=== PATIENT | male | born 1960 | race American Indian/Alaskan Native ===

== ENCOUNTER 2016-10-26 12:15 | Inpatient (IN) | payer MEDICARE ==
[2016-10-26 14:17] LABS: Basophils % (Auto) 0.9 % (0.0-1.8); Eosinophils % (Auto) 1.9 % (0.0-4.3); Hematocrit 46.4 % (35.5-45.6); Hemoglobin 15.4 gm/dl (11.8-15.2); Mean Corpuscular HGB Conc 33 % (32-34); Mean Corpuscular Hemoglobin 27 pg (28-32); Mean Corpuscular Volume 81 fl (84-94); Platelet Count 262 K/mm3 (140-440); Red Blood Count 5.72 M/mm3 (3.65-5.03); Red Cell Distribution Width 13.8 % (13.2-15.2); White Blood Count 10.9 K/mm3 (4.5-11.0)
[2016-10-26 14:25] LABS: INR 1.01 (0.87-1.13); Partial Thromboplastin Time 24.7 Sec. (24.2-36.6)
[2016-10-26 14:35] LABS: Albumin 3.9 g/dL (3.9-5); Albumin/Globulin Ratio 1.3 %; Bilirubin,Total 0.6 mg/dL (0.1-1.2); Calcium 10.2 mg/dL (8.4-10.2); Chloride 97.5 mmol/L (98-107); Magnesium 2.1 mg/dL (1.7-2.3); Potassium 4.4 mmol/L (3.6-5.0)
--- NOTE | 2016-10-26 14:40 | Emergency Department Report ---
HPI - General Chief Complaint: Altered Mental Status Time Seen by Provider: 10/26/16 13:55 - HPI HPI: Chief complaint: Dehydration HPI: Patient states that he's been home from the hospital since October 10 where he was admitted for a stroke. Patient states he's been unable to eat since then and has a feeding tube in. Patient states that the feeding tube feedings do not agree with him and every time he gets them he vomits. Patient states he' s only been able to keep water down through his PEG tube since he got home. Patient also states that he was put on Coumadin as well as other medications upon discharge but never received any of his medications. Patient states he has not taken any medications since he got home. Patient is here because he was sent by his home health nurse to rule out dehydration. Patient is emotionally labile. Patient denies any new weaknesses. Patient is unable to walk. Mode of arrival: EMS Source: Patient old chart and nursing notes Began: See above Duration: See above Context: See above Quality: Denies pain Severity: 0 out of 10 Improved with: Nothing Worsened with: Feedings Associated signs and symptoms: No cough or cold or fever. No diarrhea ED Past Medical Hx - Past Medical History Hx Hypertension: Yes Hx CVA: Yes Hx Heart Attack/AMI: Yes Hx Congestive Heart Failure: Yes Hx Diabetes: Yes Hx Renal Disease: Yes (CHRONIC KIDNEY DISEASE) Hx Seizures: Yes Hx Asthma: No Hx COPD: No Hx HIV: No Additional medical history: AFIB - Surgical History Hx Coronary Stent: Yes Hx Open Heart Surgery: Yes (double bypass September 2013) Hx Pacemaker: No Hx Internal Defibrillator: Yes - Social History Smoking Status: Never Smoker Substance Use Type: None - Medications Home Medications: Home Medications Medication Instructions Recorded Confirmed Last Taken Type Aspirin [Aspirin BABY CHEW TAB] 81 mg PO QDAY #30 tab.chew 05/25/16 09/03/16 Unknown Rx Carvedilol [Coreg] 25 mg PO BID #60 tablet 05/25/16 09/03/16 Unknown Rx Clopidogrel [Plavix] 75 mg PO QDAY #30 tablet 05/25/16 09/03/16 Unknown Rx Gabapentin [Neurontin] 100 mg PO Q8HR #90 capsule 05/25/16 09/03/16 Unknown Rx Insulin NPH/Regular [NovoLIN 70/30] 22 unit SUB-Q BIDDIAB #1 units 05/25/16 Unknown Rx Simvastatin [Zocor TAB] 40 mg PO QHS #30 tablet 05/25/16 09/03/16 Unknown Rx oxyCODONE /ACETAMINOPHEN [Percocet 1 tab PO Q6HR PRN #20 tablet 09/03/16 Unknown Rx 5/325] ED Review of Systems ROS: Stated complaint: LOC/AMS Other details as noted in HPI ROS Constitutional: No fever ENT: No uri symptoms Cardiovascular: No chest pain Respiratory: No sob or cough GI: Nodiarrhea : No dysuria frequency or urgency, Skin: No rash Neuro: See HPI Psych: No depression Murphy/lymph: No edema Physical Exam - Physical Exam Vital Signs: Vital Signs 10/26/16 13:05 Temperature 97.2 F L Pulse Rate 101 H Respiratory 16 Rate Blood Pressure 122/88 O2 Sat by Pulse 100 Oximetry Physical Exam: GENERAL: The patient is well-developed well-nourished . HEENT: Normocephalic. Atraumatic. Extraocular motions are intact. Patient has moist mucous membranes. NECK: Supple. No meningitic signs are noted. There is no adenopathy noted. CHEST/LUNGS: Clear to auscultation. There is no respiratory distress noted. HEART/CARDIOVASCULAR: Regular. There is no tachycardia. There is no gallop rub or murmur. ABDOMEN: Abdomen is soft, nontender. Patient has normal bowel sounds. There is no abdominal distention. SKIN: There is no rash. There is no edema. There is no diaphoresis. NEURO: The patient is awake, alert, and oriented. The patient is cooperative. The patient dysarthria. Patient's left arm weaker than his right and patient has incoordination of his right side with finger to nose. No drift to his lower extremities. MUSCULOSKELETAL: There is no tenderness or deformity. There is no evidence of acute injury. ED Course Vital Signs 10/26/16 13:05 Temperature 97.2 F L Pulse Rate 101 H Respiratory 16 Rate Blood Pressure 122/88 O2 Sat by Pulse 100 Oximetry ED Medical Decision Making - Lab Data Result diagrams: 10/26/16 13:54 10/26/16 13:54 Laboratory Tests 10/26/16 10/26/16 10/26/16 13:54 13:54 13:54 PT 13.2 INR 1.01 APTT 24.7 Lactic Acid 2.7 H* Magnesium 2.1 Total Bilirubin 0.6 Laboratory Tests 10/26/16 15:17 Ur Specific [place] 1.023 Urine Protein >500 Urine Glucose (UA) >=500 Urine Ketones Tr Urine Urobilinogen < 2.0 Urine WBC (Auto) < 1.0 Urine RBC (Auto) 1.0 U Epithel Cells (Auto) < 1.0 - EKG Data -: EKG Interpreted by Me EKG shows normal: sinus rhythm Rate: normal (100) - EKG Data When compared to previous EKG there are: no significant change Interpretation: LVH (with repolarization abnormality), other (atrial abnormality ) - Radiology Data Radiology results: report reviewed (chest x-ray shows no acute process.) Critical care attestation.: If time is entered above; I have spent that time in minutes in the direct care of this critically ill patient, excluding procedure time. ED Disposition Clinical Impression: Dehydration, Renal insufficiency, Hyperglycemia, Elevated lactic acid level Disposition: OP ADMITTED IP TO THIS HOSP Is pt being admited?: Yes Does the pt Need Aspirin: Yes Condition: Fair Time of Disposition: 15:38 (admit to the hospitalist)
--- NOTE | 2016-10-26 15:23 | XRay Report ---
CHEST ONE VIEW INDICATION: Shortness of breath. COMPARISON: 09/03/2016. FINDINGS: Portable, single, frontal chest radiograph demonstrates stable cardiomediastinal silhouette, post CABG changes and left AICD with single ventricular lead. Slight right mid lung atelectasis; otherwise unremarkable lungs. Stable bones. Extrinsic EKG leads. CONCLUSION: No acute disease in the chest. Thank you for the opportunity to participate in this patient's care.
[2016-10-26 15:52] LABS: Bacteria,Urine 1+ /HPF (Negative); Bilirubin,Urine NEG (Negative); Blood,Urine NEG (Negative); Ketones,Urine TR mg/dL (Negative); Leukocyte Esterase,Urine NEG (Negative); Mucus,Urine FEW /HPF; Nitrite,Urine NEG (Negative); Protein,Urine >500 mg/dL (Negative); Urobilinogen,Urine < 2.0 mg/dL (<2.0); WBC,Urine < 1.0 /HPF (0.0-6.0)
[2016-10-26] MEDS ORDERED: ASPIRIN PO ONE (17:24)
--- NOTE | 2016-10-26 17:53 | Admit Criteria Form ---
Admission Criteria Documentation: RENAL FAILURE, ACUTE Clinical Indications for Admission to Inpatient Care ( Place 'X' for any and all applicable criteria): Admission is indicated for ALL (if I & II) or III of the following [A](2)(3)(4)( 5)(6)(7): [ ]I. Acute renal failure as indicated by ANY ONE of the following: [ ]a) A 3-fold rise in serum creatinine from baseline [ ]b) Serum creatinine greater than 4 mg/dL (354 micromoles/L) with an acute rise greater than 0.5 mg/dL (44.2 micromoles/L) [ ]c) Reduction of more than 75% in estimated glomerular filtration rate from baseline [ ]d) Estimated glomerular filtration rate less than 35 mL/min/1.73m2 (0.59mL/sec/1.73m2)in a child up to 18 years of age [ ]e) Anuria indicated by ALL of the following: [ ]i) Adequate volume status [ ]ii) Cessation of urine output indicated by ANY ONE of the following: [ ]1) Urine output less than 0.3 mL/kg/hr for 24 hours [ ]2) Anuria (urine output less than 0.1 mL/kg/ hr) for 12 hours [X] II. Renal failure cannot be managed in an outpatient setting or observational care setting as indicating by ANY ONE of the following: [ ]a) Altered mental status that is severe or persistent [ ]b) Volume overload or Respiratory distress (eg, clinically significant pulmonary edema) that is severe or persistent [ ]c) Cardiac arrhythmias of immediate concern [ ]d) Hemodynamic instability [ ]e) Clinically significant electrolyte abnormality that requires inpatient care (eg, hyperkalemia with severe ECG findings)[B] [X]f) Clinically significant metabolic abnormality (eg, acidosis) that is severe or persistent [ ]g) Acute treatment of renal failure (eg, renal replacement therapy) not feasible or appropriate in observational care setting [ ]h) Clinical situation too unstable or uncertain (eg, inadequate urine output, ongoing decline in renal function, etiology unclear) [ ]i) Necessary support and caregiver ability to comply with outpatient treatment cannot be arranged in observation care timeframe (eg, within 24 hours) [ ]j) Other significant finding or clinical condition judged not to be within scope of observation care [X]III.General contraindications and/or Inappropriate clinical situations for Observational Care in patients with Acute Renal Failure, when ANY ONE of the following is required: [X]a) Prediction of prolongation of LOS based on ANY ONE of the following may be considered as a contraindication for observational care 2, 3, 4, 5, 6, 7, 8 , 9, 10, 11 [ ]i) Age > 65 yrs. [X]ii) Patient arriving by ambulance [ ]iii) Patient with high acuity [ ]iv) Patient requiring vital sign monitoring [ ]v) Patient on IV medication [ ]b) Systolic blood pressures 180mmHg 3,12 [ ]c) Patient with altered mental status including delirium and other alteration of consciousness, (3) [ ]d) Patient whose discharge disposition will be to a half-way home or rehabilitation home should not be managed in Emergency Department Observation Unit. CMS rule requires 3 days hospital stay before such placement.3,13 [ ]e) Patient with failure to thrive due to broad array of etiologies 3, 16,17 [ ]f) Inability to ambulate 3,14 Extended stay beyond goal length of stay may be needed for(13) [ ]a) Continuing uremic complications [ ]b) Care for comorbidities [ ]c) acute renal failure [ ]d) Need for dialysis The original [employer] content created by [employer] has been revised. The portions of the content which have been revised are identified through the use of italic text or in bold, and [facility] has neither reviewed nor approved the modified material. All other unmodified content is copyright [facility]. Please see references footnoted in the original [facility] edition 2016 Admission Criteria Met: Yes
--- NOTE | 2016-10-26 18:04 | History and Physical Report ---
History of Present Illness Date of examination: 10/26/16 Date of admission: 10/26/16 15:55 Chief complaint: weakness and dehydration for few days History of present illness: Mr. Schmitz is a 55 yo AAM who presented to the ER after being sent in by his home health nurse for dehydration; he was diagnosed with a CVA on October 08 and subsequently ended with a PEG with LT sided weakness; he reported that since he has been home he continues to vomit the tube feeding whenever he takes it and so he has stopped the feeds; he reported that he can now swallow liquids ; no fever; no pain; stoke affected his LT eye; he also reported that he has not taken his medications since discharge including blood thinner as there was a problem with the RX as per his pharmacy and they were going to contact the doctor Past History Past Medical History: atrial fib, diabetes, hypertension, other (cva) Past Surgical History: Other (PEG; defibrillator) Social history: full code. denies: smoking, alcohol abuse, prescription drug abuse, IV drug use Family history: hypertension Medications and Allergies Allergies Allergy/AdvReac Type Severity Reaction Status Date / Time Penicillins Allergy confusion Verified 05/25/16 21:10 Home Medications Medication Instructions Recorded Confirmed Last Taken Type Aspirin [Aspirin BABY CHEW TAB] 81 mg PO QDAY #30 tab.chew 05/25/16 10/26/16 Unknown Rx Carvedilol [Coreg] 25 mg PO BID #60 tablet 05/25/16 10/26/16 Unknown Rx Clopidogrel [Plavix] 75 mg PO QDAY #30 tablet 05/25/16 10/26/16 Unknown Rx Gabapentin [Neurontin] 100 mg PO Q8HR #90 capsule 05/25/16 10/26/16 Unknown Rx Insulin NPH/Regular [NovoLIN 70/30] 22 unit SUB-Q BIDDIAB #1 units 05/25/16 Unknown Rx Simvastatin [Zocor TAB] 40 mg PO QHS #30 tablet 05/25/16 10/26/16 Unknown Rx oxyCODONE /ACETAMINOPHEN [Percocet 1 tab PO Q6HR PRN #20 tablet 09/03/16 Unknown Rx 5/325] Review of Systems Constitutional: weakness, malaise, lethargy, poor appetite, no weight loss, no weight gain, no fever, no chills, no anorexia, no fatigue Ears, nose, mouth and throat: no ear pain, no ear discharge, no tinnitis, no decreased hearing Cardiovascular: no chest pain, no orthopnea, no palpitations, no rapid/ irregular heart beat Respiratory: no cough, no cough with sputum, no excessive sputum, no hemoptysis , no shortness of breath Gastrointestinal: vomiting, no abdominal pain, no nausea, no diarrhea, no constipation, no change in bowel habits Genitourinary Male: no urinary frequency, no urinary hesitancy, no nocturia Rectal: no pain, no incontinence, no bleeding Musculoskeletal: no neck stiffness, no neck pain, no shooting arm pain, no arm numbness/tingling Integumentary: no rash, no pruritis, no redness, no sores Neurological: no head injury, no transient paralysis, no paralysis, no weakness Psychiatric: no anxiety, no memory loss, no change in sleep habits Endocrine: no cold intolerance, no heat intolerance, no polyphagia, no excessive thirst Hematologic/Lymphatic: no easy bruising, no easy bleeding Allergic/Immunologic: no urticaria Exam - Constitutional Vitals: Temp Pulse Resp BP Pulse Ox 97.2 F L 103 H 16 143/103 95 10/26/16 13:05 10/26/16 17:00 10/26/16 17:00 10/26/16 17:00 10/26/16 17:00 General appearance: Present: no acute distress, well-nourished - EENT Eyes: Present: PERRL. Absent: scleral icterus, conjunctival injection ENT: hearing intact, clear oral mucosa (dry; foul smell), poor dentition - Neck Neck: Present: supple, normal ROM. Absent: enlarged thyroid, masses or JVD - Respiratory Respiratory effort: normal Respiratory: negative: diminished, rales, rhonchi, wheezing - Cardiovascular Rhythm: regular Heart Sounds: Present: S1 & S2. Absent: gallop - Extremities Extremities: no ischemia, pulses intact, pulses symmetrical, No edema Peripheral Pulses: within normal limits - Abdominal General gastrointestinal: Present: soft, non-tender, non-distended, normal bowel sounds, other (PEG) Male genitourinary: Present: deferred - Rectal Rectal Exam: deferred - Integumentary Integumentary: Present: clear - Musculoskeletal Musculoskeletal: generalized weakness - Psychiatric Psychiatric: appropriate mood/affect, intact judgment & insight, cooperative - Neurologic Neurologic: CNII-XII intact, focal deficits (power 4 in LT UE / LE; power 3 in RT LE / 4 in RT UE) Results - Labs CBC & Chem 7: 10/26/16 13:54 10/26/16 13:54 - Imaging and Cardiology Chest x-ray: report reviewed (no acute abn ) Assessment and Plan 1. Acute renal failure due to vasomotor nephropathy from dehydration- will admit as an inpatient as more than 2 MN are required for treatment; IVF; monitor renal function; renal US; avoid nephrotoxins 2. DM 2- restart PEG feeds and consult dietitian; accucheck and insulin sliding scale 3. Benign HTN- restart home meds 4. OLD CVA with dyphagia adn debility - swallow eval; restart home meds; PT 5. Atrial fib- ASA; will try to get old records to determine if he should be on anticoagualation/ CI to it 6. DVT prophylaxis-lovenox
[2016-10-26] MEDS ORDERED: TYLENOL PO PRN (19:32)
[2016-10-26] MEDS ORDERED: ZOFRAN IV PRN (19:32)
[2016-10-26] MEDS ORDERED: REGLAN IV PRN (19:32)
[2016-10-26] MEDS ORDERED: PANCREAZE DR 10,500 UNIT FEEDTUBE PRN ×2 (19:32)
[2016-10-26] MEDS ORDERED: SODIUM BICARBONATE FEEDTUBE PRN ×2 (19:32)
[2016-10-26] MEDS ORDERED: SIMPLE SYRUP FEEDTUBE PRN ×3 (19:32)
[2016-10-26] MEDS: NACL 0.45% 1000 ML 1,000 ML IV SCH (21:27)
[2016-10-26] MEDS: NEURONTIN PO SCH (21:38)
[2016-10-26] MEDS: COREG PO SCH (21:38)
[2016-10-26] MEDS: ZOCOR PO SCH (21:38)
[2016-10-26] MEDS: NOVOLOG SUB-Q SCH (22:35)
[2016-10-27] MEDS: NOVOLOG SUB-Q SCH ×4 (02:07→17:52)
[2016-10-27] MEDS: NEURONTIN PO SCH ×3 (06:30→22:16)
[2016-10-27 07:54] LABS: BUN/Creatinine Ratio 10.43; Calcium 9.8 mg/dL (8.4-10.2); Chloride 99.6 mmol/L (98-107)
[2016-10-27] MEDS: COREG PO SCH ×2 (09:45→22:14)
[2016-10-27] MEDS: BABY ASPIRIN PO SCH (09:46)
[2016-10-27] MEDS: PLAVIX PO SCH (09:47)
[2016-10-27] MEDS ORDERED: LOVENOX SUB-Q SCH (10:00)
--- NOTE | 2016-10-27 10:36 | Ultrasound Report ---
Renal sonogram: History: Acute renal failure. Findings: Right kidney measures 12.8 x 6.3 x 4.3 cm. Cortical thickness is 1.4 cm. Cyst in the right kidney measures 4 x 3.7 x 3.7 cm. Left kidney measures 10.1 x 4.1 x 4 cm. Cortical thickness is 1 cm. Impression: Single right renal cyst. No hydronephrosis.
[2016-10-27] MEDS ORDERED: SODIUM BICARBONATE FEEDTUBE PRN (11:12)
[2016-10-27] MEDS ORDERED: PANCREAZE DR 10,500 UNIT FEEDTUBE PRN (11:12)
[2016-10-27] MEDS ORDERED: SIMPLE SYRUP FEEDTUBE PRN ×2 (11:12)
--- NOTE | 2016-10-27 12:50 | Progress Note ---
Assessment and Plan Assessment and plan: 55-year-old male presents with acute renal failure after old CVA. Total Time Spent with Patient (Minutes): 20 - Patient Problems (1) Dehydration Current Visit: Yes Status: Acute Plan to address problem: Dehydration at this point was secondary to lack of to feeds. It is being corrected. Once patient did get the to the could not tolerate it. We'll obtain dietitian consult at this particular time give patient is to be started. Treat malnutrition. Will also need placement. (2) Elevated lactic acid level Current Visit: Yes Status: Acute Plan to address problem: Resolved lactic acid has decreased. (3) Abnormality of gait following cerebrovascular accident (CVA) Current Visit: No Status: Chronic (4) Hyperglycemia due to type 1 diabetes mellitus Current Visit: No Status: Acute Plan to address problem: Patient has much better control. Patient not getting any long-acting insulin until PEG tube feedings can be arranged. And has a more stable means of by mouth nutrition. Now sliding-scale has been effective. (5) CAD (coronary artery disease) of bypass graft Current Visit: No Status: Chronic Qualifiers: [place] vs. transplanted heart: [place] heart Associated angina: without angina Qualified Code(s): I25.810 - Atherosclerosis of coronary artery bypass graft(s) without angina pectoris Plan to address problem: Present patient remains chest pain free no shortness of breath no different exertion. (6) CKD (chronic kidney disease) stage 3, GFR 30-59 ml/min Current Visit: No Status: Chronic Plan to address problem: She has acute on chronic UTI. At present a lot of this appears to be chronic kidney disease. Simple hydration. (7) Vasomotor nephropathy Current Visit: Yes Status: Acute Plan to address problem: We'll correct with aggressive IV fluids seems to be resolving. Would knee placement for debility. (8) Debility Current Visit: Yes Status: Acute Plan to address problem: Debility happen after hemiparesis following CVA. The main thing was patient was not up to get adequate by mouth intake effectively. Therefore had a setback. Will benefit from half-way facility. penit[facility]iary options. Also all family options have been addressed and unable to adequately take care of patient. History Interval history: Patient crying very emotional states that in this condition his cannot take care of him at home. Patient states he never got the tube feeding material out and became dehydrated. Admission appears to be dehydration at this particular time. Want to know after fluids they did not have a significant decrease in BUN/creatinine ratio. Will speak with case management about placement issues. Patient states that his just had surgery herself and cannot take care of him at this time. And also cannot can no longer walk and have problems with debility since this hospital stay since becoming dehydrated. This would've been a great case for chronic care management. Hospitalist Physical - Constitutional Vitals: Temp Pulse Resp BP Pulse Ox 98.2 F 76 18 122/84 98 10/27/16 08:00 10/27/16 08:00 10/27/16 08:00 10/27/16 08:00 10/27/16 08:00 General appearance: Present: no acute distress, well-nourished - EENT Eyes: Present: PERRL, EOM intact ENT: hearing intact, clear oral mucosa, dentition normal, poor dentition - Neck Neck: Present: supple, normal ROM - Respiratory Respiratory: bilateral: CTA - Cardiovascular Rhythm: regular Heart Sounds: Present: S1 & S2 - Extremities Extremities: no ischemia, pulses intact Extremity abnormal: other (dense hemiparesis) Peripheral Pulses: within normal limits - Abdominal General gastrointestinal: soft, non-tender, other (review his peg placement) - Integumentary Integumentary: Present: clear - Psychiatric Psychiatric: depressed - Neurologic Neurologic: focal deficits - Allied Health Allied health notes reviewed: PT, case management Results - Labs CBC & Chem 7: 10/26/16 13:54 10/27/16 06:58 Labs: Laboratory Last Values WBC 10.9 K/mm3 (4.5-11.0) 10/26/16 13:54 RBC 5.72 M/mm3 (3.65-5.03) H 10/26/16 13:54 Hgb 15.4 gm/dl (11.8-15.2) H 10/26/16 13:54 Hct 46.4 % (35.5-45.6) H 10/26/16 13:54 MCV 81 fl (84-94) L 10/26/16 13:54 MCH 27 pg (28-32) L 10/26/16 13:54 MCHC 33 % (32-34) 10/26/16 13:54 RDW 13.8 % (13.2-15.2) 10/26/16 13:54 Plt Count 262 K/mm3 (140-440) 10/26/16 13:54 Lymph % (Auto) 19.8 % (13.4-35.0) 10/26/16 13:54 [place] % (Auto) 8.1 % (0.0-7.3) H 10/26/16 13:54 Eos % (Auto) 1.9 % (0.0-4.3) 10/26/16 13:54 Baso % (Auto) 0.9 % (0.0-1.8) 10/26/16 13:54 Lymph # 2.2 K/mm3 (1.2-5.4) 10/26/16 13:54 [place] # 0.9 K/mm3 (0.0-0.8) H 10/26/16 13:54 Eos # 0.2 K/mm3 (0.0-0.4) 10/26/16 13:54 Baso # 0.1 K/mm3 (0.0-0.1) 10/26/16 13:54 Seg Neutrophils % 69.3 % (40.0-70.0) 10/26/16 13:54 Seg Neutrophils # 7.6 K/mm3 (1.8-7.7) 10/26/16 13:54 PT 13.2 Sec. (12.2-14.9) 10/26/16 13:54 INR 1.01 (0.87-1.13) 10/26/16 13:54 APTT 24.7 Sec. (24.2-36.6) 10/26/16 13:54 Sodium 141 mmol/L (137-145) 10/27/16 06:58 Potassium 4.0 mmol/L (3.6-5.0) 10/27/16 06:58 Chloride 99.6 mmol/L (98-107) 10/27/16 06:58 Carbon Dioxide 27 mmol/L (22-30) 10/27/16 06:58 Anion Gap 18 mmol/L 10/27/16 06:58 BUN 24 mg/dL (9-20) H 10/27/16 06:58 Creatinine 2.3 mg/dL (0.8-1.5) H 10/27/16 06:58 Estimated GFR 36 ml/min 10/27/16 06:58 BUN/Creatinine Ratio 10.43 % 10/27/16 06:58 Glucose 122 mg/dL (75-100) H 10/27/16 06:58 POC Glucose 169 (70-105) H 10/27/16 12:02 Lactic Acid 2.1 mmol/L (0.7-2.0) H* 10/26/16 15:37 Calcium 9.8 mg/dL (8.4-10.2) 10/27/16 06:58 Magnesium 2.1 mg/dL (1.7-2.3) 10/26/16 13:54 Total Bilirubin 0.6 mg/dL (0.1-1.2) 10/26/16 13:54 AST 9 units/L (5-40) 10/26/16 13:54 ALT 12 units/L (7-56) 10/26/16 13:54 Alkaline Phosphatase 88 units/L (35-129) 10/26/16 13:54 Total Protein 7.0 g/dL (6.3-8.2) 10/26/16 13:54 Albumin 3.9 g/dL (3.9-5) 10/26/16 13:54 Albumin/Globulin Ratio 1.3 % 10/26/16 13:54 TSH 1.570 mlU/mL (0.270-4.200) 10/26/16 13:54 Urine Color Yellow (Yellow) 10/26/16 15:17 Urine Turbidity Clear (Clear) 10/26/16 15:17 Urine pH 6.0 (5.0-7.0) 10/26/16 15:17 Ur Specific [place] 1.023 (1.003-1.030) 10/26/16 15:17 Urine Protein >500 mg/dL (Negative) 10/26/16 15:17 Urine Glucose (UA) >=500 mg/dL (Negative) 10/26/16 15:17 Urine Ketones Tr mg/dL (Negative) 10/26/16 15:17 Urine Blood Neg (Negative) 10/26/16 15:17 Urine Nitrite Neg (Negative) 10/26/16 15:17 Urine Bilirubin Neg (Negative) 10/26/16 15:17 Urine Urobilinogen < 2.0 mg/dL (<2.0) 10/26/16 15:17 Ur Leukocyte Esterase Neg (Negative) 10/26/16 15:17 Urine WBC (Auto) < 1.0 /HPF (0.0-6.0) 10/26/16 15:17 Urine RBC (Auto) 1.0 /HPF (0.0-6.0) 10/26/16 15:17 U Epithel Cells (Auto) < 1.0 /HPF (0-13.0) 10/26/16 15:17 Urine Bacteria (Auto) 1+ /HPF (Negative) 10/26/16 15:17 Urine Mucus Few /HPF 10/26/16 15:17
--- NOTE | 2016-10-27 13:25 | Fluoroscopy Report ---
Modified barium swallow: History: Evaluate swallowing. Findings: There is no anatomic obstruction to the flow of liquid thin barium and semisolid food through the cervical esophagus. Suspicion of penetration was noted with liquids. Additional information will be provided by speech therapist. Impression: Findings as described.
[2016-10-27] MEDS: ZOCOR PO SCH (22:16)
[2016-10-28] MEDS: NOVOLOG SUB-Q SCH ×4 (01:00→18:13)
[2016-10-28] MEDS: NACL 0.45% 1000 ML 1,000 ML IV SCH (04:07)
[2016-10-28] MEDS: NEURONTIN PO SCH ×3 (06:36→21:00)
[2016-10-28 09:10] LABS: BUN/Creatinine Ratio 10.9; Calcium 9.5 mg/dL (8.4-10.2); Chloride 97.6 mmol/L (98-107)
[2016-10-28] MEDS ORDERED: LOVENOX SUB-Q SCH (10:00)
[2016-10-28] MEDS: BABY ASPIRIN PO SCH (10:39)
[2016-10-28] MEDS: PLAVIX PO SCH (10:39)
[2016-10-28] MEDS: COREG PO SCH ×2 (10:39→21:04)
[2016-10-28] MEDS: PERCOCET 5/325 PO PRN ×2 (10:40→21:00)
--- NOTE | 2016-10-28 12:21 | Progress Note ---
Assessment and Plan Assessment and plan: Patient is a 55-year-old man with a history of insulin-dependent diabetes mellitus, atrial fibrillation, hypertension, CVA and left-sided hemiparesis and PEG tube but still eats by mouth who was sent here from home due to anorexia with dehydration and weakness. 1. Acute renal failure, vasomotor nephropathy present on admission due to dehydration: Continue IV hydration, continue to monitor 2. Dysphagia: Speech evaluation 3. 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 Atrial fibrillation on aspirin only 5. Type 2 diabetes mellitus on insulin, chronic worsening: Adjust insulin Patient states he was recently discharged after PEG tube placement and was not sent home on any diet; therefore, he was restricted to just water Pending physical therapy evaluation for placement History Interval history: Patient seen and examined. Follow up on weakness and dehydration which is improved but he still has dysphagia. Overnight uneventful. No cp, sob, n/v or severe headaches. Imaging, old records, testing, labs, nursing notes reviewed. Hospitalist Physical - Physical exam Narrative exam: GEN: WDWN, NAD, AWAKE, ALERT, ORIENTATED 3 CVS: Irregular regular, NORMAL S1S2 LUNGS/CHEST: CTA B, NORMAL CHEST EXPANSION B, GOOD AIR ENTRY B ABD: SOFT NTND, PEG tube in place, the bumper tenderness GBS, NO REBOUND OR GUARDING EXT/SKIN: NO SIGNIFICANT EDEMA OR RASH NEURO: CN 2-12 GROSSLY INTACT, NO NEW FOCAL DEFICITS, old left hemiparesis, dysarthria and visual loss PSY: CALM - Constitutional Vitals: Temp Pulse Resp BP Pulse Ox 98.1 F 80 18 118/84 98 10/28/16 07:59 10/28/16 07:59 10/28/16 07:59 10/28/16 07:59 10/28/16 07:59 General appearance: Present: no acute distress, well-nourished Results - Labs CBC & Chem 7: 10/26/16 13:54 10/28/16 07:55 Labs: Laboratory Last Values WBC 10.9 K/mm3 (4.5-11.0) 10/26/16 13:54 RBC 5.72 M/mm3 (3.65-5.03) H 10/26/16 13:54 Hgb 15.4 gm/dl (11.8-15.2) H 10/26/16 13:54 Hct 46.4 % (35.5-45.6) H 10/26/16 13:54 MCV 81 fl (84-94) L 10/26/16 13:54 MCH 27 pg (28-32) L 10/26/16 13:54 MCHC 33 % (32-34) 10/26/16 13:54 RDW 13.8 % (13.2-15.2) 10/26/16 13:54 Plt Count 262 K/mm3 (140-440) 10/26/16 13:54 Lymph % (Auto) 19.8 % (13.4-35.0) 10/26/16 13:54 Lamb % (Auto) 8.1 % (0.0-7.3) H 10/26/16 13:54 Eos % (Auto) 1.9 % (0.0-4.3) 10/26/16 13:54 Baso % (Auto) 0.9 % (0.0-1.8) 10/26/16 13:54 Lymph # 2.2 K/mm3 (1.2-5.4) 10/26/16 13:54 Lamb # 0.9 K/mm3 (0.0-0.8) H 10/26/16 13:54 Eos # 0.2 K/mm3 (0.0-0.4) 10/26/16 13:54 Baso # 0.1 K/mm3 (0.0-0.1) 10/26/16 13:54 Seg Neutrophils % 69.3 % (40.0-70.0) 10/26/16 13:54 Seg Neutrophils # 7.6 K/mm3 (1.8-7.7) 10/26/16 13:54 PT 13.2 Sec. (12.2-14.9) 10/26/16 13:54 INR 1.01 (0.87-1.13) 10/26/16 13:54 APTT 24.7 Sec. (24.2-36.6) 10/26/16 13:54 Sodium 135 mmol/L (137-145) L 10/28/16 07:55 Potassium 4.0 mmol/L (3.6-5.0) 10/28/16 07:55 Chloride 97.6 mmol/L (98-107) L 10/28/16 07:55 Carbon Dioxide 26 mmol/L (22-30) 10/28/16 07:55 Anion Gap 15 mmol/L 10/28/16 07:55 BUN 24 mg/dL (9-20) H 10/28/16 07:55 Creatinine 2.2 mg/dL (0.8-1.5) H 10/28/16 07:55 Estimated GFR 38 ml/min 10/28/16 07:55 BUN/Creatinine Ratio 10.90 % 10/28/16 07:55 Glucose 124 mg/dL (75-100) H 10/28/16 07:55 POC Glucose 126 (70-105) H 10/28/16 06:37 Lactic Acid 2.1 mmol/L (0.7-2.0) H* 10/26/16 15:37 Calcium 9.5 mg/dL (8.4-10.2) 10/28/16 07:55 Magnesium 2.1 mg/dL (1.7-2.3) 10/26/16 13:54 Total Bilirubin 0.6 mg/dL (0.1-1.2) 10/26/16 13:54 AST 9 units/L (5-40) 10/26/16 13:54 ALT 12 units/L (7-56) 10/26/16 13:54 Alkaline Phosphatase 88 units/L (35-129) 10/26/16 13:54 Total Protein 7.0 g/dL (6.3-8.2) 10/26/16 13:54 Albumin 3.9 g/dL (3.9-5) 10/26/16 13:54 Albumin/Globulin Ratio 1.3 % 10/26/16 13:54 TSH 1.570 mlU/mL (0.270-4.200) 10/26/16 13:54 Urine Color Yellow (Yellow) 10/26/16 15:17 Urine Turbidity Clear (Clear) 10/26/16 15:17 Urine pH 6.0 (5.0-7.0) 10/26/16 15:17 Ur Specific [place] 1.023 (1.003-1.030) 10/26/16 15:17 Urine Protein >500 mg/dL (Negative) 10/26/16 15:17 Urine Glucose (UA) >=500 mg/dL (Negative) 10/26/16 15:17 Urine Ketones Tr mg/dL (Negative) 10/26/16 15:17 Urine Blood Neg (Negative) 10/26/16 15:17 Urine Nitrite Neg (Negative) 10/26/16 15: Urine Bilirubin Neg (Negative) 10/26/16 15:17 Urine Urobilinogen < 2.0 mg/dL (<2.0) 10/26/16 15:17 Ur Leukocyte Esterase Neg (Negative) 10/26/16 15:17 Urine WBC (Auto) < 1.0 /HPF (0.0-6.0) 10/26/16 15:17 Urine RBC (Auto) 1.0 /HPF (0.0-6.0) 10/26/16 15:17 U Epithel Cells (Auto) < 1.0 /HPF (0-13.0) 10/26/16 15:17 Urine Bacteria (Auto) 1+ /HPF (Negative) 10/26/16 15: Urine Mucus Few /HPF 10/26/16 15:17
[2016-10-28] MEDS: NACL 0.9% 1000 ML 1,000 ML IV SCH (14:17)
[2016-10-28] MEDS ORDERED: ALUM-MAG HYDROX-SIMETH 200-200-20MG/5ML PO PRN (20:00)
[2016-10-28] MEDS: ZOCOR PO SCH (20:59)
[2016-10-29] MEDS: NOVOLOG SUB-Q SCH ×4 (00:11→17:29)
[2016-10-29] MEDS: NEURONTIN PO SCH ×3 (06:31→22:33)
[2016-10-29 07:39] LABS: Hematocrit 38.2 % (35.5-45.6); Hemoglobin 12.7 gm/dl (11.8-15.2); Mean Corpuscular HGB Conc 33 % (32-34); Mean Corpuscular Hemoglobin 27 pg (28-32); Mean Corpuscular Volume 81 fl (84-94); Platelet Count 210 K/mm3 (140-440); Red Blood Count 4.72 M/mm3 (3.65-5.03); Red Cell Distribution Width 14.2 % (13.2-15.2); White Blood Count 7.6 K/mm3 (4.5-11.0)
[2016-10-29 07:52] LABS: Calcium 9.2 mg/dL (8.4-10.2); Chloride 100.8 mmol/L (98-107); Potassium 4.3 mmol/L (3.6-5.0)
[2016-10-29] MEDS: BABY ASPIRIN PO SCH (10:11)
[2016-10-29] MEDS: PLAVIX PO SCH (10:12)
[2016-10-29] MEDS: COREG PO SCH ×2 (10:12→22:33)
[2016-10-29] MEDS: PEPCID PO SCH ×2 (11:35→22:33)
--- NOTE | 2016-10-29 12:43 | Progress Note ---
Assessment and Plan Assessment and plan: Patient is a 55-year-old man with a history of insulin-dependent diabetes mellitus, atrial fibrillation, hypertension, CVA and left-sided hemiparesis and PEG tube but still eats by mouth who was sent here from home due to anorexia with dehydration and weakness. 1. Acute renal failure, vasomotor nephropathy present on admission due to dehydration: Continue IV hydration, continue to monitor 2. Dysphagia: Speech evaluation 3. 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 Atrial fibrillation on aspirin only, reason unclear no A/c 5. Type 2 diabetes mellitus on insulin, chronic worsening: Adjust insulin Patient states he was recently discharged after PEG tube placement and was not sent home on any diet; therefore, he only had water placement pending, had hernia surgery, so no caregiver at home. New issues: Pain around the PEG tube site-Consulted GI to adjust peg tube Productive cough, repeat chest x-ray and empirically treated with IV antibiotics (renal dose levaquin, allergic to pcn) while undergoing swallowing evaluation. History Interval history: Patient seen and examined. Follow up on weakness and dehydration which is improved but he still has dysphagia. Overnight uneventful. No cp, sob, n/v or severe headaches. Imaging, old records, testing, labs, nursing notes reviewed. His main issue is PEG site pains. He has sutures that are tight and uncomfortable. He also has a productive yellow brownish phlegm poa. Hospitalist Physical - Physical exam Narrative exam: GEN: WDWN, NAD, AWAKE, ALERT, ORIENTATED 3 CVS: Irregular regular, NORMAL S1S2 LUNGS/CHEST: CTA B, NORMAL CHEST EXPANSION B, GOOD AIR ENTRY B ABD: SOFT NTND, PEG tube in place, the bumper tenderness GBS, NO REBOUND OR GUARDING EXT/SKIN: NO SIGNIFICANT EDEMA OR RASH NEURO: CN 2-12 GROSSLY INTACT, NO NEW FOCAL DEFICITS, old left hemiparesis, dysarthria and visual loss PSY: CALM - Constitutional Vitals: Temp Pulse Resp BP Pulse Ox 98.1 F 80 18 104/71 97 10/29/16 08:00 10/29/16 08:00 10/29/16 08:00 10/29/16 08:00 10/29/16 08:00 General appearance: Present: no acute distress, well-nourished Results - Labs CBC & Chem 7: 10/29/16 06:54 10/29/16 06:54 Labs: Laboratory Last Values WBC 7.6 K/mm3 (4.5-11.0) 10/29/16 06:54 RBC 4.72 M/mm3 (3.65-5.03) 10/29/16 06:54 Hgb 12.7 gm/dl (11.8-15.2) 10/29/16 06:54 Hct 38.2 % (35.5-45.6) D 10/29/16 06:54 MCV 81 fl (84-94) L 10/29/16 06:54 MCH 27 pg (28-32) L 10/29/16 06:54 MCHC 33 % (32-34) 10/29/16 06:54 RDW 14.2 % (13.2-15.2) 10/29/16 06:54 Plt Count 210 K/mm3 (140-440) 10/29/16 06:54 Lymph % (Auto) 19.8 % (13.4-35.0) 10/26/16 13:54 Ellis % (Auto) 8.1 % (0.0-7.3) H 10/26/16 13:54 Eos % (Auto) 1.9 % (0.0-4.3) 10/26/16 13:54 Baso % (Auto) 0.9 % (0.0-1.8) 10/26/16 13:54 Lymph # 2.2 K/mm3 (1.2-5.4) 10/26/16 13:54 Ellis # 0.9 K/mm3 (0.0-0.8) H 10/26/16 13:54 Eos # 0.2 K/mm3 (0.0-0.4) 10/26/16 13:54 Baso # 0.1 K/mm3 (0.0-0.1) 10/26/16 13:54 Seg Neutrophils % 69.3 % (40.0-70.0) 10/26/16 13:54 Seg Neutrophils # 7.6 K/mm3 (1.8-7.7) 10/26/16 13:54 PT 13.2 Sec. (12.2-14.9) 10/26/16 13:54 INR 1.01 (0.87-1.13) 10/26/16 13:54 APTT 24.7 Sec. (24.2-36.6) 10/26/16 13:54 Sodium 135 mmol/L (137-145) L 10/28/16 07:55 Potassium 4.0 mmol/L (3.6-5.0) 10/28/16 07:55 Chloride 97.6 mmol/L (98-107) L 10/28/16 07:55 Carbon Dioxide 25 mmol/L (22-30) 10/29/16 06:54 Anion Gap 15 mmol/L 10/28/16 07:55 BUN 24 mg/dL (9-20) H 10/29/16 06:54 Creatinine 2.0 mg/dL (0.8-1.5) H 10/29/16 06:54 Estimated GFR 42 ml/min 10/29/16 06:54 BUN/Creatinine Ratio 12.00 % 10/29/16 06:54 Glucose 176 mg/dL (75-100) H 10/29/16 06:54 POC Glucose 194 (70-105) H 10/29/16 05:59 Lactic Acid 2.1 mmol/L (0.7-2.0) H* 10/26/16 15:37 Calcium 9.2 mg/dL (8.4-10.2) 10/29/16 06:54 Magnesium 2.1 mg/dL (1.7-2.3) 10/26/16 13:54 Total Bilirubin 0.6 mg/dL (0.1-1.2) 10/26/16 13:54 AST 9 units/L (5-40) 10/26/16 13:54 ALT 12 units/L (7-56) 10/26/16 13:54 Alkaline Phosphatase 88 units/L (35-129) 10/26/16 13:54 Total Protein 7.0 g/dL (6.3-8.2) 10/26/16 13:54 Albumin 3.9 g/dL (3.9-5) 10/26/16 13:54 Albumin/Globulin Ratio 1.3 % 10/26/16 13:54 TSH 1.570 mlU/mL (0.270-4.200) 10/26/16 13:54 Urine Color Yellow (Yellow) 10/26/16 15:17 Urine Turbidity Clear (Clear) 10/26/16 15: Urine pH 6.0 (5.0-7.0) 10/26/16 15: Ur Specific [place] 1.023 (1.003-1.030) 10/26/16 15: Urine Protein >500 mg/dL (Negative) 10/26/16 15:17 Urine Glucose (UA) >=500 mg/dL (Negative) 10/26/16 15: Urine Ketones Tr mg/dL (Negative) 10/26/16 15: Urine Blood Neg (Negative) 10/26/16 15: Urine Nitrite Neg (Negative) 10/26/16 15:17 Urine Bilirubin Neg (Negative) 10/26/16 15: Urine Urobilinogen < 2.0 mg/dL (<2.0) 10/26/16 15:17 Ur Leukocyte Esterase Neg (Negative) 10/26/16 15:17 Urine WBC (Auto) < 1.0 /HPF (0.0-6.0) 10/26/16 15: Urine RBC (Auto) 1.0 /HPF (0.0-6.0) 10/26/16 15: U Epithel Cells (Auto) < 1.0 /HPF (0-13.0) 10/26/16 15: Urine Bacteria (Auto) 1+ /HPF (Negative) 10/26/16 15: Urine Mucus Few /HPF 10/26/16 15:17
[2016-10-29] MEDS ORDERED: LEVAQUIN 750MG/150ML 150 ML IV SCH (13:00)
--- NOTE | 2016-10-29 14:01 | XRay Report ---
ROUTINE CHEST, TWO VIEWS: HISTORY: Cough. The trachea, heart, mediastinal contour, lung meza and bony thorax are unremarkable. IMPRESSION: No acute cardiopulmonary process. No significant change since the exam 3 days ago.
--- NOTE | 2016-10-29 14:55 | Consultation ---
History of Present Illness Consult date: 10/29/16 Requesting physician: HALIMA LAST Consult reason: known to you History of present illness: The patient is a 55 year old male with a history of CAD s/p CABG, ischemic cardiomyopathy s/p ICD, chronic systolic heart failure, CVA who was sent to the ER by his home health nurse for dehydration. He apparently suffered a stroke ( with residual left sided weakness) earlier this month and was discharged home with a PEG tube. He states that he we would vomit with his tube feeds and therefore discontinued them. He also reported that he was not taking any of his medications from his discharge from the hospital on October 10. Past History Past Medical History: CAD, hypertension, hyperlipidemia, other (cva) Past Surgical History: CABG, Other (PEG; defibrillator) Social history: full code. denies: smoking, alcohol abuse, prescription drug abuse, IV drug use Family history: hypertension Medications and Allergies Allergies Allergy/AdvReac Type Severity Reaction Status Date / Time Penicillins Allergy confusion Verified 05/25/16 21:10 Home Medications Medication Instructions Recorded Confirmed Last Taken Type Aspirin [Aspirin BABY CHEW TAB] 81 mg PO QDAY #30 tab.chew 05/25/16 10/26/16 Unknown Rx Carvedilol [Coreg] 25 mg PO BID #60 tablet 05/25/16 10/26/16 Unknown Rx Clopidogrel [Plavix] 75 mg PO QDAY #30 tablet 05/25/16 10/26/16 Unknown Rx Gabapentin [Neurontin] 100 mg PO Q8HR #90 capsule 05/25/16 10/26/16 Unknown Rx Insulin NPH/Regular [NovoLIN 70/30] 22 unit SUB-Q BIDDIAB #1 units 05/25/16 Unknown Rx Simvastatin [Zocor TAB] 40 mg PO QHS #30 tablet 05/25/16 10/26/16 Unknown Rx oxyCODONE /ACETAMINOPHEN [Percocet 1 tab PO Q6HR PRN #20 tablet 09/03/16 Unknown Rx 5/325] Active Meds: Active Medications Acetaminophen (Tylenol) 650 mg PO Q4H PRN PRN Reason: Pain MILD(1-3)/Fever >100.5/DAVIS Lipase/Protease/Amylase (Kami Juarez 10,500 Unit) 1 each FEEDTUBE PRN PRN PRN Reason: For Clogged Feeding Tube Aspirin (Baby Aspirin) 81 mg PO QDAY [facility] Last Admin: 10/29/16 10:11 Dose: 81 mg Carvedilol (Coreg) 25 mg PO BID [facility] Last Admin: 10/29/16 10:12 Dose: 25 mg Clopidogrel Bisulfate (Plavix) 75 mg PO QDAY [facility] Last Admin: 10/29/16 10:12 Dose: 75 mg Famotidine (Pepcid) 20 mg PO BID [facility] Last Admin: 10/29/16 11:35 Dose: 20 mg Gabapentin (Neurontin) 100 mg PO Q8HR [facility] Last Admin: 10/29/16 06:31 Dose: 100 mg Sodium Chloride (Nacl 0.9% 1000 Ml) 1,000 mls @ 100 mls/hr IV DIRECT [facility] Last Admin: 10/28/16 14:17 Dose: 100 mls/hr Levofloxacin/Dextrose (Levaquin 750mg/150ml) 150 mls @ 100 mls/hr IV Q48H [facility] PRN Reason: Protocol Insulin Aspart (Novolog) 0 units SUB-Q Q6HR [facility] PRN Reason: Protocol Last Admin: 10/29/16 11:35 Dose: Not Given Insulin Human Isoph/Insulin Regular (Novolin 70/30) 22 unit SUB-Q BIDDIAB [facility] Last Admin: 10/29/16 08:27 Dose: 22 unit Metoclopramide HCl (Reglan) 10 mg IV Q6H PRN PRN Reason: Nausea And Vomiting Oxycodone/Acetaminophen (Percocet 5/325) 1 tab PO Q6HR PRN PRN Reason: Pain Last Admin: 10/28/16 21:00 Dose: 1 tab Simple Syrup (Simple Syrup) 15 ml FEEDTUBE PRN PRN PRN Reason: Hypoglycemia Simple Syrup (Simple Syrup) 30 ml FEEDTUBE PRN PRN PRN Reason: Hypoglycemia Simvastatin (Zocor) 40 mg PO QHS [facility] Last Admin: 10/28/16 20:59 Dose: 40 mg Sodium Bicarbonate (Sodium Bicarbonate) 325 mg FEEDTUBE PRN PRN PRN Reason: For Clogged Feeding Tube Review of Systems Constitutional: fatigue, weakness, no fever, no chills Ears, nose, mouth and throat: no nasal congestion, no nasal discharge, no sinus pressure Cardiovascular: shortness of breath, dyspnea on exertion, no chest pain, no palpitations Respiratory: shortness of breath, dyspnea on exertion, no congestion, no wheezing Gastrointestinal: no abdominal pain, no nausea, no vomiting, no diarrhea Genitourinary Male: no dysuria, no hematuria Musculoskeletal: no neck stiffness, no neck pain, no myalgias Integumentary: no rash, no pruritis Neurological: no parathesias, no numbness, no tingling, no headaches Endocrine: no cold intolerance, no heat intolerance Hematologic/Lymphatic: no easy bruising, no easy bleeding Allergic/Immunologic: no urticaria, no wheezing Physical Examination Vital Signs Temp Pulse Resp BP Pulse Ox 97.2 F L 101 H 16 122/88 100 10/26/16 13:05 10/26/16 13:05 10/26/16 13:05 10/26/16 13:05 10/26/16 13:05 General appearance: no acute distress HEENT: Positive: Normocephaly, Mucus Membranes Moist Neck: Positive: neck supple, trachea midline Cardiac: Positive: Reg Rate and Rhythm, S1/S2 Lungs: Positive: clear to auscultation Neuro: Positive: Other (left hemiparesis) Abdomen: Positive: Soft, Active Bowel Sounds. Negative: Tender Skin: Positive: Clear, Rash Extremities: Present: normal. Absent: edema Results 10/29/16 06:54 10/29/16 06:54 CBC 10/29/16 Range/Units 06:54 WBC 7.6 (4.5-11.0) K/mm3 RBC 4.72 (3.65-5.03) M/mm3 Hgb 12.7 (11.8-15.2) gm/dl Hct 38.2 D (35.5-45.6) % Plt Count 210 (140-440) K/mm3 Comprehensive Metabolic Panel 10/29/16 Range/Units 06:54 Carbon Dioxide 25 (22-30) mmol/L BUN 24 H (9-20) mg/dL Creatinine 2.0 H (0.8-1.5) mg/dL Glucose 176 H (75-100) mg/dL Calcium 9.2 (8.4-10.2) mg/dL - Imaging and Cardiology EKG: image reviewed EKG interpretations - EKG Sinus rhythms and dysrhythmias: sinus rhythm Chamber hypertrophy or enlargement: left atrial enlargement, left ventricular hypertro Myocardial infarction: inferior GA (old age inde Assessment and Plan Dehydration/weakness clinically improving Chronic systolic heart failure-->currently euvolemic Echo 02/2016: EF 20-25% continue coreg Ischemic cardiomyopathy s/p AICD CAD s/p CABG continue ASA, statin, coreg Hypertension Diabetes Chronic kidney disease Hx. of CVA (10/2016) with residual left sided weakness continue ASA, Plavix, statin No evidence of atrial fibrillation noted. Agree with current regimen. Will follow. The patient has been seen in conjunction with Dr. Shultz who agrees with the assessment and plan of care. Thank you Dr. Last for allowing us to participate in the care of this patient.
--- NOTE | 2016-10-29 16:43 | Event Note ---
Date: 10/29/16 consult received, pt off the floor at the time of visit. Noted plans for possible rehab transfer. Will f/u at later time/AM.
[2016-10-29] MEDS: ZOCOR PO SCH (22:33)
[2016-10-30] MEDS: NOVOLOG SUB-Q SCH ×4 (00:20→17:14)
[2016-10-30] MEDS: NACL 0.9% 1000 ML 1,000 ML IV SCH (04:15)
[2016-10-30] MEDS: NEURONTIN PO SCH ×4 (06:52→23:11)
--- NOTE | 2016-10-30 09:56 | Discharge Summary ---
Providers - Providers Date of Admission: 10/26/16 15:55 Date of discharge: 10/30/16 Attending physician: MAURY NIELSON MD 10/26/16 19:32 Consult to Dietitian/Nutrition [CONS] Routine Physician Instructions: Reason For Exam: Reason for Consult: Write/Manage Tube Feeding Speech Therapy Evaluation and Treat [CONS] Routine Reason For Exam: swallow eval; recent CVA 10/27/16 10:55 Consult to Dietitian/Nutrition [CONS] Routine Physician Instructions: Reason For Exam: Reason for Consult: tube feed 10/27/16 12:54 Consult to Case Management [CONS] Routine Services Needed at Discharge: Home Health Services Notified:: COPY GIVEN TO CM 10/27/16 18:40 Physical Therapy Evaluation and Treat [CONS] Routine Comment: Reason For Exam: weakness 10/29/16 12:27 Consult to Physician [CONS] Routine Consulting Provider: DEBBIE ALLAN Reason For Exam: Adjust PEG tube Place consult to:: Leander Allan MD/ aydin Notified:: office Phone number called:: Was contact made?: Yes If yes, spoke with:: avel Evans called:: 12:44 10/29/16 12:52 Consult to Physician [CONS] Routine Consulting Provider: TRENT MENJIVAR Reason For Exam: ?afib, pt known to Dr. Tiara Montano consult to:: Dr. Menjivar/ roderick Notified:: over head paged Phone number called:: Was contact made?: No If yes, spoke with:: omar Evans called:: 13:28 Comment:: over head paged Primary care physician: TRANSITIONS MANAGER Hospitalization Reason for admission: dehydration Condition: Stable Hospital course: Patient is a 55-year-old man with a history of insulin-dependent diabetes mellitus, atrial fibrillation, hypertension, CVA and left-sided hemiparesis and PEG tube but still eats by mouth who was sent here from home due to anorexia with dehydration and weakness. On admission GI saw the patient for adjustment of a PEG tube and was noted to be in place with no bloating no residual. Patient doing well at this point and currently awaiting placement. She was seen by cardiology with recommendation of continued conservative management. Initial discharge to home was held due to no good support representative at home as patient's spouse was also admitted in the hospital. Unfortunately today the [facility] denied the request for rehabilitation musculoskeletal medicine facility admission. Patient understands this and is able to be gotten home with home health Discharge Diagnosis 1. Acute kidney injury on chronic kidney disease, 2. Dysphagia 3. 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 Atrial fibrillation on aspirin 5. Type 2 diabetes mellitus 6. Chronic systolic heart failure 7. Ischemic cardiomyopathy s/p AICD 8. CAD s/p CABG 9. Productive cough Disposition: DC/TX SNF [facility] CERT Time spent for discharge: 35 mins Core Measure Documentation - Palliative Care Palliative Care/ Comfort Measures: Not Applicable - Core Measures Any of the following diagnoses?: none - VTE Discharge Requirements Deep Vein Thrombosis/Pulmonary Embolism Present on Admission: No Exam - Physical Exam Narrative exam: VITAL SIGNS: Reviewed. GENERAL: The patient appeared well nourished and normally developed. Vital signs as documented. HEAD: No signs of head trauma. EYES: Pupils are equal. Extraocular motions intact. EARS: Hearing grossly intact. MOUTH: Oropharynx is normal. NECK: No adenopathy, no JVD. CHEST: Chest with clear breath sounds bilaterally. No wheezes, rales, or rhonchi. CARDIAC: Regular rate and rhythm. S1 and S2, without murmurs, gallops, or rubs. VASCULAR: No Edema. Peripheral pulses normal and equal in all extremities. ABDOMEN: Soft, PEG tube in place without detectable tenderness. No sign of distention. No rebound or guarding, and no masses palpated. Bowel Sounds normal. MUSCULOSKELETAL: Good range of motion of all major joints. Extremities without clubbing, cyanosis or edema. NEUROLOGIC EXAM: Alert and oriented x 3. No focal sensory or strength deficits. Speech normal. Follows commands. PSYCHIATRIC: Mood normal. SKIN: Age-appropriate wrinkle some blemishes PEG site is clean and dry. - Constitutional Vitals: Temp Pulse Resp BP Pulse Ox 97.8 F 75 18 130/92 100 10/30/16 08:00 10/30/16 08:00 10/30/16 08:00 10/30/16 08:00 10/30/16 08:00 Plan Activity: advance as tolerated, fall precautions Diet: low salt, per dietitian instruction, other Special Instructions: record daily BP diary, record blood sugar diary Follow up with: PRIMARY MD NOÉ [Primary Care Provider] - 3-5 Days Prescriptions: Levofloxacin [Levaquin] 750 mg PO QDAY #7 tablet Famotidine [Pepcid] 20 mg PO BID #60 tablet oxyCODONE /ACETAMINOPHEN [Percocet 5/325 mg] 1 tab PO Q6HR PRN #20 tablet PRN Reason: Pain
[2016-10-30] MEDS: LEVAQUIN 750MG/150ML 150 ML IV SCH (10:19)
[2016-10-30] MEDS: COREG PO SCH ×2 (10:19→23:09)
[2016-10-30] MEDS: BABY ASPIRIN PO SCH (10:19)
[2016-10-30] MEDS: PEPCID PO SCH ×2 (10:19→23:09)
[2016-10-30] MEDS: PLAVIX PO SCH (10:20)
[2016-10-30] MEDS: PERCOCET 5/325 PO PRN (10:20)
--- NOTE | 2016-10-30 12:02 | Progress Note ---
Assessment and Plan Dehydration/weakness clinically improving Chronic systolic heart failure-->currently euvolemic Echo 02/2016: EF 20-25% continue coreg Ischemic cardiomyopathy s/p AICD CAD s/p CABG continue ASA, statin, coreg Hypertension Diabetes Chronic kidney disease Hx. of CVA (10/2016) with residual left sided weakness continue ASA, Plavix, statin Stable cardiac status. Continue current management. The patient has been seen in conjunction with Dr. Shultz who agrees with the assessment and plan of care. Subjective Date of service: 10/30/16 Principal diagnosis: dehydration Interval history: The patient is resting comfortably in bed. No new complaints. Objective Last Vital Signs Temp 97.8 F 10/30/16 08:00 Pulse 75 10/30/16 08:00 Resp 18 10/30/16 08:00 BP 130/92 10/30/16 08:00 Pulse Ox 100 10/30/16 08:00 - Physical Examination General: No Apparent Distress HEENT: Positive: Normocephaly, Mucus Membranes Moist Neck: Positive: neck supple, trachea midline Cardiac: Positive: Reg Rate and Rhythm, S1/S2 Lungs: Positive: clear to auscultation Neuro: Positive: Other (left hemiparesis) Abdomen: Positive: Soft, Active Bowel Sounds. Negative: Tender Skin: Positive: Clear. Negative: Rash Extremities: Present: normal. Absent: edema - Imaging and Cardiology EKG: image reviewed Echo: report reviewed - EKG Sinus rhythms and dysrhythmias: sinus rhythm Chamber hypertrophy or enlargement: left atrial enlargement, left ventricular hypertro Myocardial infarction: inferior [place] (old age inde
--- NOTE | 2016-10-30 16:21 | Gastroenterology Consultation ---
History of Present Illness - Reason for Consult Consult date: 10/30/16 PEG tube evaluation Requesting physician: HALIMA LAST - History of Present Illness Mr riley is a 55 yo male with h/o CVA with PEG tube placement by outside physician (in [place] per pt on October 09) presents with dehydration and GONZALEZ. Pt reports pain at PEG tube site. Tolerating tube feeds without n/v or change in bowel habits. PEG tube appears to be placed via push PEG technique given appearance of external bumper and pins adjacent to skin. Denies draining from peg tube site, erythema, or abd distention. Past History Past Medical History: CAD, hypertension, hyperlipidemia, other (cva) Past Surgical History: CABG, Other (PEG; defibrillator) Social history: full code. denies: smoking, alcohol abuse, prescription drug abuse, IV drug use Family history: hypertension Medications and Allergies Allergies Allergy/AdvReac Type Severity Reaction Status Date / Time Penicillins Allergy confusion Verified 05/25/16 21:10 Home Medications Medication Instructions Recorded Confirmed Last Taken Type Aspirin [Aspirin BABY CHEW TAB] 81 mg PO QDAY #30 tab.chew 05/25/16 10/26/16 Unknown Rx Carvedilol [Coreg] 25 mg PO BID #60 tablet 05/25/16 10/26/16 Unknown Rx Clopidogrel [Plavix] 75 mg PO QDAY #30 tablet 05/25/16 10/26/16 Unknown Rx Gabapentin [Neurontin] 100 mg PO Q8HR #90 capsule 05/25/16 10/26/16 Unknown Rx Insulin NPH/Regular [NovoLIN 70/30] 22 unit SUB-Q BIDDIAB #1 units 05/25/16 Unknown Rx Simvastatin [Zocor TAB] 40 mg PO QHS #30 tablet 05/25/16 10/26/16 Unknown Rx Famotidine [Pepcid] 20 mg PO BID #60 tablet 10/30/16 Unknown Rx Levofloxacin [Levaquin] 750 mg PO QDAY #7 tablet 10/30/16 Unknown Rx Lipase/Protease/Amylase [Pancreaze 1 each FEEDTUBE PRN PRN #1 capsule 10/30/[address] 10,500 Unit] Simple Syrup 15 ml FEEDTUBE PRN PRN #1 oral.liqd 10/30/16 Unknown Rx Simple Syrup 30 ml FEEDTUBE PRN PRN #1 oral.liqd 10/30/16 Unknown Rx oxyCODONE /ACETAMINOPHEN [Percocet 1 tab PO Q6HR PRN #20 tablet 10/30/16 Unknown Rx 5/325 mg] Active Meds: Active Medications Acetaminophen (Tylenol) 650 mg PO Q4H PRN PRN Reason: Pain MILD(1-3)/Fever >100.5/DAVIS Lipase/Protease/Amylase ([address] Dr 10,500 Unit) 1 each FEEDTUBE PRN PRN PRN Reason: For Clogged Feeding Tube Aspirin (Baby Aspirin) 81 mg PO QDAY PENDING SALE TO [facility] Last Admin: 10/30/16 10:19 Dose: 81 mg Carvedilol (Coreg) 25 mg PO BID PENDING SALE TO [facility] Last Admin: 10/30/16 10:19 Dose: 25 mg Clopidogrel Bisulfate (Plavix) 75 mg PO QDAY PENDING SALE TO [facility] Last Admin: 10/30/16 10:20 Dose: 75 mg Famotidine (Pepcid) 20 mg PO BID PENDING SALE TO [facility] Last Admin: 10/30/16 10:19 Dose: 20 mg Gabapentin (Neurontin) 100 mg PO Q8HR PENDING SALE TO [facility] Last Admin: 10/30/16 15:02 Dose: 100 mg Sodium Chloride (Nacl 0.9% 1000 Ml) 1,000 mls @ 100 mls/hr IV DIRECT PENDING SALE TO [facility] Last Admin: 10/30/16 04:15 Dose: 100 mls/hr Levofloxacin/Dextrose (Levaquin 750mg/150ml) 150 mls @ 100 mls/hr IV Q24HR NASH PRN Reason: Protocol Last Admin: 10/30/16 10:19 Dose: 100 mls/hr Insulin Aspart (Novolog) 0 units SUB-Q Q6HR NASH PRN Reason: Protocol Last Admin: 10/30/16 13:49 Dose: Not Given Insulin Human Isoph/Insulin Regular (Novolin 70/30) 22 unit SUB-Q BIDDIAB PENDING SALE TO [facility] Last Admin: 10/30/16 08:25 Dose: 22 unit Metoclopramide HCl (Reglan) 10 mg IV Q6H PRN PRN Reason: Nausea And Vomiting Oxycodone/Acetaminophen (Percocet 5/325) 1 tab PO Q6HR PRN PRN Reason: Pain Last Admin: 10/30/16 10:20 Dose: 1 tab Simple Syrup (Simple Syrup) 15 ml FEEDTUBE PRN PRN PRN Reason: Hypoglycemia Simple Syrup (Simple Syrup) 30 ml FEEDTUBE PRN PRN PRN Reason: Hypoglycemia Simvastatin (Zocor) 40 mg PO QHS NASH Last Admin: 10/29/16 22:33 Dose: 40 mg Sodium Bicarbonate (Sodium Bicarbonate) 325 mg FEEDTUBE PRN PRN PRN Reason: For Clogged Feeding Tube Review of Systems - Review of Systems All systems: negative Constitutional: weakness Gastrointestinal: abdominal pain Neurological: weakness, motor disturbance Exam - Constitutional Vital Signs: Temp Pulse Resp BP Pulse Ox 98.4 F 75 18 123/81 100 10/30/16 12:00 10/30/16 12:00 10/30/16 12:00 10/30/16 12:00 10/30/16 12:00 General appearance: no acute distress - EENT Eyes: PERRL, EOM intact ENT: hearing intact - Neck Neck: supple - Respiratory Respiratory effort: normal Respiratory: bilateral: CTA - Cardiovascular Rhythm: regular Heart Sounds: Present: S1 & S2 Extremities: No edema - Gastrointestinal General gastrointestinal: Present: soft, non-distended, normal bowel sounds, other (PEG tube site c/d/i, no erythema or drainage, mild tenderness to palpation) - Integumentary Integumentary: Present: clear, dry - Neurologic Neurological: alert and oriented x3 - Psychiatric Psychiatric: appropriate mood/affect - Labs CBC & Chem 7: 10/29/16 06:54 10/29/16 06:54 Lab Results: Laboratory Results - last 24 hr 10/29/16 10/29/16 10/29/16 11:33 17:18 17:54 POC Glucose 111 H 53 L 71 10/30/16 10/30/16 10/30/16 00:11 06:53 11:54 POC Glucose 116 H 173 H 174 H Assessment and Plan 55 yo male with h/o CVA and PEG tube presents with GONZALEZ/dehydration and complaints around peg tube site. PEG tube placed by outside physician. Appears to have been done by push peg technique given external appearance. Tolerating tube feeds, and peg tube site appears c/d/i. non distended abdomen with bs. Pt should f/u with physician who placed PEG tube if pain does not improve or other concerning signs. No further recommendations at this time, please call with questions.
--- NOTE | 2016-10-30 22:13 | Progress Note ---
Assessment and Plan Assessment and plan: Patient is a 55-year-old man with a history of insulin-dependent diabetes mellitus, atrial fibrillation, hypertension, CVA and left-sided hemiparesis and PEG tube but still eats by mouth who was sent here from home due to anorexia with dehydration and weakness. On admission GI saw the patient for adjustment of a PEG tube and was noted to be in place with no bloating no residual. Patient doing well at this point and currently awaiting placement. Charles by cardiology with recommendation of continued conservative management. 1. Acute knee injury on chronic kidney disease, resolving. likely vasomotor nephropathy present on admission due to dehydration: Continue IV hydration, continue to monitor 2. Dysphagia: Speech evaluation. noted 3. 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 Atrial fibrillation on aspirin only, coreg, statin, plavix. unsure as to why apteint is not on anticoagulation. Cardiology input noted. 5. Type 2 diabetes mellitus on insulin, chronic worsening: Adjust insulin 6. Chronic systolic heart failure: Stable, Echo 02/2016: EF 20-25%,continue coreg 7. Ischemic cardiomyopathy s/p AICD 8. CAD s/p CABG continue ASA, statin, coreg 9. Productive cough-B chest x-ray unremarkable discontinue antibiotics at this point History Interval history: Patient seen and examined this morning in no acute distress, PEG tube is in place Denies any chest pain, nausea, vomiting, diarrhea. Reports continued regurgitation of mucus substance which is chronic No fever noted blood pressure controlled No adverse events reported to me by nursing staff Hospitalist Physical - Physical exam Narrative exam: VITAL SIGNS: Reviewed. GENERAL: The patient appeared well nourished and normally developed. Vital signs as documented. HEAD: No signs of head trauma. EYES: Pupils are equal. Extraocular motions intact. EARS: Hearing grossly intact. MOUTH: Oropharynx is normal. NECK: No adenopathy, no JVD. CHEST: Chest with clear breath sounds bilaterally. No wheezes, rales, or rhonchi. CARDIAC: Regular rate and rhythm. S1 and S2, without murmurs, gallops, or rubs. VASCULAR: No Edema. Peripheral pulses normal and equal in all extremities. ABDOMEN: Soft, PEG tube in place without detectable tenderness. No sign of distention. No rebound or guarding, and no masses palpated. Bowel Sounds normal. MUSCULOSKELETAL: Good range of motion of all major joints. Extremities without clubbing, cyanosis or edema. NEUROLOGIC EXAM: Alert and oriented x 3. No focal sensory or strength deficits. Speech normal. Follows commands. PSYCHIATRIC: Mood normal. SKIN: Age-appropriate wrinkle some blemishes PEG site is clean and dry. - Constitutional Vitals: Temp Pulse Resp BP Pulse Ox 98.3 F 69 18 113/80 98 10/30/16 17:50 10/30/16 17:50 10/30/16 20:33 10/30/16 17:50 10/30/16 17:50 General appearance: Present: no acute distress Results - Labs CBC & Chem 7: 10/29/16 06:54 10/29/16 06:54 Labs: Laboratory Last Values WBC 7.6 K/mm3 (4.5-11.0) 10/29/16 06:54 RBC 4.72 M/mm3 (3.65-5.03) 10/29/16 06:54 Hgb 12.7 gm/dl (11.8-15.2) 10/29/16 06:54 Hct 38.2 % (35.5-45.6) D 10/29/16 06:54 MCV 81 fl (84-94) L 10/29/16 06:54 MCH 27 pg (28-32) L 10/29/16 06:54 MCHC 33 % (32-34) 10/29/16 06:54 RDW 14.2 % (13.2-15.2) 10/29/16 06:54 Plt Count 210 K/mm3 (140-440) 10/29/16 06:54 Lymph % (Auto) 19.8 % (13.4-35.0) 10/26/16 13:54 [place] % (Auto) 8.1 % (0.0-7.3) H 10/26/16 13:54 Eos % (Auto) 1.9 % (0.0-4.3) 10/26/16 13:54 Baso % (Auto) 0.9 % (0.0-1.8) 10/26/16 13:54 Lymph # 2.2 K/mm3 (1.2-5.4) 10/26/16 13:54 [place] # 0.9 K/mm3 (0.0-0.8) H 10/26/16 13:54 Eos # 0.2 K/mm3 (0.0-0.4) 10/26/16 13:54 Baso # 0.1 K/mm3 (0.0-0.1) 10/26/16 13:54 Seg Neutrophils % 69.3 % (40.0-70.0) 10/26/16 13:54 Seg Neutrophils # 7.6 K/mm3 (1.8-7.7) 10/26/16 13:54 PT 13.2 Sec. (12.2-14.9) 10/26/16 13:54 INR 1.01 (0.87-1.13) 10/26/16 13:54 APTT 24.7 Sec. (24.2-36.6) 10/26/16 13:54 Sodium 135 mmol/L (137-145) L 10/28/16 07:55 Potassium 4.0 mmol/L (3.6-5.0) 10/28/16 07:55 Chloride 97.6 mmol/L (98-107) L 10/28/16 07:55 Carbon Dioxide 25 mmol/L (22-30) 10/29/16 06:54 Anion Gap 15 mmol/L 10/28/16 07:55 BUN 24 mg/dL (9-20) H 10/29/16 06:54 Creatinine 2.0 mg/dL (0.8-1.5) H 10/29/16 06:54 Estimated GFR 42 ml/min 10/29/16 06:54 BUN/Creatinine Ratio 12.00 % 10/29/16 06:54 Glucose 176 mg/dL (75-100) H 10/29/16 06:54 POC Glucose 101 (70-105) 10/30/16 17:01 Lactic Acid 2.1 mmol/L (0.7-2.0) H* 10/26/16 15:37 Calcium 9.2 mg/dL (8.4-10.2) 10/29/16 06:54 Magnesium 2.1 mg/dL (1.7-2.3) 10/26/16 13:54 Total Bilirubin 0.6 mg/dL (0.1-1.2) 10/26/16 13:54 AST 9 units/L (5-40) 10/26/16 13:54 ALT 12 units/L (7-56) 10/26/16 13:54 Alkaline Phosphatase 88 units/L (35-129) 10/26/16 13:54 Total Protein 7.0 g/dL (6.3-8.2) 10/26/16 13:54 Albumin 3.9 g/dL (3.9-5) 10/26/16 13:54 Albumin/Globulin Ratio 1.3 % 10/26/16 13:54 TSH 1.570 mlU/mL (0.270-4.200) 10/26/16 13:54 Urine Color Yellow (Yellow) 10/26/16 15:17 Urine Turbidity Clear (Clear) 10/26/16 15: Urine pH 6.0 (5.0-7.0) 10/26/16 15:17 Ur Specific [place] 1.023 (1.003-1.030) 10/26/16 15:17 Urine Protein >500 mg/dL (Negative) 10/26/16 15:17 Urine Glucose (UA) >=500 mg/dL (Negative) 10/26/16 15:17 Urine Ketones Tr mg/dL (Negative) 10/26/16 15:17 Urine Blood Neg (Negative) 10/26/16 15:17 Urine Nitrite Neg (Negative) 10/26/16 15:17 Urine Bilirubin Neg (Negative) 10/26/16 15:17 Urine Urobilinogen < 2.0 mg/dL (<2.0) 10/26/16 15:17 Ur Leukocyte Esterase Neg (Negative) 10/26/16 15:17 Urine WBC (Auto) < 1.0 /HPF (0.0-6.0) 10/26/16 15:17 Urine RBC (Auto) 1.0 /HPF (0.0-6.0) 10/26/16 15:17 U Epithel Cells (Auto) < 1.0 /HPF (0-13.0) 10/26/16 15:17 Urine Bacteria (Auto) 1+ /HPF (Negative) 10/26/16 15:17 Urine Mucus Few /HPF 10/26/16 15:17 - Imaging and Cardiology Chest x-ray: image reviewed (no acute pathology on my personal review)
[2016-10-30] MEDS: ZOCOR PO SCH (23:09)
[2016-10-31] MEDS: NOVOLOG SUB-Q SCH ×4 (00:21→17:24)
[2016-10-31] MEDS: NEURONTIN PO SCH ×3 (06:19→21:52)
[2016-10-31] MEDS: BABY ASPIRIN PO SCH (10:06)
[2016-10-31] MEDS: COREG PO SCH ×2 (10:06→21:53)
[2016-10-31] MEDS: PEPCID PO SCH ×2 (10:06→21:53)
[2016-10-31] MEDS: LEVAQUIN 750MG/150ML 150 ML IV SCH (10:06)
[2016-10-31] MEDS: PLAVIX PO SCH (10:06)
--- NOTE | 2016-10-31 12:51 | Progress Note ---
Assessment and Plan Assessment and plan: Patient is a 55-year-old man with a history of insulin-dependent diabetes mellitus, atrial fibrillation, hypertension, CVA and left-sided hemiparesis and PEG tube but still eats by mouth who was sent here from home due to anorexia with dehydration and weakness. On admission GI saw the patient for adjustment of a PEG tube and was noted to be in place with no bloating no residual. Patient doing well at this point and currently awaiting placement. Charles by cardiology with recommendation of continued conservative management. 1. Acute knee injury on chronic kidney disease, at baseline 2.0 likely vasomotor nephropathy present on admission due to dehydration: discontinue IVf since patient is tolerating tube feeds 2. Dysphagia: Speech evaluation. noted 3. 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 Atrial fibrillation on aspirin only, coreg, statin, plavix. unsure as to why apteint is not on anticoagulation. Cardiology input noted. 5. Type 2 diabetes mellitus on insulin, chronic worsening: Adjust insulin 6. Chronic systolic heart failure: Stable, Echo 02/2016: EF 20-25%,continue coreg 7. Ischemic cardiomyopathy s/p AICD 8. CAD s/p CABG continue ASA, statin, coreg 9. Productive cough-B chest x-ray unremarkable discontinue antibiotics at this point 10. Awaiting placement. History Interval history: Patient seen and examined this morning in no acute distress, PEG tube is in place Denies any chest pain, nausea, vomiting, diarrhea. Reports continued regurgitation of mucus substance much less today which is chronic No fever noted blood pressure controlled No adverse events reported to me by nursing staff Hospitalist Physical - Physical exam Narrative exam: VITAL SIGNS: Reviewed. GENERAL: The patient appeared well nourished and normally developed. Vital signs as documented. HEAD: No signs of head trauma. EYES: Pupils are equal. Extraocular motions intact. EARS: Hearing grossly intact. MOUTH: Oropharynx is normal. NECK: No adenopathy, no JVD. CHEST: Chest with clear breath sounds bilaterally. No wheezes, rales, or rhonchi. CARDIAC: Regular rate and rhythm. S1 and S2, without murmurs, gallops, or rubs. VASCULAR: No Edema. Peripheral pulses normal and equal in all extremities. ABDOMEN: Soft, PEG tube in place without detectable tenderness. No sign of distention. No rebound or guarding, and no masses palpated. Bowel Sounds normal. MUSCULOSKELETAL: Good range of motion of all major joints. Extremities without clubbing, cyanosis or edema. NEUROLOGIC EXAM: Alert and oriented x 3. No focal sensory or strength deficits. Speech normal. Follows commands. PSYCHIATRIC: Mood normal. SKIN: Age-appropriate wrinkle some blemishes PEG site is clean and dry. - Constitutional Vitals: Temp Pulse Resp BP Pulse Ox 98.4 F 68 18 128/93 98 10/31/16 08:00 10/31/16 08:00 10/31/16 08:00 10/31/16 08:00 10/31/16 08:00 General appearance: Present: no acute distress Results - Labs CBC & Chem 7: 10/29/16 06:54 10/29/16 06:54 Labs: Laboratory Last Values WBC 7.6 K/mm3 (4.5-11.0) 10/29/16 06:54 RBC 4.72 M/mm3 (3.65-5.03) 10/29/16 06:54 Hgb 12.7 gm/dl (11.8-15.2) 10/29/16 06:54 Hct 38.2 % (35.5-45.6) D 10/29/16 06:54 MCV 81 fl (84-94) L 10/29/16 06:54 MCH 27 pg (28-32) L 10/29/16 06:54 MCHC 33 % (32-34) 10/29/16 06:54 RDW 14.2 % (13.2-15.2) 10/29/16 06:54 Plt Count 210 K/mm3 (140-440) 10/29/16 06:54 Lymph % (Auto) 19.8 % (13.4-35.0) 10/26/16 13:54 [place] % (Auto) 8.1 % (0.0-7.3) H 10/26/16 13:54 Eos % (Auto) 1.9 % (0.0-4.3) 10/26/16 13:54 Baso % (Auto) 0.9 % (0.0-1.8) 10/26/16 13:54 Lymph # 2.2 K/mm3 (1.2-5.4) 10/26/16 13:54 [place] # 0.9 K/mm3 (0.0-0.8) H 10/26/16 13:54 Eos # 0.2 K/mm3 (0.0-0.4) 10/26/16 13:54 Baso # 0.1 K/mm3 (0.0-0.1) 10/26/16 13:54 Seg Neutrophils % 69.3 % (40.0-70.0) 10/26/16 13:54 Seg Neutrophils # 7.6 K/mm3 (1.8-7.7) 10/26/16 13:54 PT 13.2 Sec. (12.2-14.9) 10/26/16 13:54 INR 1.01 (0.87-1.13) 10/26/16 13:54 APTT 24.7 Sec. (24.2-36.6) 10/26/16 13:54 Sodium 135 mmol/L (137-145) L 10/28/16 07:55 Potassium 4.0 mmol/L (3.6-5.0) 10/28/16 07:55 Chloride 97.6 mmol/L (98-107) L 10/28/16 07:55 Carbon Dioxide 25 mmol/L (22-30) 10/29/16 06:54 Anion Gap 15 mmol/L 10/28/16 07:55 BUN 24 mg/dL (9-20) H 10/29/16 06:54 Creatinine 2.0 mg/dL (0.8-1.5) H 10/29/16 06:54 Estimated GFR 42 ml/min 10/29/16 06:54 BUN/Creatinine Ratio 12.00 % 10/29/16 06:54 Glucose 176 mg/dL (75-100) H 10/29/16 06:54 POC Glucose 192 (70-105) H 10/31/16 06:14 Lactic Acid 2.1 mmol/L (0.7-2.0) H* 10/26/16 15:37 Calcium 9.2 mg/dL (8.4-10.2) 10/29/16 06:54 Magnesium 2.1 mg/dL (1.7-2.3) 10/26/16 13:54 Total Bilirubin 0.6 mg/dL (0.1-1.2) 10/26/16 13:54 AST 9 units/L (5-40) 10/26/16 13:54 ALT 12 units/L (7-56) 10/26/16 13:54 Alkaline Phosphatase 88 units/L (35-129) 10/26/16 13:54 Total Protein 7.0 g/dL (6.3-8.2) 10/26/16 13:54 Albumin 3.9 g/dL (3.9-5) 10/26/16 13:54 Albumin/Globulin Ratio 1.3 % 10/26/16 13:54 TSH 1.570 mlU/mL (0.270-4.200) 10/26/16 13:54 Urine Color Yellow (Yellow) 10/26/16 15:17 Urine Turbidity Clear (Clear) 10/26/16 15: Urine pH 6.0 (5.0-7.0) 10/26/16 15:17 Ur Specific [place] 1.023 (1.003-1.030) 10/26/16 15:17 Urine Protein >500 mg/dL (Negative) 10/26/16 15:17 Urine Glucose (UA) >=500 mg/dL (Negative) 10/26/16 15:17 Urine Ketones Tr mg/dL (Negative) 10/26/16 15:17 Urine Blood Neg (Negative) 10/26/16 15:17 Urine Nitrite Neg (Negative) 10/26/16 15:17 Urine Bilirubin Neg (Negative) 10/26/16 15:17 Urine Urobilinogen < 2.0 mg/dL (<2.0) 10/26/16 15:17 Ur Leukocyte Esterase Neg (Negative) 10/26/16 15:17 Urine WBC (Auto) < 1.0 /HPF (0.0-6.0) 10/26/16 15:17 Urine RBC (Auto) 1.0 /HPF (0.0-6.0) 10/26/16 15:17 U Epithel Cells (Auto) < 1.0 /HPF (0-13.0) 10/26/16 15:17 Urine Bacteria (Auto) 1+ /HPF (Negative) 10/26/16 15:17 Urine Mucus Few /HPF 10/26/16 15:17
[2016-10-31] MEDS: ZOCOR PO SCH (21:53)
[2016-11-01] MEDS: NOVOLOG SUB-Q SCH ×4 (00:30→17:16)
[2016-11-01] MEDS: NEURONTIN PO SCH ×3 (05:30→21:32)
[2016-11-01] MEDS: COREG PO SCH ×2 (10:10→21:32)
[2016-11-01] MEDS: PEPCID PO SCH ×2 (10:11→21:33)
[2016-11-01] MEDS: PLAVIX PO SCH (10:11)
[2016-11-01] MEDS: BABY ASPIRIN PO SCH (10:11)
[2016-11-01] MEDS: NACL 0.9% 1000 ML 1,000 ML IV SCH (12:20)
--- NOTE | 2016-11-01 16:56 | Progress Note ---
Assessment and Plan Assessment and plan: Patient is a 55-year-old man with a history of insulin-dependent diabetes mellitus, atrial fibrillation, hypertension, CVA and left-sided hemiparesis and PEG tube but still eats by mouth who was sent here from home due to anorexia with dehydration and weakness. On admission GI saw the patient for adjustment of a PEG tube and was noted to be in place with no bloating no residual. Patient doing well at this point and currently awaiting placement. Charles by cardiology with recommendation of continued conservative management. Planned for discharge today but Home tube feeding was not arranged. Patient will be discharged in am. 1. Acute knee injury on chronic kidney disease, at baseline 2.0 likely vasomotor nephropathy present on admission due to dehydration: discontinue IVf since patient is tolerating tube feeds 2. Dysphagia: Speech evaluation. noted 3. 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 Atrial fibrillation on aspirin only, coreg, statin, plavix. unsure as to why apteint is not on anticoagulation. Cardiology input noted. 5. Type 2 diabetes mellitus on insulin, chronic worsening: Adjust insulin 6. Chronic systolic heart failure: Stable, Echo 02/2016: EF 20-25%,continue coreg 7. Ischemic cardiomyopathy s/p AICD 8. CAD s/p CABG continue ASA, statin, coreg 9. Productive cough-B chest x-ray unremarkable discontinue antibiotics at this point 10. Awaiting placement. History Interval history: Patient seen and examined this morning in no acute distress, PEG tube is in place Denies any chest pain, nausea, vomiting, diarrhea. Reports continued regurgitation of mucus substance much less today which is chronic No fever noted blood pressure controlled No adverse events reported to me by nursing staff Hospitalist Physical - Physical exam Narrative exam: VITAL SIGNS: Reviewed. GENERAL: The patient appeared well nourished and normally developed. Vital signs as documented. HEAD: No signs of head trauma. EYES: Pupils are equal. Extraocular motions intact. EARS: Hearing grossly intact. MOUTH: Oropharynx is normal. NECK: No adenopathy, no JVD. CHEST: Chest with clear breath sounds bilaterally. No wheezes, rales, or rhonchi. CARDIAC: Regular rate and rhythm. S1 and S2, without murmurs, gallops, or rubs. VASCULAR: No Edema. Peripheral pulses normal and equal in all extremities. ABDOMEN: Soft, PEG tube in place without detectable tenderness. No sign of distention. No rebound or guarding, and no masses palpated. Bowel Sounds normal. MUSCULOSKELETAL: Good range of motion of all major joints. Extremities without clubbing, cyanosis or edema. NEUROLOGIC EXAM: Alert and oriented x 3. No focal sensory or strength deficits. Speech normal. Follows commands. PSYCHIATRIC: Mood normal. SKIN: Age-appropriate wrinkle some blemishes PEG site is clean and dry. - Constitutional Vitals: Temp Pulse Resp BP Pulse Ox 97.6 F 72 20 122/84 100 11/01/16 08:00 11/01/16 16:00 11/01/16 16:00 11/01/16 16:00 11/01/16 16:00 General appearance: Present: no acute distress Results - Labs CBC & Chem 7: 10/29/16 06:54 10/29/16 06:54 Labs: Laboratory Last Values WBC 7.6 K/mm3 (4.5-11.0) 10/29/16 06:54 RBC 4.72 M/mm3 (3.65-5.03) 10/29/16 06:54 Hgb 12.7 gm/dl (11.8-15.2) 10/29/16 06:54 Hct 38.2 % (35.5-45.6) D 10/29/16 06:54 MCV 81 fl (84-94) L 10/29/16 06:54 MCH 27 pg (28-32) L 10/29/16 06:54 MCHC 33 % (32-34) 10/29/16 06:54 RDW 14.2 % (13.2-15.2) 10/29/16 06:54 Plt Count 210 K/mm3 (140-440) 10/29/16 06:54 Lymph % (Auto) 19.8 % (13.4-35.0) 10/26/16 13:54 [place] % (Auto) 8.1 % (0.0-7.3) H 10/26/16 13:54 Eos % (Auto) 1.9 % (0.0-4.3) 10/26/16 13:54 Baso % (Auto) 0.9 % (0.0-1.8) 10/26/16 13:54 Lymph # 2.2 K/mm3 (1.2-5.4) 10/26/16 13:54 [place] # 0.9 K/mm3 (0.0-0.8) H 10/26/16 13:54 Eos # 0.2 K/mm3 (0.0-0.4) 10/26/16 13:54 Baso # 0.1 K/mm3 (0.0-0.1) 10/26/16 13:54 Seg Neutrophils % 69.3 % (40.0-70.0) 10/26/16 13:54 Seg Neutrophils # 7.6 K/mm3 (1.8-7.7) 10/26/16 13:54 PT 13.2 Sec. (12.2-14.9) 10/26/16 13:54 INR 1.01 (0.87-1.13) 10/26/16 13:54 APTT 24.7 Sec. (24.2-36.6) 10/26/16 13:54 Sodium 135 mmol/L (137-145) L 10/28/16 07:55 Potassium 4.0 mmol/L (3.6-5.0) 10/28/16 07:55 Chloride 97.6 mmol/L (98-107) L 10/28/16 07:55 Carbon Dioxide 25 mmol/L (22-30) 10/29/16 06:54 Anion Gap 15 mmol/L 10/28/16 07:55 BUN 24 mg/dL (9-20) H 10/29/16 06:54 Creatinine 2.0 mg/dL (0.8-1.5) H 10/29/16 06:54 Estimated GFR 42 ml/min 10/29/16 06:54 BUN/Creatinine Ratio 12.00 % 10/29/16 06:54 Glucose 176 mg/dL (75-100) H 10/29/16 06:54 POC Glucose 147 (70-105) H 11/01/16 12:37 Lactic Acid 2.1 mmol/L (0.7-2.0) H* 10/26/16 15:37 Calcium 9.2 mg/dL (8.4-10.2) 10/29/16 06:54 Magnesium 2.1 mg/dL (1.7-2.3) 10/26/16 13:54 Total Bilirubin 0.6 mg/dL (0.1-1.2) 10/26/16 13:54 AST 9 units/L (5-40) 10/26/16 13:54 ALT 12 units/L (7-56) 10/26/16 13:54 Alkaline Phosphatase 88 units/L (35-129) 10/26/16 13:54 Total Protein 7.0 g/dL (6.3-8.2) 10/26/16 13:54 Albumin 3.9 g/dL (3.9-5) 10/26/16 13:54 Albumin/Globulin Ratio 1.3 % 10/26/16 13:54 TSH 1.570 mlU/mL (0.270-4.200) 10/26/16 13:54 Urine Color Yellow (Yellow) 10/26/16 15:17 Urine Turbidity Clear (Clear) 10/26/16 15:17 Urine pH 6.0 (5.0-7.0) 10/26/16 15:17 Ur Specific [place] 1.023 (1.003-1.030) 10/26/16 15:17 Urine Protein >500 mg/dL (Negative) 10/26/16 15:17 Urine Glucose (UA) >=500 mg/dL (Negative) 10/26/16 15:17 Urine Ketones Tr mg/dL (Negative) 10/26/16 15:17 Urine Blood Neg (Negative) 10/26/16 15:17 Urine Nitrite Neg (Negative) 10/26/16 15:17 Urine Bilirubin Neg (Negative) 10/26/16 15:17 Urine Urobilinogen < 2.0 mg/dL (<2.0) 10/26/16 15:17 Ur Leukocyte Esterase Neg (Negative) 10/26/16 15:17 Urine WBC (Auto) < 1.0 /HPF (0.0-6.0) 10/26/16 15:17 Urine RBC (Auto) 1.0 /HPF (0.0-6.0) 10/26/16 15:17 U Epithel Cells (Auto) < 1.0 /HPF (0-13.0) 10/26/16 15:17 Urine Bacteria (Auto) 1+ /HPF (Negative) 10/26/16 15:17 Urine Mucus Few /HPF 10/26/16 15:17
[2016-11-01] MEDS: ZOCOR PO SCH (21:33)
[2016-11-02] MEDS: NOVOLOG SUB-Q SCH ×3 (00:30→12:17)
[2016-11-02] MEDS: NEURONTIN PO SCH (06:52)
[2016-11-02] MEDS: PEPCID PO SCH (09:18)
[2016-11-02] MEDS: PLAVIX PO SCH (09:18)
[2016-11-02] MEDS: BABY ASPIRIN PO SCH (09:18)
[2016-11-02] MEDS: COREG PO SCH (09:18)
--- NOTE | 2016-11-02 12:50 | Discharge Summary ---
Providers - Providers Date of Admission: 10/26/16 15:55 Date of discharge: 11/02/16 Attending physician: MAURY NIELSON MD 10/26/16 19:32 Consult to Dietitian/Nutrition [CONS] Routine Physician Instructions: Reason For Exam: Reason for Consult: Write/Manage Tube Feeding Speech Therapy Evaluation and Treat [CONS] Routine Reason For Exam: swallow eval; recent CVA 10/27/16 10:55 Consult to Dietitian/Nutrition [CONS] Routine Physician Instructions: Reason For Exam: Reason for Consult: tube feed 10/27/16 12:54 Consult to Case Management [CONS] Routine Services Needed at Discharge: Home Health Services Notified:: COPY GIVEN TO CM 10/27/16 18:40 Physical Therapy Evaluation and Treat [CONS] Routine Comment: Reason For Exam: weakness 10/29/16 12:27 Consult to Physician [CONS] Routine Consulting Provider: DEBBIE ALLAN Reason For Exam: Adjust PEG tube Place consult to:: Leander Allan MD/ aydin Notified:: office Phone number called:: Was contact made?: Yes If yes, spoke with:: avel Time called:: 12:44 Primary care physician: [employer] Hospitalization Reason for admission: dehydration Condition: Stable Hospital course: Patient is a 55-year-old man with a history of insulin-dependent diabetes mellitus, atrial fibrillation, hypertension, CVA and left-sided hemiparesis and PEG tube but still eats by mouth who was sent here from home due to anorexia with dehydration and weakness. On admission GI saw the patient for adjustment of a PEG tube and was noted to be in place with no bloating no residual. Patient doing well at this point and currently awaiting placement. She was seen by cardiology with recommendation of continued conservative management. Initial discharge to home was held due to no good child support specialist at home as patient's spouse was also admitted in the hospital. Unfortunately today the insurance company denied the request for rehabilitation [facility]. Patient's available discharged home with home health patient understands this and wishes to be discharged home. New diet is being arranged for the patient. Discharge Diagnosis 1. Acute kidney injury on chronic kidney disease secondary to dehydration, 2. Dysphagia 3. 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 Atrial fibrillation on aspirin 5. Type 2 diabetes mellitus 6. Chronic systolic heart failure 7. Ischemic cardiomyopathy s/p AICD 8. CAD s/p CABG 9. Productive cough Disposition: DISCHARGED TO HOME OR SELFCARE Time spent for discharge: 35 mins Core Measure Documentation - Palliative Care Palliative Care/ Comfort Measures: Not Applicable - Core Measures Any of the following diagnoses?: none - VTE Discharge Requirements Deep Vein Thrombosis/Pulmonary Embolism Present on Admission: No Exam - Physical Exam Narrative exam: VITAL SIGNS: Reviewed. GENERAL: The patient appeared well nourished and normally developed. Vital signs as documented. HEAD: No signs of head trauma. EYES: Pupils are equal. Extraocular motions intact. EARS: Hearing grossly intact. MOUTH: Oropharynx is normal. NECK: No adenopathy, no JVD. CHEST: Chest with clear breath sounds bilaterally. No wheezes, rales, or rhonchi. CARDIAC: Regular rate and rhythm. S1 and S2, without murmurs, gallops, or rubs. VASCULAR: No Edema. Peripheral pulses normal and equal in all extremities. ABDOMEN: Soft, PEG tube in place without detectable tenderness. No sign of distention. No rebound or guarding, and no masses palpated. Bowel Sounds normal. MUSCULOSKELETAL: Good range of motion of all major joints. Extremities without clubbing, cyanosis or edema. NEUROLOGIC EXAM: Alert and oriented x 3. No focal sensory or strength deficits. Speech normal. Follows commands. PSYCHIATRIC: Mood normal. SKIN: Age-appropriate wrinkle some blemishes PEG site is clean and dry. - Constitutional Vitals: Temp Pulse Resp BP Pulse Ox 98.4 F 76 16 137/73 99 11/02/16 08:10 11/02/16 08:10 11/02/16 08:10 11/02/16 09:18 11/02/16 08:10 Plan Activity: advance as tolerated, fall precautions Diet: per dietitian instruction Follow up with: PRIMARY CARE, [Primary Care Provider] - 3-5 Days Prescriptions: Levofloxacin [Levaquin] 750 mg PO QDAY #7 tablet Famotidine [Pepcid] 20 mg PO BID #60 tablet oxyCODONE /ACETAMINOPHEN [Percocet 5/325 mg] 1 tab PO Q6HR PRN #20 tablet PRN Reason: Pain
[2016-11-02 14:09] VITALS: BP 106/66
== END 2016-11-02 15:19 | disposition home health service (06) | DRG 683 ==
LOC: ED 12:15 → 3A 15:55
PROVIDERS: ADMIT Hospitalist; ATTEND Internal Medicine
DX: N17.0 Acute kidney failure with tubular necrosis (principal); I50.22 Chronic systolic (congestive) heart failure; I13.0 Hypertensive heart and chronic kidney disease with heart failure and stage 1 through stage 4 chronic kidney disease, or unspecified chronic kidney disease; I69.954 Hemiplegia and hemiparesis following unspecified cerebrovascular disease affecting left non-dominant side; E86.0 Dehydration; R13.10 Dysphagia, unspecified; I48.2 Chronic atrial fibrillation; R26.9 Unspecified abnormalities of gait and mobility; E10.65 Type 1 diabetes mellitus with hyperglycemia; I25.10 Atherosclerotic heart disease of native coronary artery without angina pectoris; N18.3 Chronic kidney disease, stage 3 (moderate); I25.5 Ischemic cardiomyopathy; Z95.1 Presence of aortocoronary bypass graft; Z95.5 Presence of coronary angioplasty implant and graft; Z79.82 Long term (current) use of aspirin; Z79.899 Other long term (current) drug therapy; Z79.4 Long term (current) use of insulin; Z93.1 Gastrostomy status; Z82.49 Family history of ischemic heart disease and other diseases of the circulatory system; Z88.0 Allergy status to penicillin; I69.991 Dysphagia following unspecified cerebrovascular disease; Z95.810 Presence of automatic (implantable) cardiac defibrillator
CPT/HCPCS: 36415; 71010; 71020; 74230; 76770; 80048; 80053; 81001; 82140; 82962; 83735; 84443; 85025; 85027; 85610; 85730; 93005; 93010; G8978-GP; G8979-GP; J1650; J1815; J1956; J7030

== ENCOUNTER 2016-11-17 22:37 | Emergency (ER) | payer MEDICARE ==
[2016-11-17 22:51] VITALS: BP 127/94
[2016-11-17 23:13] LABS: Basophils % (Auto) 0.7 % (0.0-1.8); Eosinophils % (Auto) 4.8 % (0.0-4.3); Hematocrit 40.7 % (35.5-45.6); Hemoglobin 13.1 gm/dl (11.8-15.2); Mean Corpuscular HGB Conc 32 % (32-34); Mean Corpuscular Hemoglobin 27 pg (28-32); Mean Corpuscular Volume 83 fl (84-94); Platelet Count 294 K/mm3 (140-440); Red Blood Count 4.93 M/mm3 (3.65-5.03); Red Cell Distribution Width 14.4 % (13.2-15.2)
[2016-11-17 23:35] LABS: Albumin 4.2 g/dL (3.9-5); Albumin/Globulin Ratio 1.4 %; BUN/Creatinine Ratio 10.38; Bilirubin,Total 0.4 mg/dL (0.1-1.2); Calcium 10.1 mg/dL (8.4-10.2); Chloride 96.9 mmol/L (98-107); Potassium 4.8 mmol/L (3.6-5.0); Total Protein 7.2 g/dL (6.3-8.2)
== END 2016-11-18 03:40 | disposition left against medical advice (07) ==
LOC: ED 22:37
DX: K94.29 Other complications of gastrostomy (principal); Z53.21 Procedure and treatment not carried out due to patient leaving prior to being seen by health care provider
CPT/HCPCS: 36415; 80053; 83690; 85025

== ENCOUNTER 2016-11-18 10:19 | Inpatient (IN) | payer MEDICARE ==
--- NOTE | 2016-11-18 10:36 | Emergency Department Report ---
ED Neuro Deficit HPI - General Stated Complaint: POSS STROKE Time Seen by Provider: 11/18/16 10:27 Source: patient, EMS, old records reviewed Mode of arrival: Stretcher Limitations: No Limitations - History of Present Illness Initial Comments: 56-year-old male with a past medical history of CABG x 2, afib, DM, pacemaker, multiple strokes in the past presents to the hospital, complaints of new neurologic deficit in leaking from PEG tube. Patient states that he has had 4 previous strokes with residual deficits that includes chronic dysphagia requiring PEG tube and right-sided weakness requiring use of a cane with ambulation. Patient woke up about 9:15a because his PEG tube was leaking all over his feet. He states he notices left side with tingling and he could not ambulate and had to crawl around his home. Patient also has a new speech deficit and has difficulty communicating with mildly slurred speech, new left- sided facial droop, and new left-sided arm and leg weakness. Pt complains of pain around PEG site. Patient reports that he has a low cardiac ejection fraction which results in embolic strokes but denies anticoagulation use. Patient takes aspirin 325 mg daily but has been out for the last 3 days. Patient states he presented here 2 days ago to be evaluated for abdominal pain but left prior to being evaluated by M.D. due to prolonged wait times. Patient continues to have abdominal pain denies nausea vomiting. Patient has chronic diarrhea since starting PEG feedings after his last stroke in October reports last bowel movement 4 days ago. His previous medical record reviewed. Patient had a stroke in early October and was treated at another hospital in [place]. He presented here in the October with dehydration secondary to dysphagia and had a PEG tube placed at that time. Per medical record patient had left sided weakness since the stroke in October which contradicts patient's story today. It does appear that this left sided weakness might have worsened per patient's account. LAst mri on record in 2010 - Related Data Home Medications: Previous Rx's Medication Instructions Recorded Last Taken Type Aspirin [Aspirin BABY CHEW TAB] 81 mg PO QDAY #30 tab.chew 05/25/16 Unknown Rx Carvedilol [Coreg] 25 mg PO BID #60 tablet 05/25/16 Unknown Rx Clopidogrel [Plavix] 75 mg PO QDAY #30 tablet 05/25/16 Unknown Rx Gabapentin [Neurontin] 100 mg PO Q8HR #90 capsule 05/25/16 Unknown Rx Insulin NPH/Regular [NovoLIN 70/30] 22 unit SUB-Q BIDDIAB #1 units 05/25/16 Unknown Rx Simvastatin [Zocor TAB] 40 mg PO QHS #30 tablet 05/25/16 Unknown Rx Famotidine [Pepcid] 20 mg PO BID #60 tablet 10/30/16 Unknown Rx Levofloxacin [Levaquin] 750 mg PO QDAY #7 tablet 10/30/16 Unknown Rx Lipase/Protease/Amylase [Pancreaze 1 each FEEDTUBE PRN PRN #1 capsule 10/30/[address] 10,500 Unit] Simple Syrup 15 ml FEEDTUBE PRN PRN #1 oral.liqd 10/30/16 Unknown Rx Simple Syrup 30 ml FEEDTUBE PRN PRN #1 oral.liqd 10/30/16 Unknown Rx oxyCODONE /ACETAMINOPHEN [Percocet 1 tab PO Q6HR PRN #20 tablet 10/30/16 Unknown Rx 5/325 mg] Allergies/Adverse Reactions: Allergies Allergy/AdvReac Type Severity Reaction Status Date / Time Penicillins Allergy confusion Verified 05/25/16 21:10 ED Review of Systems ROS: Stated complaint: POSS STROKE Other details as noted in HPI Comment: All other systems reviewed and negative Other: Constitutional: No fevers chills Eyes: No eye pain visual changes ENT: No ear pain or throat pain Neck: Denies pain Respiratory: Denies cough wheezing shortness of breath Cardiovascular: Denies chest pain, palpitations, syncope GI: Denies nausea, vomiting, diarrhea : Denies dysuria Musculoskeletal: Denies back pain, joint swelling Skin: Denies rash, lesions, erythema Neurologic: Denies headache Psychiatric: Denies suicidal ideation, hallucinations ED Past Medical Hx - Past Medical History Hx Hypertension: Yes Hx CVA: Yes Hx Heart Attack/AMI: Yes Hx Congestive Heart Failure: Yes Hx Diabetes: Yes Hx Renal Disease: Yes (CHRONIC KIDNEY DISEASE) Hx Seizures: Yes Hx Asthma: Yes Hx COPD: Yes Hx HIV: No Additional medical history: AFIB - Surgical History Hx Coronary Stent: Yes Hx Open Heart Surgery: Yes (Double bypass) Hx Pacemaker: No Hx Internal Defibrillator: Yes Additional Surgical History: PEG tube placement - Social History Smoking Status: Never Smoker Substance Use Type: None - Medications Home Medications: Home Medications Medication Instructions Recorded Confirmed Last Taken Type Aspirin [Aspirin BABY CHEW TAB] 81 mg PO QDAY #30 tab.chew 05/25/16 11/18/16 Unknown Rx Carvedilol [Coreg] 25 mg PO BID #60 tablet 05/25/16 11/18/16 Unknown Rx Clopidogrel [Plavix] 75 mg PO QDAY #30 tablet 05/25/16 11/18/16 Unknown Rx Gabapentin [Neurontin] 100 mg PO Q8HR #90 capsule 05/25/16 11/18/16 Unknown Rx Insulin NPH/Regular [NovoLIN 70/30] 22 unit SUB-Q BIDDIAB #1 units 05/25/1609/22 Unknown Rx Simvastatin [Zocor TAB] 40 mg PO QHS #30 tablet 05/25/16 11/18/16 Unknown Rx Famotidine [Pepcid] 20 mg PO BID #60 tablet 10/30/16 11/18/16 Unknown Rx Levofloxacin [Levaquin] 750 mg PO QDAY #7 tablet 10/30/16 11/18/16 Unknown Rx Lipase/Protease/Amylase [Pancreaze 1 each FEEDTUBE PRN PRN #1 capsule 10/30/16 11/18/[address] 10,500 Unit] Simple Syrup 15 ml FEEDTUBE PRN PRN #1 oral.liqd 10/30/16 11/18/16 Unknown Rx Simple Syrup 30 ml FEEDTUBE PRN PRN #1 oral.liqd 10/30/16 11/18/16 Unknown Rx oxyCODONE /ACETAMINOPHEN [Percocet 1 tab PO Q6HR PRN #20 tablet 10/30/16 Unknown Rx 5/325 mg] ED Neuro Physical Exam - General Suspected Stroke: Yes - NIHSS Assessment Interval: Baseline 1a. Level of Consciousness: alert 1b. LOC Questions: answers correctly 1c. LOC Commands: performs tasks correctly 2. Best Gaze: normal 3. Visual: no visual loss 4. Facial Palsy: complete paralysis 5b. Motor Arm Right: no drift 5a. Motor Arm Left: drift 6a. Motor Leg Left: some gravity effort 6b. Motor Leg Right: no drift 7. Limb Ataxia: absent 8. Sensory: mild/moderate sensory loss 9. Best Language: no aphasia 10. Dysarthria: mild/moderate dysarthria 11. Extinction/Inattention: no abnormality Total Score: 8 Stroke Severity: Moderate Stroke - Other Other exam information: General: No limitations, patient is alert in no acute distress Head exam: Atraumatic, normocephalic Eyes exam: Normal appearance, pupils equal reactive to light, extraocular movements intact ENT: Moist mucous membrane, normal oropharynx Neck exam: Normal inspection, full range of motion, no meningismus nontender Respiratory exam: Clear to auscultation bilateral, no wheezes, rales, crackles, sternotomy scar Cardiovascular: Normal rate and rhythm, normal heart sounds Abdomen: Soft, PEG tube noted. Generalized abdominal tenderness Extremity: Full range of motion normal inspection no deformity Back: Normal Inspection, full range of motion, no tenderness Neurologic: Alert, oriented x3, cranial nerves intact, no motor or sensory deficit Psychiatric: normal affect, normal mood Skin: Warm, dry, intact ED Course Vital Signs 11/18/16 11/18/16 11/18/16 10:52 11:14 14:44 Temperature 98.3 F Pulse Rate 82 89 Respiratory 18 18 18 Rate Blood Pressure 113/79 Blood Pressure 107/69 [Left] O2 Sat by Pulse 98 98 99 Oximetry - Reevaluation(s) Reevaluation #1: 11/18/16 12:01 pt stable unchanged exam - Consultations Consultation #1: 11/18/16 10:30 case d/w Dr Alvarez, rec ct angio since pt is out of TPA window since onset unknown due to wake up stroke. 11/18/16 11:04 Dr Alvarez informed pt has had a kidney disease in low unlikely a candidate for CT angiogram. She recommends MRI and MRA. We'll contact Glenn to see if any additional intervention can be offered at this time. If contraindication MRI recommended repeat CT head 11/18/16 11:20 - Lab Data Result diagrams: 11/18/16 10:42 11/18/16 10:42 Lab Results 11/18/16 11/18/16 11/18/16 Range/Units 10:42 10:42 10:42 WBC 6.6 (4.5-11.0) K/mm3 RBC 4.94 (3.65-5.03) M/mm3 Hgb 13.1 (11.8-15.2) gm/dl Hct 40.3 (35.5-45.6) % MCV 82 L (84-94) fl MCH 27 L (28-32) pg MCHC 33 (32-34) % RDW 14.5 (13.2-15.2) % Plt Count 275 (140-440) K/mm3 Lymph % (Auto) 25.3 (13.4-35.0) % Whiteside % (Auto) 8.1 H (0.0-7.3) % Eos % (Auto) 6.2 H (0.0-4.3) % Baso % (Auto) 1.0 (0.0-1.8) % Lymph # 1.7 (1.2-5.4) K/mm3 Whiteside # 0.5 (0.0-0.8) K/mm3 Eos # 0.4 (0.0-0.4) K/mm3 Baso # 0.1 (0.0-0.1) K/mm3 Seg Neutrophils % 59.4 (40.0-70.0) % Seg Neutrophils # 3.9 (1.8-7.7) K/mm3 PT 12.8 (12.2-14.9) Sec. INR 0.97 (0.87-1.13) APTT 25.3 (24.2-36.6) Sec. Thrombin Time 16.9 (15.1-19.6) Sec. Sodium 142 D (137-145) mmol/L Potassium 4.8 (3.6-5.0) mmol/L Chloride 101.4 (98-107) mmol/L Carbon Dioxide 28 (22-30) mmol/L Anion Gap 17 mmol/L BUN 25 H (9-20) mg/dL Creatinine 2.5 H (0.8-1.5) mg/dL Estimated GFR 32 ml/min BUN/Creatinine Ratio 10.00 % Glucose 166 H (75-100) mg/dL Calcium 10.2 (8.4-10.2) mg/dL Total Bilirubin (0.1-1.2) mg/dL Direct Bilirubin (0-0.2) mg/dL AST (5-40) units/L ALT (7-56) units/L Alkaline Phosphatase (35-129) units/L Total Protein (6.3-8.2) g/dL Albumin (3.9-5) g/dL Albumin/Globulin Ratio % Lipase (13-60) units/L 11/18/16 Range/Units 10:42 WBC (4.5-11.0) K/mm3 RBC (3.65-5.03) M/mm3 Hgb (11.8-15.2) gm/dl Hct (35.5-45.6) % MCV (84-94) fl MCH (28-32) pg MCHC (32-34) % RDW (13.2-15.2) % Plt Count (140-440) K/mm3 Lymph % (Auto) (13.4-35.0) % Whiteside % (Auto) (0.0-7.3) % Eos % (Auto) (0.0-4.3) % Baso % (Auto) (0.0-1.8) % Lymph # (1.2-5.4) K/mm3 Whiteside # (0.0-0.8) K/mm3 Eos # (0.0-0.4) K/mm3 Baso # (0.0-0.1) K/mm3 Seg Neutrophils % (40.0-70.0) % Seg Neutrophils # (1.8-7.7) K/mm3 PT (12.2-14.9) Sec. INR (0.87-1.13) APTT (24.2-36.6) Sec. Thrombin Time (15.1-19.6) Sec. Sodium (137-145) mmol/L Potassium (3.6-5.0) mmol/L Chloride (98-107) mmol/L Carbon Dioxide (22-30) mmol/L Anion Gap mmol/L BUN (9-20) mg/dL Creatinine (0.8-1.5) mg/dL Estimated GFR ml/min BUN/Creatinine Ratio % Glucose (75-100) mg/dL Calcium (8.4-10.2) mg/dL Total Bilirubin 0.4 (0.1-1.2) mg/dL Direct Bilirubin < 0.2 (0-0.2) mg/dL AST 8 (5-40) units/L ALT 8 (7-56) units/L Alkaline Phosphatase 69 (35-129) units/L Total Protein 7.1 (6.3-8.2) g/dL Albumin 4.0 (3.9-5) g/dL Albumin/Globulin Ratio 1.3 % Lipase 29 (13-60) units/L - EKG Data -: EKG Interpreted by Me (sinus 89 anterolateral T-wave inversion) When compared to previous EKG there are: no significant change (compared to ) - Radiology Data Radiology results: report reviewed CT head noncontrast: Global cortical atrophy. Chronic bilateral frontal lobe and right pontine infarcts. No acute findings. CT abdomen and pelvis without contrast: No acute findings. Benign forcibly to right lower pole renal cyst. Small left kidney. - Medical Decision Making Patient has a history of stroke with left-sided weakness and has been noncompliant with anticoagulated status and other medication prescribed upon recent discharge which likely resulted in exacerbation of his pre-existing stroke symptoms - Differential Diagnosis TIA, CVA, hemorrhage, obstruction, appendicitis, abdominal pain nos - Thrombolytic Inclusion/Exclusion Thrombolytic Exclusion Criteria: Symptom Onset > 3 Hours Thrombolytic Contraindications: Stroke in Past 3 Months Critical Care Time: No Critical care attestation.: If time is entered above; I have spent that time in minutes in the direct care of this critically ill patient, excluding procedure time. ED Disposition Clinical Impression: CKD (chronic kidney disease) stage 3, GFR 30-59 ml/min, Left-sided weakness, Dysarthria, Type II diabetes mellitus, Noncompliance with medication regimen, Diabetes, Abdominal pain, Pain around PEG tube site CVA (cerebral vascular accident) Qualifiers: CVA mechanism: unspecified Qualified Code(s): I63.9 - Cerebral infarction, unspecified Disposition: OP ADMITTED IP TO THIS HOSP Is pt being admited?: Yes Does the pt Need Aspirin: Yes Condition: Stable Time of Disposition: 12:03 (Dr Sanches/hosp)
--- NOTE | 2016-11-18 10:46 | Cat Scan Report ---
CT HEAD WITHOUT CONTRAST: 11/18/16 10:34 CLINICAL: 98N-STROKE ALERT. TECHNIQUE: 5-mm and 2.5-mm noncontrast scans. COMPARISON:05/24/16 FINDINGS: The ventricles and sulci are large for age but unchanged compared to the prior exam.Bilateral frontal lobe encephalomalacia unchanged compared to the prior exam. A chronic right pontine lacunar infarct is more prominent than on the prior exam. No suspicious hypodensity. No mass or mass effect. No hemorrhage, edema or extra-axial collection. The sinuses are clear. Normal orbits and soft tissues. The calvarium and skull base are intact. IMPRESSION: Global cortical atrophy and chronic bilateral frontal lobe and right pontine infarcts. No evidence of acute infarct or hemorrhage. Verbal report was given to Dr. Horn in the emergency department on 11/18/16 at 10:40.. 98N-STROKE ALERT
[2016-11-18 10:54] LABS: Eosinophils % (Auto) 6.2 % (0.0-4.3); Hematocrit 40.3 % (35.5-45.6); Hemoglobin 13.1 gm/dl (11.8-15.2); Mean Corpuscular HGB Conc 33 % (32-34); Mean Corpuscular Hemoglobin 27 pg (28-32); Mean Corpuscular Volume 82 fl (84-94); Platelet Count 275 K/mm3 (140-440); Red Blood Count 4.94 M/mm3 (3.65-5.03); Red Cell Distribution Width 14.5 % (13.2-15.2); White Blood Count 6.6 K/mm3 (4.5-11.0)
[2016-11-18] MEDS ORDERED: ASPIRIN FEEDTUBE ONE (10:59)
[2016-11-18 11:01] LABS: Calcium 10.2 mg/dL (8.4-10.2); Chloride 101.4 mmol/L (98-107); Potassium 4.8 mmol/L (3.6-5.0)
[2016-11-18 11:03] LABS: INR 0.97 (0.87-1.13)
[2016-11-18 11:04] LABS: Partial Thromboplastin Time 25.3 Sec. (24.2-36.6)
[2016-11-18 11:26] LABS: Alanine Aminotransferase 8 units/L (7-56); Albumin/Globulin Ratio 1.3 %; Alkaline Phosphatase 69 units/L (35-129); Bilirubin,Total 0.4 mg/dL (0.1-1.2); Lipase 29 units/L (13-60); Total Protein 7.1 g/dL (6.3-8.2)
[2016-11-18 11:30] LABS: Bilirubin,Direct < 0.2 mg/dL (0-0.2)
--- NOTE | 2016-11-18 11:39 | Cat Scan Report ---
CT ABDOMEN AND PELVIS WITHOUT CONTRAST: 11/18/16 10:19:00 CLINICAL:Abdominal pain. TECHNIQUE: Volumetric acquisition and 1.25 millimeter scan reconstructions from the lung bases through the iliac crest. The study was performed without oral contrast. FINDINGS: Abdomen:Clear lung bases. Normal liver, bile ducts and gallbladder. Normal stomach with a PEG tube in normal position. Normal duodenum, pancreas and spleen. Normal adrenal glands. The renal collecting systems and ureters are nondilated. The right kidney measures 11.5 cm in length and the left kidney measures 8.2 cm in length. A 4 cm benign cyst of the lower pole of the right kidney. No renal mass or calculus. Normal aorta and inferior vena cava. Ectasia of the iliac arteries. No ascites and no pneumoperitoneum. The small bowel and colon are normal. The appendix is well imaged and normal. No mass or lymphadenopathy. Pelvis: Normal urinary bladder and rectum.Normal prostate and seminal vesicles. Normal sigmoid colon. No pelvic mass, lymphadenopathy or fluid. Bone windows demonstrate no bone lesions. Bilateral hip arthritis. IMPRESSION: 1. A benign 4 cm right lower pole renal cyst. 2. Small left kidney. 3. No explanation for abdominal pain.
--- NOTE | 2016-11-18 17:28 | History and Physical Report ---
History of Present Illness Date of examination: 11/18/16 Date of admission: 11/18/16 12:07 Chief complaint: L side weakness since AM History of present illness: 56-year-old male with a past medical history of CABG x 2, afib, DM, pacemaker, multiple strokes in the past presents to the hospital, complaints of new neurologic deficit and leaking from PEG tube. Patient states that he has had 4 previous strokes with residual deficits that includes chronic dysphagia requiring PEG tube and right-sided weakness requiring use of a cane with ambulation. Patient woke up about 9:15a because his PEG tube was leaking all over his feet. He states he notices left side with tingling and he could not ambulate and had to crawl around his home. Patient also has a new speech deficit and has difficulty communicating with mildly slurred speech, new left- sided facial droop, and new left-sided arm and leg weakness. Pt complains of pain around PEG site. Patient reports that he has a low cardiac ejection fraction which results in embolic strokes but denies anticoagulation use. Patient takes aspirin 325 mg daily and plavix 75 mg po qd but has been out for the last 3 days. Patient states he presented here 2 days ago to be evaluated for abdominal pain but left prior to being evaluated by M.D. due to prolonged wait times. Patient continues to have abdominal pain denies nausea vomiting. Patient has chronic diarrhea since starting PEG feedings after his last stroke in October reports last bowel movement 4 days ago. His previous medical record reviewed. Patient had a stroke in early October and was treated at another hospital in [place]. He presented here in the October with dehydration secondary to dysphagia and had a PEG tube placed at that time. Per medical record patient had left sided weakness since the stroke in October which contradicts patient's story today. It does appear that this left sided weakness might have worsened per patient's account. LAst mri on record in 2010 Past History Past Medical History: CAD, diabetes, GERD, heart failure, hypertension, hyperlipidemia, renal failure, stroke Past Surgical History: CABG (x2), Other (Defibrillator Peg tube placement pacemaker) Medications and Allergies Allergies Allergy/AdvReac Type Severity Reaction Status Date / Time Penicillins Allergy confusion Verified 05/25/16 21:10 Home Medications Medication Instructions Recorded Confirmed Last Taken Type Aspirin [Aspirin BABY CHEW TAB] 81 mg PO QDAY #30 tab.chew 05/25/16 11/18/16 Unknown Rx Carvedilol [Coreg] 25 mg PO BID #60 tablet 05/25/16 11/18/16 Unknown Rx Clopidogrel [Plavix] 75 mg PO QDAY #30 tablet 05/25/16 11/18/16 Unknown Rx Gabapentin [Neurontin] 100 mg PO Q8HR #90 capsule 05/25/16 11/18/16 Unknown Rx Insulin NPH/Regular [NovoLIN 70/30] 22 unit SUB-Q BIDDIAB #1 units 05/25/1609/22 Unknown Rx Simvastatin [Zocor TAB] 40 mg PO QHS #30 tablet 05/25/16 11/18/16 Unknown Rx Famotidine [Pepcid] 20 mg PO BID #60 tablet 10/30/16 11/18/16 Unknown Rx Levofloxacin [Levaquin] 750 mg PO QDAY #7 tablet 10/30/16 11/18/16 Unknown Rx Lipase/Protease/Amylase [Pancreaze 1 each FEEDTUBE PRN PRN #1 capsule 10/30/16 11/18/[address] 10,500 Unit] Simple Syrup 15 ml FEEDTUBE PRN PRN #1 oral.liqd 10/30/16 11/18/16 Unknown Rx Simple Syrup 30 ml FEEDTUBE PRN PRN #1 oral.liqd 10/30/16 11/18/16 Unknown Rx oxyCODONE /ACETAMINOPHEN [Percocet 1 tab PO Q6HR PRN #20 tablet 10/30/16 Unknown Rx 5/325 mg] Review of Systems All systems: negative Neurological: paralysis (L side weakness 3/5), tingling Exam - Constitutional Vitals: Temp Pulse Resp BP Pulse Ox 98.3 F 84 18 107/69 99 11/18/16 10:52 11/18/16 16:49 11/18/16 14:44 11/18/16 14:44 11/18/16 14:44 General appearance: Present: no acute distress, well-nourished - EENT Eyes: Present: PERRL ENT: hearing intact, clear oral mucosa, other (L facial palsy) - Neck Neck: Present: supple, normal ROM - Respiratory Respiratory effort: normal Respiratory: bilateral: CTA - Cardiovascular Heart Sounds: Present: S1 & S2. Absent: rub, click - Extremities Extremities: pulses symmetrical, No edema Peripheral Pulses: within normal limits - Abdominal General gastrointestinal: Present: soft, non-tender, non-distended, normal bowel sounds, other (Peg in place) Male genitourinary: Present: normal - Integumentary Integumentary: Present: clear, warm, dry - Musculoskeletal Musculoskeletal: strength equal bilaterally, left sided weakness - Psychiatric Psychiatric: appropriate mood/affect, intact judgment & insight - Neurologic Neurologic: CNII-XII intact, focal deficits (L side 3/5 weakness ), other ( Unable to walk) Results - Labs CBC & Chem 7: 11/18/16 10:42 11/18/16 10:42 Labs: Short CBC 11/18/16 Range/Units 10:42 WBC 6.6 (4.5-11.0) K/mm3 Hgb 13.1 (11.8-15.2) gm/dl Hct 40.3 (35.5-45.6) % Plt Count 275 (140-440) K/mm3 BMP 11/18/16 10:42 Sodium 142 D Potassium 4.8 Chloride 101.4 Carbon Dioxide 28 BUN 25 H Creatinine 2.5 H Glucose 166 H Calcium 10.2 Liver Function 11/18/16 Range/Units 10:42 Total Bilirubin 0.4 (0.1-1.2) mg/dL Direct Bilirubin < 0.2 (0-0.2) mg/dL AST 8 (5-40) units/L ALT 8 (7-56) units/L Alkaline Phosphatase 69 (35-129) units/L Albumin 4.0 (3.9-5) g/dL - Imaging and Cardiology EKG: report reviewed CT Scan - head: report reviewed (Bilateral frontal infarcts and Rt Pontine infarcts) Assessment and Plan - Patient Problems (1) CVA (cerebral vascular accident) Current Visit: Yes Status: Acute Qualifiers: CVA mechanism: occlusion Precerebral and cerebral artery: middle cerebral artery Laterality of affected vessel: L Qualified Code(s): I63.9 - Cerebral infarction, unspecified Plan to address problem: MRI MRA Carotid duplex scan and ECHO pending Rehab and neuro consult ordered (2) Left-sided weakness Current Visit: Yes Status: Acute Plan to address problem: PT for now and cont Plavix (3) CKD (chronic kidney disease) stage 3, GFR 30-59 ml/min Current Visit: Yes Status: Chronic Plan to address problem: Renal consult Dr Nichols (4) Pain around PEG tube site Current Visit: Yes Status: Acute Qualifiers: Encounter type: initial encounter Qualified Code(s): T85.848A - Pain due to other internal prosthetic devices, implants and grafts, initial encounter Plan to address problem: GI consulted (5) IDDM (insulin dependent diabetes mellitus) Current Visit: Yes Status: Chronic Plan to address problem: Cont insulin 70/30 bid and coverage (6) Hypertension Current Visit: No Status: Chronic Qualifiers: Hypertension type: essential hypertension Qualified Code(s): I10 - Essential (primary) hypertension Plan to address problem: Cont Coreg (7) Hyperlipidemia Current Visit: No Status: Chronic Qualifiers: Hyperlipidemia type: mixed hyperlipidemia Qualified Code(s): E78.2 - Mixed hyperlipidemia Plan to address problem: cont statins (8) DVT prophylaxis Current Visit: Yes Status: Acute Plan to address problem: On Lovenox
--- NOTE | 2016-11-18 23:12 | Admit Criteria Form ---
Admission Criteria Documentation: NEUROLOGY GRG Clinical Indications for Admission to Inpatient Care (Place ' X' for any and all applicable criteria): Hospital admission is needed for appropriate care of the patient because of ANY ONE of the following: [ ]I. New-onset or worsening altered mental status remaining after emergency or observation level care (as appropriate) (9)(10)(11) [ ]II. Severe EYEGLASS LENS GRINDER infections or inflammatory conditions, including ANY ONE of the following(1)(2)(3): [ ]a) Intracranial abscess [ ]b) Spinal abscess or myelitis [ ]c) Tuberculous or other nonbacterial, nonviral EYEGLASS LENS GRINDER infection(8) [ ]III. Encephalitis(1)(2)(3) [ ]IV. Status epilepticus or repetitive seizures not controlled with emergent treatment [A] (7)(8) [ ]V. Transient alteration in consciousness with high-risk etiology; examples include (12)(13): [ ]a) Cardiovascular source [ ]b) Cataplexy [ ]. Cerebral aneurysm requiring ANY ONE of the following(14): [ ]a) IV antihypertensives or vasoactive agents [ ]b) Sedation and analgesia for suspected leak [ ]c) Need for external ventricular drainage and cerebral perfusion pressure monitoring [ ]d) Emergent evaluation to determine need for surgical clipping or endovascular coiling by interventional radiology. If surgery is required ( Also use Craniotomy, Supratentorial, for Surgery of Bleeding Intracranial Aneurysm (for bleeding aneurysm) or Craniotomy, Supratentorial (for nonbleeding aneurysm) as appropriate. [ ]VII. Altered mental status that is severe or persistent(16) [ ]VIII New-onset severe neurologic findings requiring inpatient care; examples include: [ ]a) Papilledema [ ]b) Cerebral edema [ ]c) Mass effect on imaging [ X]IX. New-onset severe neurologic symptom requiring inpatient care indicated by ANY ONE of the following: [ ]a) Aphasia(15) [ ]b) Weakness (grade 3 or less) [ ]c) Paralysis (eg, hemiplegia) [ ]d) Spasticity(16) [ ]e) Ataxia(17) [ ]f) Amnesia(18) [ ]g) Involuntary movements(19) [ ]h) Vertigo [ X]i) Other severe neurologic symptom not treatable at alternative level of care (eg, observation care) [ ]X. Guillain-Haskins syndrome(20) [ ]XI. Myasthenia gravis crisis or inpatient monitoring need as indicated by ANY ONE of the following(21): [ ]a) Inadequate airway protection [ ]b) Respiratory insufficiency requiring intubation or inpatient. monitoring [ ]c) Progressive dysphagia with failure to thrive [ ]d) Intensive treatment (eg, course of plasmapheresis) with inadequate outpatient situation to monitor patients status [ ]XII. Multiple sclerosis or other acute demyelinating disease requiring inpatient care as indicated by ANY ONE of the following (22)(23): [ ]a) Acute severe deterioration requiring inpatient treatment (eg, IV steroids, plasmapheresis, close observation) [ ]b) Acute complication requiring inpatient care (eg, sepsis, severe decubitus, aspiration) [ ]XIII. Intracranial hypertension (eg, pseudotumor cerebri) requiring inpatient care (eg, acute visual loss, inadequate oral intake) (24) [ ]XIV.Parkinson disease requiring inpatient care (Also use Optimal Recovery Care Criteria or General Recovery Criteria as appropriate) indicated by ANY ONE of the following(25): [ ]a) Infection (eg, aspiration pneumonia) not treatable at alternative level of care [ ]b) Volume depletion not responsive to emergency and observation care treatment (as appropriate) [ ]c) Life-threatening agitation or psychotic behavior not treatable on emergency, observation care, or alternative level (eg, residential) basis [ ]d) Severe medication withdrawal effects (eg, freezing, neuroleptic malignant syndrome) not responsive to emergency and observation care treatment (as appropriate) [ ]e) Other severe manifestation not treatable at alternative level of care [ ]XV.Amyotrophic lateral sclerosis with inpatient care needs as indicated by ANY ONE of the following(26): [ ]a) Acute complications requiring inpatient care (Use Optimal Recovery Care Criteria or General Recovery Criteria as appropriate); examples include: [ ]i) Aspiration pneumonia [ ]ii) Sepsis [ ]b) Dehydration or hypovolemia (not responsive to emergency and observation care treatment as appropriate) AND artificial support desired [ ]c) Inadequate airway protection AND artificial support desired [ ]d) Severe ventilatory insufficiency AND artificial support desired [ ]XVI.Severe myopathy, neuropathy, or other neuromuscular disease as indicated by ANY ONE of the following: [ ]a) New-onset severe diffuse weakness (eg, strength 3/5 or less) [ ]b) Severe dysphagia [ ]c) Dyspnea at rest or with minimal exertion (new) [ ]d) Inadequate airway protection [ ]e) Inadequate ventilation as indicated by ANY ONE of the following : [ ]i) Partial pressure of carbon dioxide greater than 44 mm Hg (5.9 kPa) (new) [ ]ii) Reduced peak expiratory flow rate (new) [ ]iii) Vital capacity less than 50% of predicted ( less than 15 mL/kg) [ ]iv) Peak inspiratory force less negative than -30 cm H20 (-2942 Pa) [ ]XVII.Complications of congenital or degenerative disease (eg, infection, seizures, dehydration, injury) not responsive to emergency and observation care treatment (as appropriate ) [C](16)(29)(30) [ ]XVIII.Suspected or confirmed nerve or muscle toxic injury, including ANY ONE of the following: [ ]a) Rhabdomyolysis(31) [ ]b) Botulism(32) [ ]c) Other severe toxin-induced sign or symptom [ ]XIX. Neurologic trauma requiring inpatient treatment (medical) indicated by ANY ONE of the following(33)(34): [ ]a) Vital signs or neurologic signs more frequently than every 4 hours [ ]b) Hyperosmolar therapy [ ]c) Respiratory monitoring [ ]d) Intracranial pressure monitoring and treatment [ ]e) Stabilization and immobilization device placement (eg, braces, body jacket) [ ]f) Intubation & mechanical ventilation for airway protection or therapeutic hyperventilation [ ]g) Other treatment or monitoring needed that requires inpatient level of care [ ]XX.Complications of neurologic devices (eg, ventricular shunt, neurostimulator) requiring ANY ONE of the following(35)(36): [ ]a) IV antibiotics with monitoring while awaiting culture results [ ]b) Monitoring for hydrocephalus [ ]XXI Vasculitis with ANY ONE of the following(4)(5): [ ]a) Altered mental status [ ]b) Psychosis [ ]c) Seizures [ ]XXII. Neurology condition and ALL of the following: [ ]a) Symptom or finding for which emergency and observation care have failed or are not considered appropriate (Use General Criteria: Observation Care as appropriate) [ ]b) Presence of ANY ONE of the following: [ ]i) A General Admission Criteria [ ]ii A Pediatric General Admission Criteria The original [facility] content created by [facility] has been revised. The portions of the content which have been revised are identified through the use of italic text or in bold, and [facility] has neither reviewed nor approved the modified material. All other unmodified content is copyright [facility] Please see references footnoted in the original [facility] edition 2016 Admission Criteria Met: Yes
[2016-11-19] MEDS ORDERED: MORPHINE IV PRN (00:47)
[2016-11-19] MEDS ORDERED: PERCOCET 5/325 PO PRN (08:01)
[2016-11-19] MEDS ORDERED: PANCREAZE DR 10,500 UNIT FEEDTUBE PRN ×3 (08:01→11:25)
[2016-11-19] MEDS ORDERED: SIMPLE SYRUP FEEDTUBE PRN ×6 (08:01→11:25)
[2016-11-19] MEDS ORDERED: SODIUM CHLORIDE FLUSH SYRINGE 10 ML IV PRN (08:02)
[2016-11-19] MEDS ORDERED: SODIUM BICARBONATE FEEDTUBE PRN ×2 (08:33→11:25)
[2016-11-19] MEDS ORDERED: NEURONTIN PO SCH ×2 (09:00→16:30)
[2016-11-19] MEDS ORDERED: NACL 0.9% 1000 ML 1,000 ML IV SCH (09:00)
[2016-11-19] MEDS ORDERED: BABY ASPIRIN PO SCH (10:00)
[2016-11-19] MEDS ORDERED: PEPCID PO SCH (10:00)
[2016-11-19] MEDS ORDERED: PLAVIX PO SCH (10:00)
[2016-11-19] MEDS ORDERED: D50W (25GM) IV PRN (10:05)
--- NOTE | 2016-11-19 10:15 | Progress Note ---
Assessment and Plan 1. Acute on Chronic Systolic heart failure: Continue with diuretic, beta- arabella and TATI-I. 2. Diabetes Mellitus with hyperglycemia: High dose SSI, Accuchek qac/hs. 3. CVA with left hemiparesis: Continue with Plavix and statin. 4. DVT prophylaxis: SCD 5. GI Prophylaxis: Continue with Famotidine 20 mg qd. 6. GONZALEZ: IV fluids. Disposition: Discuss with social service worker about placement as patient has nowhere to go. Subjective Date of service: 11/19/16 Principal diagnosis: left sided weakness Interval history: un[place] blood sugar level b/c he has been out of his insulin for the pas 3 days. Worsening weakness on the left side Objective - Constitutional Vitals: Vital Signs - 12hr 11/19/16 11/19/16 11/19/16 00:57 01:15 01:45 Temperature 98.1 F Pulse Rate [ 89 Right] Respiratory 20 18 18 Rate Blood Pressure 135/95 [Right Arm] O2 Sat by Pulse 99 Oximetry 11/19/16 11/19/16 05:18 07:51 Temperature 98.1 F 98.3 F Pulse Rate [ 86 84 Right] Respiratory 20 20 Rate Blood Pressure 122/79 140/90 [Right Arm] O2 Sat by Pulse 99 99 Oximetry General appearance: Present: no acute distress, well-nourished - EENT Eyes: PERRL, EOM intact ENT: hearing intact, clear oral mucosa Ears: bilateral: normal - Neck Neck: supple, normal ROM - Respiratory Respiratory effort: normal Respiratory: bilateral: CTA - Cardiovascular Rhythm: regular Heart Sounds: Present: S1 & S2. Absent: gallop, rub Extremities: pulses intact, No edema, normal color, Full ROM - Gastrointestinal General gastrointestinal: Present: soft, non-tender, non-distended, normal bowel sounds, other (PEG tube in place) - Integumentary Integumentary: clear, warm, dry - Musculoskeletal Musculoskeletal: 1, strength equal bilaterally - Neurologic Neurologic: moves all extremities - Psychiatric Psychiatric: memory intact, appropriate mood/affect, intact judgment & insight - Labs CBC & Chem 7: 11/18/16 10:42 11/18/16 10:42 Labs: Abnormal lab results 11/18/16 11/19/16 Range/Units 22:06 07:42 POC Glucose 117 H 122 H (70-105)
[2016-11-19] MEDS: COREG PO SCH ×2 (10:27→21:37)
[2016-11-19] MEDS ORDERED: FLUARIX QUAD 2016-2017(36 MOS+) IM ONE (12:00)
[2016-11-19] MEDS: NOVOLOG SUB-Q SCH ×2 (12:49→17:56)
--- NOTE | 2016-11-19 14:21 | Consultation ---
History of Present Illness - Reason for Consult Consult date: 11/19/16 Evaluate for Acute IRU - History of Present Illness 56 y.o. male admitted with complaints of PEG tube dysfunction and abdominal pain ; also with ?new left sided weakness, dysarthria, difficulty ambulating. CT Brain negative for new CVA. CT abdomen/pelvis also negative. On today, pt reports that since his last discharge in October, he has been unable to care for himself and has become debilitated. Consult requested for post-acute placement recommendations. Past History Past Medical History: CAD, diabetes, GERD, heart failure, hypertension, hyperlipidemia, renal failure, stroke Past Surgical History: CABG (x2), Other (Defibrillator Peg tube placement pacemaker) Social history: (reports not living at home since last discharge). denies: smoking, alcohol abuse Family history: CAD Medications and Allergies Allergies Allergy/AdvReac Type Severity Reaction Status Date / Time Penicillins Allergy confusion Verified 05/25/16 21:10 Home Medications Medication Instructions Recorded Confirmed Last Taken Type Aspirin [Aspirin BABY CHEW TAB] 81 mg PO QDAY #30 tab.chew 05/25/16 11/18/16 Unknown Rx Carvedilol [Coreg] 25 mg PO BID #60 tablet 05/25/16 11/18/16 Unknown Rx Clopidogrel [Plavix] 75 mg PO QDAY #30 tablet 05/25/16 11/18/16 Unknown Rx Gabapentin [Neurontin] 100 mg PO Q8HR #90 capsule 05/25/16 11/18/16 Unknown Rx Insulin NPH/Regular [NovoLIN 70/30] 22 unit SUB-Q BIDDIAB #1 units 05/25/1609/22 Unknown Rx Simvastatin [Zocor TAB] 40 mg PO QHS #30 tablet 05/25/16 11/18/16 Unknown Rx Famotidine [Pepcid] 20 mg PO BID #60 tablet 10/30/16 11/18/16 Unknown Rx Levofloxacin [Levaquin] 750 mg PO QDAY #7 tablet 10/30/16 11/18/16 Unknown Rx Lipase/Protease/Amylase [Pancreaze 1 each FEEDTUBE PRN PRN #1 capsule 10/30/16 11/18/[address] 10,500 Unit] Simple Syrup 15 ml FEEDTUBE PRN PRN #1 oral.liqd 10/30/16 11/18/16 Unknown Rx Simple Syrup 30 ml FEEDTUBE PRN PRN #1 oral.liqd 10/30/16 11/18/16 Unknown Rx oxyCODONE /ACETAMINOPHEN [Percocet 1 tab PO Q6HR PRN #20 tablet 10/30/16 Unknown Rx 5/325 mg] Active Meds: Active Medications Lipase/Protease/Amylase ([place] Dr 10,500 Unit) 1 each FEEDTUBE PRN PRN PRN Reason: For Clogged Feeding Tube Aspirin (Baby Aspirin) 81 mg PO QDAY [facility] Last Admin: 11/19/16 10:27 Dose: 81 mg Carvedilol (Coreg) 25 mg PO BID [facility] Last Admin: 11/19/16 10:27 Dose: 25 mg Clopidogrel Bisulfate (Plavix) 75 mg PO QDAY [facility] Last Admin: 11/19/16 10:27 Dose: 75 mg Dextrose (D50w (25gm)) 50 ml IV PRN PRN PRN Reason: Hypoglycemia Famotidine (Pepcid) 20 mg PO DAILY [facility] Gabapentin (Neurontin) 100 mg PO Q8H [facility] Sodium Chloride (Nacl 0.9% 1000 Ml) 1,000 mls @ 75 mls/hr IV DIRECT [facility] Insulin Aspart (Novolog) 0 units SUB-Q Q6HR NASH PRN Reason: Protocol Last Admin: 11/19/16 12:49 Dose: Not Given Insulin Human Isoph/Insulin Regular (Novolin 70/30) 22 unit SUB-Q BIDDIAB [facility] Lisinopril (Zestril) 10 mg PO QDAY [facility] Morphine Sulfate (Morphine) 2 mg IV Q4H PRN PRN Reason: Pain, Moderate (4-6) Last Admin: 11/19/16 01:15 Dose: 2 mg Oxycodone/Acetaminophen (Percocet 5/325) 1 tab PO Q6HR PRN PRN Reason: Pain Simple Syrup (Simple Syrup) 15 ml FEEDTUBE PRN PRN PRN Reason: Hypoglycemia Simple Syrup (Simple Syrup) 30 ml FEEDTUBE PRN PRN PRN Reason: Hypoglycemia Simvastatin (Zocor) 40 mg PO QHS [facility] Sodium Bicarbonate (Sodium Bicarbonate) 325 mg FEEDTUBE PRN PRN PRN Reason: For Clogged Feeding Tube Sodium Chloride (Sodium Chloride Flush Syringe 10 Ml) 10 ml IV PRN PRN PRN Reason: LINE FLUSH Review of Systems All systems: negative Ears, nose, mouth and throat: no headache Cardiovascular: no chest pain Respiratory: no cough, no shortness of breath Gastrointestinal: abdominal pain Neurological: balance difficulties, gait dysfunction Exam - Constitutional Vitals: Vital Signs - 12hr 11/19/16 11/19/16 11/19/16 05:18 07:51 10:27 Temperature 98.1 F 98.3 F Pulse Rate 90 Pulse Rate [ 86 84 Right] Respiratory 20 20 Rate Blood Pressure 122/79 140/90 [Right Arm] O2 Sat by Pulse 99 99 Oximetry 11/19/16 11/19/16 11:00 11:27 Temperature 98.1 F Pulse Rate 96 H Pulse Rate [ 88 Right] Respiratory 20 Rate Blood Pressure 139/90 [Right Arm] O2 Sat by Pulse 99 Oximetry General appearance: no acute distress, other (sitting up in bed) - EENT Eyes: EOM intact ENT: hearing intact - Neck Neck: supple - Respiratory Respiratory effort: normal - Gastrointestinal General gastrointestinal: Present: other (+PEG) - Musculoskeletal Musculoskeletal: generalized weakness - Neurologic Neurologic: CNII-XII intact - Psychiatric Psychiatric: cooperative, depressed - Labs CBC & Chem 7: 11/18/16 10:42 11/18/16 10:42 Labs: Laboratory Results - last 72 hr 11/18/16 11/19/16 11/19/16 22:06 07:42 12:11 POC Glucose 117 H 122 H 134 H Assessment and Plan Patient was assessed and evaluated for Acute Inpatient Rehab Unit. 56 y.o. male with history of multiple prior CVAs; no acute CVA this visit. Pt with worsening debility since last admission in October. Case discussed with SW ; pt needs NH placement as he cannot care for himself and reports that he cannot return to his home. Please call for any questions. Thank you for consultation. - Patient Problems (1) History of CVA with residual deficit Current Visit: Yes Status: Chronic (2) Debility Current Visit: Yes Status: Acute (3) Hypertension Current Visit: Yes Status: Chronic Qualifiers: Hypertension type: essential hypertension Qualified Code(s): I10 - Essential (primary) hypertension (4) Type II diabetes mellitus Current Visit: Yes Status: Chronic Qualifiers: Diabetes mellitus complication status: with hyperglycemia Diabetic retinopathy severity: D Proliferative retinopathy type: P Diabetes mellitus macular edema: D Diabetes mellitus half-way insulin use: with half-way use Laterality: L Chronic kidney disease stage: C Qualified Code(s): E11.65 - Type 2 diabetes mellitus with hyperglycemia; Z79.4 - FDC (current) use of insulin
--- NOTE | 2016-11-19 16:30 | Consultation ---
History of Present Illness - History of Present Illness Thank you for the consultation patient was evaluated today Assessment and plan Chronic kidney disease patient's creatinine appears to be stable patient's baseline creatinine has been 2.5 range Acute on chronic systolic heart failure No evidence to suggest anemia at this time Pressure appears to be clinically stable at this time Proteinuria appears to be high-grade will do protein creatinine ratio to assess the degree and severity Multiple other medical problems including coronary artery disease coronary artery bypass graft atrial fibrillation diabetes pacemaker placement multiple strokes Overall prognosis guarded long-term renal prognosis appears to be guarded at this time Upon discharge will need to make an appointment for follow-up in the office Continue to follow and make recommendation from renal standpoint Past History Past Medical History: CAD, diabetes, GERD, heart failure, hypertension, hyperlipidemia, renal failure, stroke Past Surgical History: CABG (x2), Other (Defibrillator Peg tube placement pacemaker) Social history: (reports not living at home since last discharge). denies: smoking, alcohol abuse Family history: CAD Medications and Allergies Allergies Allergy/AdvReac Type Severity Reaction Status Date / Time Penicillins Allergy confusion Verified 05/25/16 21:10 Home Medications Medication Instructions Recorded Confirmed Last Taken Type Aspirin [Aspirin BABY CHEW TAB] 81 mg PO QDAY #30 tab.chew 05/25/16 11/18/16 Unknown Rx Carvedilol [Coreg] 25 mg PO BID #60 tablet 05/25/16 11/18/16 Unknown Rx Clopidogrel [Plavix] 75 mg PO QDAY #30 tablet 05/25/16 11/18/16 Unknown Rx Gabapentin [Neurontin] 100 mg PO Q8HR #90 capsule 05/25/16 11/18/16 Unknown Rx Insulin NPH/Regular [NovoLIN 70/30] 22 unit SUB-Q BIDDIAB #1 units 05/25/1609/22 Unknown Rx Simvastatin [Zocor TAB] 40 mg PO QHS #30 tablet 05/25/16 11/18/16 Unknown Rx Famotidine [Pepcid] 20 mg PO BID #60 tablet 10/30/16 11/18/16 Unknown Rx Levofloxacin [Levaquin] 750 mg PO QDAY #7 tablet 10/30/16 11/18/16 Unknown Rx Lipase/Protease/Amylase [Pancreaze 1 each FEEDTUBE PRN PRN #1 capsule 10/30/16 11/18/[address] 10,500 Unit] Simple Syrup 15 ml FEEDTUBE PRN PRN #1 oral.liqd 10/30/16 11/18/16 Unknown Rx Simple Syrup 30 ml FEEDTUBE PRN PRN #1 oral.liqd 10/30/16 11/18/16 Unknown Rx oxyCODONE /ACETAMINOPHEN [Percocet 1 tab PO Q6HR PRN #20 tablet 10/30/16 Unknown Rx 5/325 mg] Active Meds: Active Medications Lipase/Protease/Amylase (Pancreaze 10,500 Unit) 1 each FEEDTUBE PRN PRN PRN Reason: For Clogged Feeding Tube Aspirin (Baby Aspirin) 81 mg PO QDAY [facility] Last Admin: 11/19/16 10:27 Dose: 81 mg Carvedilol (Coreg) 25 mg PO BID [facility] Last Admin: 11/19/16 10:27 Dose: 25 mg Clopidogrel Bisulfate (Plavix) 75 mg PO QDAY [facility] Last Admin: 11/19/16 10:27 Dose: 75 mg Dextrose (D50w (25gm)) 50 ml IV PRN PRN PRN Reason: Hypoglycemia Famotidine (Pepcid) 20 mg PO DAILY [facility] Gabapentin (Neurontin) 100 mg PO Q8H [facility] Last Admin: 11/19/16 15:57 Dose: 100 mg Sodium Chloride (Nacl 0.9% 1000 Ml) 1,000 mls @ 75 mls/hr IV DIRECT [facility] Insulin Aspart (Novolog) 0 units SUB-Q Q6HR [facility] PRN Reason: Protocol Last Admin: 11/19/16 12:49 Dose: Not Given Insulin Human Isoph/Insulin Regular (Novolin 70/30) 22 unit SUB-Q BIDDIAB [facility] Last Admin: 11/19/16 15:59 Dose: Not Given Lisinopril (Zestril) 10 mg PO QDAY [facility] Morphine Sulfate (Morphine) 2 mg IV Q4H PRN PRN Reason: Pain, Moderate (4-6) Last Admin: 11/19/16 01:15 Dose: 2 mg Oxycodone/Acetaminophen (Percocet 5/325) 1 tab PO Q6HR PRN PRN Reason: Pain Simple Syrup (Simple Syrup) 15 ml FEEDTUBE PRN PRN PRN Reason: Hypoglycemia Simple Syrup (Simple Syrup) 30 ml FEEDTUBE PRN PRN PRN Reason: Hypoglycemia Simvastatin (Zocor) 40 mg PO QHS [facility] Sodium Bicarbonate (Sodium Bicarbonate) 325 mg FEEDTUBE PRN PRN PRN Reason: For Clogged Feeding Tube Sodium Chloride (Sodium Chloride Flush Syringe 10 Ml) 10 ml IV PRN PRN PRN Reason: LINE FLUSH Exam - Vital Signs Vital signs: Vital Signs Temp Pulse Resp BP Pulse Ox 98.3 F 82 18 113/79 98 11/18/16 10:52 11/18/16 10:52 11/18/16 10:52 11/18/16 10:52 11/18/16 10:52 Results - Lab Results 11/18/16 10:42 11/18/16 10:42 Most recent lab results Calcium 10.2 mg/dL (8.4-10.2) 11/18/16 10:42
[2016-11-19] MEDS: ZOCOR PO SCH (21:37)
[2016-11-19] MEDS ORDERED: ZOCOR PO SCH ×2 (22:00)
[2016-11-20 00:49] LABS: Hematocrit 37.6 % (35.5-45.6); Mean Corpuscular HGB Conc 32 % (32-34); Mean Corpuscular Hemoglobin 26 pg (28-32); Mean Corpuscular Volume 83 fl (84-94); Platelet Count 272 K/mm3 (140-440); Red Blood Count 4.56 M/mm3 (3.65-5.03); Red Cell Distribution Width 14.3 % (13.2-15.2); White Blood Count 6.4 K/mm3 (4.5-11.0)
[2016-11-20 01:13] LABS: Albumin 3.4 g/dL (3.9-5); Albumin/Globulin Ratio 1.4 %; Bilirubin,Total 0.5 mg/dL (0.1-1.2); Calcium 9.2 mg/dL (8.4-10.2); Chloride 97.5 mmol/L (98-107); Potassium 3.9 mmol/L (3.6-5.0); Total Protein 5.8 g/dL (6.3-8.2)
--- NOTE | 2016-11-20 08:49 | Progress Note ---
Assessment and Plan chronic kidney disease creatinine is 2.0 patient has multiple risk factor for progression of renal failure over timeHas multiple strokes possibly may have renovascular disease current electrolytes appear to be stable,other than mild hyponatremia to be monitored We'll continue to monitor renal function as well as blood pressure Follow-up as needed basis Subjective Principal diagnosis: left sided weakness Interval history: Patient was seen today for follow-up on multiple renal related issues Events of 24 hours vitals labs intake output medications were reviewed Interdisciplinary Notes were also reviewed Creatinine is currently stable around 2 Patient denies any complaints of chest pain pressure or shortness of breath Objective - Vital Signs Vital signs: Vital Signs - 12hr 11/19/16 11/20/16 11/20/16 22:41 01:08 05:34 Temperature 97.6 F 98.2 F Pulse Rate 80 Pulse Rate [ 78 84 Right] Respiratory 20 18 Rate Blood Pressure 110/64 121/68 [Right Arm] O2 Sat by Pulse 98 96 Oximetry - General Appearance General appearance: appears stated age EENT: mucous membranes moist Neck: no JVD Respiratory: Present: Clear to Ascultation Cardiology: regular (S1-S2 normal) Gastrointestinal: normal (no renal bruit) Integumentary: no rash (dry skin) - Lab 11/20/16 00:37 11/20/16 00:37 Most recent lab results Calcium 9.2 mg/dL (8.4-10.2) 11/20/16 00:37
[2016-11-20] MEDS: ZESTRIL PO SCH (10:30)
[2016-11-20] MEDS: PEPCID PO SCH (10:30)
[2016-11-20] MEDS ORDERED: SODIUM BICARBONATE FEEDTUBE PRN ×2 (11:30→14:44)
[2016-11-20] MEDS ORDERED: SIMPLE SYRUP FEEDTUBE PRN ×4 (11:30→14:44)
[2016-11-20] MEDS ORDERED: PANCREAZE DR 10,500 UNIT FEEDTUBE PRN ×2 (11:30→14:44)
--- NOTE | 2016-11-20 11:32 | Progress Note ---
Assessment and Plan Assessment and plan: Left sided weakness, weaker than baseline. CT head unremarkable. To r/o acute stroke. He has had multiple strokes before. Leaking around PEG. GI consulted Diabetes Mellitus with hyperglycemia: High dose SSI, Accuchek qac/hs. History of multiple strokes, CVA with left hemiparesis: Continue with Aspirin, Plavix and statin. DVT prophylaxis: SCD Chronic kidney disease. Nephrology following History Interval history: Left sided weakness, leaking around PEG tube Hospitalist Physical - Physical exam Narrative exam: Gen. appearance: not in acute distress HEENT: Normocephalic atraumatic Neck: supple, no JVD Lungs: Clear to auscultation bilaterally, no crackles or wheezes Heart: S1-S2 regular, no murmurs, rubs or gallop Abdomen:soft, non-tender, PEG.non-distended, normal bowel sounds Extremity: no edema Neuro : Awake,alert,oriented,left hemiparesis Skin: no rashes - Constitutional Vitals: Temp Pulse Resp BP Pulse Ox 98.1 F 67 16 133/90 99 11/20/16 09:55 11/20/16 09:55 11/20/16 09:55 11/20/16 09:55 11/20/16 09:55 General appearance: Present: no acute distress, well-nourished Results - Labs CBC & Chem 7: 11/20/16 00:37 11/21/16 05:18 Labs: Laboratory Last Values WBC 6.4 K/mm3 (4.5-11.0) 11/20/16 00:37 RBC 4.56 M/mm3 (3.65-5.03) 11/20/16 00:37 Hgb 12.0 gm/dl (11.8-15.2) 11/20/16 00:37 Hct 37.6 % (35.5-45.6) 11/20/16 00:37 MCV 83 fl (84-94) L 11/20/16 00:37 MCH 26 pg (28-32) L 11/20/16 00:37 MCHC 32 % (32-34) 11/20/16 00:37 RDW 14.3 % (13.2-15.2) 11/20/16 00:37 Plt Count 272 K/mm3 (140-440) 11/20/16 00:37 Lymph % (Auto) 25.3 % (13.4-35.0) 11/18/16 10:42 [place] % (Auto) 8.1 % (0.0-7.3) H 11/18/16 10:42 Eos % (Auto) 6.2 % (0.0-4.3) H 11/18/16 10:42 Baso % (Auto) 1.0 % (0.0-1.8) 11/18/16 10:42 Lymph # 1.7 K/mm3 (1.2-5.4) 11/18/16 10:42 [place] # 0.5 K/mm3 (0.0-0.8) 11/18/16 10:42 Eos # 0.4 K/mm3 (0.0-0.4) 11/18/16 10:42 Baso # 0.1 K/mm3 (0.0-0.1) 11/18/16 10:42 Seg Neutrophils % 59.4 % (40.0-70.0) 11/18/16 10:42 Seg Neutrophils # 3.9 K/mm3 (1.8-7.7) 11/18/16 10:42 PT 12.8 Sec. (12.2-14.9) 11/18/16 10:42 INR 0.97 (0.87-1.13) 11/18/16 10:42 APTT 25.3 Sec. (24.2-36.6) 11/18/16 10:42 Thrombin Time 16.9 Sec. (15.1-19.6) 11/18/16 10:42 Sodium 133 mmol/L (137-145) L D 11/20/16 00:37 Potassium 3.9 mmol/L (3.6-5.0) 11/20/16 00:37 Chloride 97.5 mmol/L (98-107) L 11/20/16 00:37 Carbon Dioxide 23 mmol/L (22-30) 11/20/16 00:37 Anion Gap 16 mmol/L 11/20/16 00:37 BUN 26 mg/dL (9-20) H 11/20/16 00:37 Creatinine 2.0 mg/dL (0.8-1.5) H 11/20/16 00:37 Estimated GFR 42 ml/min 11/20/16 00:37 BUN/Creatinine Ratio 13.00 % 11/20/16 00:37 Glucose 112 mg/dL (75-100) H 11/20/16 00:37 POC Glucose 104 (70-105) 11/20/16 06:16 Calcium 9.2 mg/dL (8.4-10.2) 11/20/16 00:37 Total Bilirubin 0.5 mg/dL (0.1-1.2) 11/20/16 00:37 Direct Bilirubin < 0.2 mg/dL (0-0.2) 11/18/16 10:42 AST 8 units/L (5-40) 11/20/16 00:37 ALT 6 units/L (7-56) L 11/20/16 00:37 Alkaline Phosphatase 58 units/L (35-129) 11/20/16 00:37 Total Protein 5.8 g/dL (6.3-8.2) L 11/20/16 00:37 Albumin 3.4 g/dL (3.9-5) L 11/20/16 00:37 Albumin/Globulin Ratio 1.4 % 11/20/16 00:37 Lipase 29 units/L (13-60) 11/18/16 10:42
[2016-11-20] MEDS: ZOCOR PO SCH (22:58)
[2016-11-21 06:04] LABS: BUN/Creatinine Ratio 11.5; Calcium 9.6 mg/dL (8.4-10.2); Chloride 100.4 mmol/L (98-107); Potassium 4.3 mmol/L (3.6-5.0)
[2016-11-21] MEDS: ZESTRIL PO SCH (09:47)
[2016-11-21] MEDS: PEPCID PO SCH (09:47)
--- NOTE | 2016-11-21 09:48 | Gastroenterology Consultation ---
History of Present Illness - Reason for Consult Consult date: 11/21/16 leaking PEG site Requesting physician: ADRIAN ESPINO - History of Present Illness Mr. Schmitz is a 56-year-old male with a past medical history of CABG, afib, DM, pacemaker, multiple CVAs presented to the ED with weakness and "leaking around his PEG site". Patient reports he had his PEG placed 1 monthago at [facility] ? [place]? 2/2 CVA. Patient complains of abdominal pain around PEG site that was not noted prior to PEG. Patient takes aspirin 325 mg daily and plavix 75 mg po , however per note, has not taken this in 2-3 days. He states his BM have decreased since PEG feedings started and they are mainly diarrhea. Of note , patient does give irregular information regarding his pain and leaking of the PEG. He is reporting at this time, the PEG was leaking from the end and one of the "caps" were missing. He denies leaking from around site. Past History Past Medical History: CAD, diabetes, GERD, heart failure, hypertension, hyperlipidemia, renal failure, stroke Past Surgical History: CABG (x2), Other (Defibrillator Peg tube placement pacemaker) Social history: (reports not living at home since last discharge). denies: smoking, alcohol abuse Family history: CAD Medications and Allergies Allergies Allergy/AdvReac Type Severity Reaction Status Date / Time Penicillins Allergy confusion Verified 05/25/16 21:10 Home Medications Medication Instructions Recorded Confirmed Last Taken Type Aspirin [Aspirin BABY CHEW TAB] 81 mg PO QDAY #30 tab.chew 05/25/16 11/18/16 Unknown Rx Carvedilol [Coreg] 25 mg PO BID #60 tablet 05/25/16 11/18/16 Unknown Rx Clopidogrel [Plavix] 75 mg PO QDAY #30 tablet 05/25/16 11/18/16 Unknown Rx Gabapentin [Neurontin] 100 mg PO Q8HR #90 capsule 05/25/16 11/18/16 Unknown Rx Insulin NPH/Regular [NovoLIN 70/30] 22 unit SUB-Q BIDDIAB #1 units 05/25/1609/22 Unknown Rx Simvastatin [Zocor TAB] 40 mg PO QHS #30 tablet 05/25/16 11/18/16 Unknown Rx Famotidine [Pepcid] 20 mg PO BID #60 tablet 10/30/16 11/18/16 Unknown Rx Levofloxacin [Levaquin] 750 mg PO QDAY #7 tablet 10/30/16 11/18/16 Unknown Rx Lipase/Protease/Amylase [Pancreaze 1 each FEEDTUBE PRN PRN #1 capsule 10/30/16 11/18/16 Unknown Rx 10,500 Unit] Simple Syrup 15 ml FEEDTUBE PRN PRN #1 oral.liqd 10/30/16 11/18/16 Unknown Rx Simple Syrup 30 ml FEEDTUBE PRN PRN #1 oral.liqd 10/30/16 11/18/16 Unknown Rx oxyCODONE /ACETAMINOPHEN [Percocet 1 tab PO Q6HR PRN #20 tablet 10/30/16 Unknown Rx 5/325 mg] Active Meds: Active Medications Lipase/Protease/Amylase (Pancreaze Dr 10,500 Unit) 1 each FEEDTUBE PRN PRN PRN Reason: For Clogged Feeding Tube Famotidine (Pepcid) 20 mg PO DAILY [facility] Last Admin: 11/20/16 10:30 Dose: 20 mg Lisinopril (Zestril) 10 mg PO QDAY [facility] Last Admin: 11/20/16 10:30 Dose: 10 mg Simple Syrup (Simple Syrup) 30 ml FEEDTUBE PRN PRN PRN Reason: Hypoglycemia Simple Syrup (Simple Syrup) 15 ml FEEDTUBE PRN PRN PRN Reason: Hypoglycemia Simple Syrup (Simple Syrup) 30 ml FEEDTUBE PRN PRN PRN Reason: Hypoglycemia Simvastatin (Zocor) 40 mg PO QHS [facility] Last Admin: 11/20/16 22:58 Dose: 40 mg Sodium Bicarbonate (Sodium Bicarbonate) 325 mg FEEDTUBE PRN PRN PRN Reason: For Clogged Feeding Tube Review of Systems - Review of Systems All systems: negative Gastrointestinal: abdominal pain, diarrhea, constipation Neurological: weakness Exam - Constitutional Vital Signs: Temp Pulse Resp BP Pulse Ox 98.1 F 70 19 126/83 100 11/21/16 06:27 11/21/16 07:52 11/21/16 06:27 11/21/16 06:27 11/21/16 06:27 General appearance: no acute distress - EENT Eyes: EOM intact ENT: hearing intact - Neck Neck: supple - Respiratory Respiratory: bilateral: CTA - Cardiovascular Rhythm: regular Heart Sounds: Present: S1 & S2 Extremities: No edema - Gastrointestinal General gastrointestinal: Present: soft, non-tender, non-distended, normal bowel sounds, other (PEG site benign) - Integumentary Integumentary: Present: warm, dry - Neurologic Neurological: alert and oriented x3 - Psychiatric Psychiatric: appropriate mood/affect - Labs CBC & Chem 7: 11/20/16 00:37 11/21/16 05:18 Lab Results: Laboratory Results - last 24 hr 11/20/16 11/20/16 11/20/16 11:49 16:13 21:33 Sodium Potassium Chloride Carbon Dioxide Anion Gap BUN Creatinine Estimated GFR BUN/Creatinine Ratio Glucose POC Glucose 107 H 83 79 Calcium 11/21/16 05:18 Sodium 138 Potassium 4.3 Chloride 100.4 Carbon Dioxide 24 Anion Gap 18 BUN 23 H Creatinine 2.0 H Estimated GFR 42 BUN/Creatinine Ratio 11.50 Glucose 91 POC Glucose Calcium 9.6 Assessment and Plan 1. PEG malfunction -patient denies leaking at site, nursing has confirmed this. Site benign with no difficulty with feeding. -Paient states he can swallow clear liquids, consider re-evaluation per speech path once neuro workup complete -CT of A/P with no acute findings -Get medical record of PEG placement per [place] to review EGD done at time of PEG. -Will follow. 2.S/P CVA -Neuro workup in process per primary 3.CHF
--- NOTE | 2016-11-21 09:53 | Progress Note ---
Assessment and Plan Chronic kidney disease patient has not been to our clinic since 2013, but luckily he has stable renal function Patient mostly appeared to be prerenal admission creatinine was 2.5 Creatinine is currently stable baseline creatinine has been around 2.2 even 3 years ago Patient is safe to continue with lisinopril at this time as long as he maintains his hydration currently he is working on his fluid Blood pressure is stable and well-controlled Calcium is currently 9.6 stable Patient does have marked asymmetry of the kidney right being 12.9 left being 9.4 cm right kidney has 4 x 2 cm cyst in the lower pole Patient stated that he is aware of this cyst No evidence to suggest anemia Mild malnutrition protein was around 3.4 Patient agrees to follow up in the office upon discharge Subjective Principal diagnosis: left sided weakness Interval history: Patient was seen today for follow-up, he is willing to make an appointment for follow-up upon discharge Seems to be doing better has better understanding of renal issues Denies any complaints of chest pain pressure or shortness of breath Vitals labs events at 24 hours noted Objective - Vital Signs Vital signs: Vital Signs - 12hr 11/20/16 11/21/16 11/21/16 22:00 01:10 06:27 Temperature 98.4 F 98.1 F Pulse Rate Pulse Rate [ 80 80 71 Right] Respiratory 20 19 19 Rate Blood Pressure 116/78 126/83 [Right Arm] O2 Sat by Pulse 100 100 Oximetry 11/21/16 07:52 Temperature Pulse Rate 70 Pulse Rate [ Right] Respiratory Rate Blood Pressure [Right Arm] O2 Sat by Pulse Oximetry - General Appearance General appearance: appears stated age EENT: mucous membranes moist Neck: no JVD Cardiology: regular Gastrointestinal: normal Integumentary: no rash Neurologic: no asterixis - Lab 11/20/16 00:37 11/21/16 05:18 Most recent lab results Calcium 9.6 mg/dL (8.4-10.2) 11/21/16 05:18
--- NOTE | 2016-11-21 10:21 | Ultrasound Report ---
ULTRASOUND RENAL BILATERAL: INDICATION: Renal failure. COMPARISON: 10/27/2016 renal ultrasound and 11/18/2016 CT. FINDINGS: Renal sonography again demonstrates top normal/borderline increased renal cortical echogenicity. Grossly preserved contours. No hydronephrosis. Right kidney measures 12.9 x 5.3 x 6.5 cm with cortical thickness of 1.3 cm. Approximately 4 x 3.4 cm benign right lower renal pole cyst again seen. Left kidney estimated at 9.4 x 3.6 x 3.4 cm with cortical thickness of 1.2 cm. Urinary bladder grossly unremarkable, in so far assessed. CONCLUSION: No acute renal sonographic abnormality in this patient with possible underlying medical renal disease. A right lower renal cortical cyst and an asymmetrically smaller left kidney again noted, as detailed above. Thank you for the opportunity to participate in this patient's care.
--- NOTE | 2016-11-21 16:20 | Progress Note ---
Assessment and Plan Assessment and plan: Left sided weakness, weaker than baseline. CT head unremarkable. To r/o acute stroke. Cannot do MRI because he has AICD. He has had multiple strokes before. Neurology consulted. Leaking around PEG. GI following. Diabetes Mellitus with hyperglycemia. Fingerstick glucose before every meal and at bedtime. History of multiple strokes, CVA with left hemiparesis, dysphagia: Continue with Aspirin,Plavix and statin. Dysphagia, he has PEG tube. Swallow evaluation DVT prophylaxis: SCD Chronic kidney disease. Nephrology following cardiomyopathy status post AICD placement Disposition. Patient will need placement. History Interval history: Left sided weakness, leaking around PEG tube Hospitalist Physical - Physical exam Narrative exam: Gen. appearance: not in acute distress HEENT: Normocephalic atraumatic Neck: supple, no JVD Lungs: Clear to auscultation bilaterally, no crackles or wheezes Heart: S1-S2 regular, no murmurs, rubs or gallop Abdomen:soft, non-tender, PEG.non-distended, normal bowel sounds Extremity: no edema Neuro : Awake,alert,oriented,left hemiparesis Skin: no rashes - Constitutional Vitals: Temp Pulse Resp BP Pulse Ox 98.0 F 72 20 137/93 99 11/21/16 08:04 11/21/16 08:04 11/21/16 08:04 11/21/16 08:04 11/21/16 08:04 General appearance: Present: no acute distress, well-nourished Results - Labs CBC & Chem 7: 11/20/16 00:37 11/21/16 05:18 Labs: Laboratory Last Values WBC 6.4 K/mm3 (4.5-11.0) 11/20/16 00:37 RBC 4.56 M/mm3 (3.65-5.03) 11/20/16 00:37 Hgb 12.0 gm/dl (11.8-15.2) 11/20/16 00:37 Hct 37.6 % (35.5-45.6) 11/20/16 00:37 MCV 83 fl (84-94) L 11/20/16 00:37 MCH 26 pg (28-32) L 11/20/16 00:37 MCHC 32 % (32-34) 11/20/16 00:37 RDW 14.3 % (13.2-15.2) 11/20/16 00:37 Plt Count 272 K/mm3 (140-440) 11/20/16 00:37 Lymph % (Auto) 25.3 % (13.4-35.0) 11/18/16 10:42 [place] % (Auto) 8.1 % (0.0-7.3) H 11/18/16 10:42 Eos % (Auto) 6.2 % (0.0-4.3) H 11/18/16 10:42 Baso % (Auto) 1.0 % (0.0-1.8) 11/18/16 10:42 Lymph # 1.7 K/mm3 (1.2-5.4) 11/18/16 10:42 [place] # 0.5 K/mm3 (0.0-0.8) 11/18/16 10:42 Eos # 0.4 K/mm3 (0.0-0.4) 11/18/16 10:42 Baso # 0.1 K/mm3 (0.0-0.1) 11/18/16 10:42 Seg Neutrophils % 59.4 % (40.0-70.0) 11/18/16 10:42 Seg Neutrophils # 3.9 K/mm3 (1.8-7.7) 11/18/16 10:42 PT 12.8 Sec. (12.2-14.9) 11/18/16 10:42 INR 0.97 (0.87-1.13) 11/18/16 10:42 APTT 25.3 Sec. (24.2-36.6) 11/18/16 10:42 Thrombin Time 16.9 Sec. (15.1-19.6) 11/18/16 10:42 Sodium 138 mmol/L (137-145) 11/21/16 05:18 Potassium 4.3 mmol/L (3.6-5.0) 11/21/16 05:18 Chloride 100.4 mmol/L (98-107) 11/21/16 05:18 Carbon Dioxide 24 mmol/L (22-30) 11/21/16 05:18 Anion Gap 18 mmol/L 11/21/16 05:18 BUN 23 mg/dL (9-20) H 11/21/16 05:18 Creatinine 2.0 mg/dL (0.8-1.5) H 11/21/16 05:18 Estimated GFR 42 ml/min 11/21/16 05:18 BUN/Creatinine Ratio 11.50 % 11/21/16 05:18 Glucose 91 mg/dL (75-100) 11/21/16 05:18 POC Glucose 79 (70-105) 11/20/16 21:33 Calcium 9.6 mg/dL (8.4-10.2) 11/21/16 05:18 Total Bilirubin 0.5 mg/dL (0.1-1.2) 11/20/16 00:37 Direct Bilirubin < 0.2 mg/dL (0-0.2) 11/18/16 10:42 AST 8 units/L (5-40) 11/20/16 00:37 ALT 6 units/L (7-56) L 11/20/16 00:37 Alkaline Phosphatase 58 units/L (35-129) 11/20/16 00:37 Total Protein 5.8 g/dL (6.3-8.2) L 11/20/16 00:37 Albumin 3.4 g/dL (3.9-5) L 11/20/16 00:37 Albumin/Globulin Ratio 1.4 % 11/20/16 00:37 Lipase 29 units/L (13-60) 11/18/16 10:42
[2016-11-21] MEDS ORDERED: HALFPRIN EC PO SCH (19:00)
[2016-11-21] MEDS ORDERED: PLAVIX PO SCH (19:00)
[2016-11-21] MEDS: PLAVIX FEEDTUBE SCH (20:56)
[2016-11-21] MEDS: BABY ASPIRIN FEEDTUBE SCH (20:57)
[2016-11-21] MEDS: ZOCOR PO SCH (22:25)
[2016-11-21] MEDS: COREG FEEDTUBE SCH (22:27)
--- NOTE | 2016-11-22 07:56 | Progress Note ---
Assessment and Plan Chronic kidney disease the patient has been seen and followed in our office, last visit was approximately 2 years ago, admission creatinine was 2.5 currently to Mild malnutrition protein 3.4 earlier was around 4 during this admission Will check urinalysis as well as urine for protein creatinine ratio Ultrasonogram finding has been discussed with patient Patient admitted with some degree of volume depletion, creatinine has been currently stable at around 2 which was his baseline Patient is willing to make an appointment for follow-up upon discharge Renal cyst for which she will need a follow-up ultrasonogram in 3-6 months Noncompliant patient advised to keep all follow-up appointments Mild hyponatremia overall doing better history of dysphagia, multiple strokes, admitted with malfunctioning PEG tube currently being addressed by GI Patient is still able to drink some liquids by mouth Needs to maintain hydration patient educated Subjective Principal diagnosis: left sided weakness Interval history: Patient was seen today for follow-up no acute complains able to drink fluid no nausea vomiting Vitals labs intake output medications were reviewed events of 24 hours noted Objective - Vital Signs Vital signs: Vital Signs - 12hr 11/21/16 11/21/16 11/21/16 20:14 20:18 22:00 Temperature 97.9 F Pulse Rate Pulse Rate [ 77 77 Right] Respiratory 18 18 Rate Respiratory 20 Rate [Abdomen] Blood Pressure Blood Pressure 129/90 [Right Arm] O2 Sat by Pulse 99 Oximetry 11/21/16 11/22/16 11/22/16 22:27 00:55 05:44 Temperature 98.2 F 97.5 F L Pulse Rate 77 Pulse Rate [ 76 72 Right] Respiratory 20 18 Rate Respiratory Rate [Abdomen] Blood Pressure 129/90 Blood Pressure 131/64 128/68 [Right Arm] O2 Sat by Pulse 98 98 Oximetry - General Appearance General appearance: appears stated age EENT: mucous membranes moist Neck: no JVD Respiratory: Present: Clear to Ascultation Cardiology: regular Gastrointestinal: normal (soft nontender) Integumentary: other (dry skin) Psychiatric: other (pleasant) - Lab 11/20/16 00:37 11/21/16 05:18 Most recent lab results Calcium 9.6 mg/dL (8.4-10.2) 11/21/16 05:18
[2016-11-22] MEDS: PEPCID PO SCH (09:03)
[2016-11-22] MEDS: BABY ASPIRIN FEEDTUBE SCH (09:03)
[2016-11-22] MEDS: PLAVIX FEEDTUBE SCH (09:03)
[2016-11-22] MEDS: ZESTRIL PO SCH (09:04)
[2016-11-22] MEDS: COREG FEEDTUBE SCH ×2 (09:04→21:44)
[2016-11-22 09:34] LABS: Bilirubin,Urine NEG (Negative); Blood,Urine NEG (Negative); Ketones,Urine TR mg/dL (Negative); Leukocyte Esterase,Urine NEG (Negative); Nitrite,Urine NEG (Negative); RBC,Urine < 1.0 /HPF (0.0-6.0); Urobilinogen,Urine < 2.0 mg/dL (<2.0)
--- NOTE | 2016-11-22 10:19 | Gastroenterology Progress Note ---
<MARCO RICHARDS - Last Filed: 11/22/16 10:15> Assessment and Plan 1. PEG malfunction (G tube?) - Medical records reviewed and it is unclear as to initiation of PEG tube (not seen in medical records) -patient denies leaking at site, nursing has confirmed this. Site benign with no difficulty with feeding. -Recommend speech path eval. The patient does have a hx of multiple CVAs, but seems to have no swallowing difficulty at bedside. -CT of A/P with no acute findings. PEG site in good position per CT. -The patient states his abdominal pain has resolved and is more related to movement. -Will follow. 2.S/P CVA -Neuro workup in process per primary 3.CHF Subjective Date of service: 11/22/16 Principal diagnosis: left sided weakness Interval history: No acute events overnight. Patient is receiving feeding now, no leaking from tube. Objective - Constitutional Vitals: Temp Pulse Resp BP Pulse Ox 97.7 F 69 20 115/82 99 11/22/16 07:00 11/22/16 07:00 11/22/16 08:08 11/22/16 07:00 11/22/16 07:00 General appearance: no acute distress - EENT Eyes: EOM intact ENT: hearing intact - Neck Neck: supple - Respiratory Respiratory: bilateral: CTA - Cardiovascular Rhythm: regular Heart Sounds: Present: S1 & S2 - Gastrointestinal General gastrointestinal: Present: soft, non-tender, non-distended, normal bowel sounds, other (PEG site benign) - Integumentary Integumentary: Present: warm, dry - Neurologic Neurological: alert and oriented x3 - Labs CBC & Chem 7: 11/20/16 00:37 11/21/16 05:18 Labs: Laboratory Results - last 24 hr 11/21/16 11/22/16 11/22/16 22:32 07:55 07:55 POC Glucose 70 Urine Color Yellow Urine Turbidity Clear Urine pH 6.0 Ur Specific [place] 1.009 Urine Protein 100 mg/dl Urine Glucose (UA) Neg Urine Ketones Tr Urine Blood Neg Urine Nitrite Neg Urine Bilirubin Neg Urine Urobilinogen < 2.0 Ur Leukocyte Esterase Neg Urine WBC (Auto) 1.0 Urine RBC (Auto) < 1.0 U Epithel Cells (Auto) < 1.0 Urine Creatinine 95.4 H Urine Total Protein 64 H <PANZARELLA,FRIDA S - Last Filed: 11/22/16 17:09> Subjective Interval history: GI Attending: I have performed a face to face evaluation on Mr. Schmitz and agree with the above note of Melodie Richards NP. His PEG is no longer leaking and the site looks clean/dry/intact. He has occasional pain with movement, possibly from muscular irritation from where the PEG was placed. Would not manipulate PEG and would recommend pain meds PRN. Will sign off. Please re-call with questions. Thank you! Objective - Constitutional Vitals: Temp Pulse Resp BP Pulse Ox 97.7 F 69 20 115/82 99 11/22/16 07:00 11/22/16 07:00 11/22/16 08:08 11/22/16 07:00 11/22/16 07:00 - Labs CBC & Chem 7: 11/20/16 00:37 11/21/16 05:18 Labs: Laboratory Results - last 24 hr 11/21/16 11/22/16 11/22/16 22:32 07:55 07:55 POC Glucose 70 Urine Color Yellow Urine Turbidity Clear Urine pH 6.0 Ur Specific [place] 1.009 Urine Protein 100 mg/dl Urine Glucose (UA) Neg Urine Ketones Tr Urine Blood Neg Urine Nitrite Neg Urine Bilirubin Neg Urine Urobilinogen < 2.0 Ur Leukocyte Esterase Neg Urine WBC (Auto) 1.0 Urine RBC (Auto) < 1.0 U Epithel Cells (Auto) < 1.0 Urine Creatinine 95.4 H Urine Total Protein 64 H
--- NOTE | 2016-11-22 10:23 | Discharge Summary ---
Providers - Providers Date of Admission: 11/18/16 12:07 Date of discharge: 11/23/16 Attending physician: ADRIAN ESPINO 11/19/16 Consult to Physician [CONS] Routine Consulting Provider: ALMAZ ROBERSON Reason For Exam: cva Place consult to:: rehab Notified:: y Phone number called:: [phone] Was contact made?: No Time called:: 08:29 Comment:: put on dr ta Consult to Physician [CONS] Routine Consulting Provider: INESSA ZAVALA Reason For Exam: CVA Place consult to:: [id number] Notified:: arleth Phone number called:: [phone] Was contact made?: No Time called:: 08:27 Comment:: lef message 11/19/16 08:03 Occupational Therapy Evaluate and Treat [CONS] Routine Comment: Reason For Exam: Neuro deficits Physical Therapy Evaluation and Treat [CONS] Routine Comment: Reason For Exam: Neuro deficits 11/19/16 08:34 Consult to Physician [CONS] Routine Consulting Provider: JOELLE NUÑEZ Reason For Exam: Peg site leakage Place consult to:: gastro Notified:: office Phone number called:: [phone] Was contact made?: Yes If yes, spoke with:: amanda Time called:: 12:30 11/19/16 08:35 Consult to Physician [CONS] Routine Consulting Provider: ROBERT FOX Reason For Exam: CKD Place consult to:: shantel Notified:: office Phone number called:: [phone] Was contact made?: Yes If yes, spoke with:: jade Time called:: 15:33 11/19/16 10:06 Consult to Dietitian/Nutrition [CONS] Stat Physician Instructions: Reason For Exam: to Initiate G-tube feeding duong diabetic Reason for Consult: G tube feeding 11/21/16 11:38 Speech Therapy Evaluation and Treat [CONS] Routine Reason For Exam: pt has PEG, but wants to try food 11/22/16 07:00 Consult to Physician [CONS] Routine Consulting Provider: EHSAN AGGARWAL Reason For Exam: left side weaker, prev strokes Place consult to:: Dr. Aggawral Primary care physician: CLIENT SERVICE ASSOCIATE Hospitalization Condition: Stable Disposition: DC/TX INPT REHAB FACILITY - Discharge Diagnoses (1) Leaking PEG tube Status: Acute Core Measure Documentation - Palliative Care Palliative Care/ Comfort Measures: Not Applicable Exam - Constitutional Vitals: Temp Pulse Resp BP Pulse Ox 97.7 F 69 20 115/82 99 11/22/16 07:00 11/22/16 07:00 11/22/16 08:08 11/22/16 07:00 11/22/16 07:00 Plan Follow up with: [facility] [Provider Group] - 7 Days PRIMARY CARE, [Primary Care Provider] - 3-5 Days Prescriptions: Carvedilol [Coreg] 6.25 mg FEEDTUBE BID #60 tablet oxyCODONE /ACETAMINOPHEN [Percocet 5/325 mg] 1 tab PO Q6HR PRN #20 tablet PRN Reason: Pain
--- NOTE | 2016-11-22 13:06 | Consultation ---
History of Present Illness Consult date: 11/22/16 Chief complaint: worsening left sided weakness History of present illness: This is a 56 YO M with previous history of stroke, non compliant with antiplatelet therapy who presented to the hospital with PEG dysfunction and worsening of his baseline left sided history. Pt gives a tangential history but appears that he was having some social issues and was unable to care for himself. He admits taht he was non compliant with medications. Today he is feeling much better and strength is close to baseline. Past History Past Medical History: CAD, diabetes, GERD, heart failure, hypertension, hyperlipidemia, renal failure, stroke Past Surgical History: CABG (x2), Other (Defibrillator Peg tube placement pacemaker) Social history: (reports not living at home since last discharge). denies: smoking, alcohol abuse Family history: CAD Medications and Allergies Allergies Allergy/AdvReac Type Severity Reaction Status Date / Time Penicillins Allergy confusion Verified 05/25/16 21:10 Home Medications Medication Instructions Recorded Confirmed Last Taken Type Aspirin [Aspirin BABY CHEW TAB] 81 mg PO QDAY #30 tab.chew 05/25/16 11/18/16 Unknown Rx Carvedilol [Coreg] 25 mg PO BID #60 tablet 05/25/16 11/18/16 Unknown Rx Clopidogrel [Plavix] 75 mg PO QDAY #30 tablet 05/25/16 11/18/16 Unknown Rx Gabapentin [Neurontin] 100 mg PO Q8HR #90 capsule 05/25/16 11/18/16 Unknown Rx Insulin NPH/Regular [NovoLIN 70/30] 22 unit SUB-Q BIDDIAB #1 units 05/25/1609/22 Unknown Rx Simvastatin [Zocor TAB] 40 mg PO QHS #30 tablet 05/25/16 11/18/16 Unknown Rx Famotidine [Pepcid] 20 mg PO BID #60 tablet 10/30/16 11/18/16 Unknown Rx Levofloxacin [Levaquin] 750 mg PO QDAY #7 tablet 10/30/16 11/18/16 Unknown Rx Lipase/Protease/Amylase [Pancreaze 1 each FEEDTUBE PRN PRN #1 capsule 10/30/16 11/18/[address] 10,500 Unit] Simple Syrup 15 ml FEEDTUBE PRN PRN #1 oral.liqd 10/30/16 11/18/16 Unknown Rx Simple Syrup 30 ml FEEDTUBE PRN PRN #1 oral.liqd 10/30/16 11/18/16 Unknown Rx oxyCODONE /ACETAMINOPHEN [Percocet 1 tab PO Q6HR PRN #20 tablet 10/30/16 Unknown Rx 5/325 mg] Active Meds: Active Medications Lipase/Protease/Amylase (Pancreaze Dr 10,500 Unit) 1 each FEEDTUBE PRN PRN PRN Reason: For Clogged Feeding Tube Aspirin (Baby Aspirin) 81 mg FEEDTUBE QDAY [facility] Last Admin: 11/22/16 09:03 Dose: 81 mg Carvedilol (Coreg) 6.25 mg FEEDTUBE BID [facility] Last Admin: 11/22/16 09:04 Dose: 6.25 mg Clopidogrel Bisulfate (Plavix) 75 mg FEEDTUBE QDAY [facility] Last Admin: 11/22/16 09:03 Dose: 75 mg Famotidine (Pepcid) 20 mg PO DAILY [facility] Last Admin: 11/22/16 09:03 Dose: 20 mg Lisinopril (Zestril) 10 mg PO QDAY [facility] Last Admin: 11/22/16 09:04 Dose: 10 mg Simple Syrup (Simple Syrup) 30 ml FEEDTUBE PRN PRN PRN Reason: Hypoglycemia Simple Syrup (Simple Syrup) 15 ml FEEDTUBE PRN PRN PRN Reason: Hypoglycemia Simple Syrup (Simple Syrup) 30 ml FEEDTUBE PRN PRN PRN Reason: Hypoglycemia Simvastatin (Zocor) 40 mg PO QHS [facility] Last Admin: 11/21/16 22:25 Dose: 40 mg Sodium Bicarbonate (Sodium Bicarbonate) 325 mg FEEDTUBE PRN PRN PRN Reason: For Clogged Feeding Tube Review of Systems Neurological: weakness Physical Examination - Vital Signs Vital Signs: Vital Signs Temp Pulse Resp BP Pulse Ox 98.3 F 82 18 113/79 98 11/18/16 10:52 11/18/16 10:52 11/18/16 10:52 11/18/16 10:52 11/18/16 10:52 - EENT EENT: Present: PERRL - Respiratory Respiratory: Present: lungs clear - Cardiovascular Cardiovascular: Present: regular rate - Neurologic Cranial nerve examination: PERRL, EOMI, VFF, V1/V2/V3 grossly intact, tongue midline, facial droop Speech examination: intact Motor examination - right side: 5/5: biceps, triceps, wrist flexion, wrist extension, social sciences chair, hip flexors, knee extensors, dorsiflexion, toe extension (EHL) , plantarflexion Motor examination - left side: 4/5: biceps, triceps, wrist flexion, wrist extension, social sciences chair, hip flexors, knee extensors, dorsiflexion, toe extension (EHL) , plantarflexion Reflexes: 1+: ankle, bicep, knee, tricep - Additional Exam Additional Exam: Ct head only with chronic changes, nothing acute Results - Laboratory Findings CBC and BMP: 11/20/16 00:37 11/21/16 05:18 Abnormal Lab Findings: Abnormal Labs 11/18/16 11/19/16 11/19/16 22:06 07:42 12:11 MCV MCH Sodium Chloride BUN Creatinine Glucose POC Glucose 117 H 122 H 134 H ALT Total Protein Albumin Urine Creatinine Urine Total Protein 11/19/16 11/20/16 11/20/16 15:52 00:37 00:37 MCV 83 L MCH 26 L Sodium 133 L D Chloride 97.5 L BUN 26 H Creatinine 2.0 H Glucose 112 H POC Glucose 111 H ALT 6 L Total Protein 5.8 L Albumin 3.4 L Urine Creatinine Urine Total Protein 11/20/16 11/21/16 11/22/16 11:49 05:18 07:55 MCV MCH Sodium Chloride BUN 23 H Creatinine 2.0 H Glucose POC Glucose 107 H ALT Total Protein Albumin Urine Creatinine 95.4 H Urine Total Protein 64 H Assessment and Plan TIA vs decompensation of previous stroke. Recommend: Continue aspirin and Plavix with statin and pt with significant cardiac issues as well. could repeat CT in 48-72 hours after initial study to look for new ischemia PT/OT/SNF placement Continue care for his medical issues as you are doing echo and carotid reports pending Thank you for this consult. Call with questions.
--- NOTE | 2016-11-22 17:34 | Progress Note ---
Assessment and Plan Assessment and plan: Left sided weakness, weaker than baseline. CT head unremarkable. To r/o acute stroke. Possible TIA. Cannot do MRI because he has AICD. He has had multiple strokes before. Neurology consulted. TIA. Leaking around PEG. GI following. Diabetes Mellitus with hyperglycemia. Fingerstick glucose before every meal and at bedtime. History of multiple strokes, CVA with left hemiparesis, dysphagia: Continue with Aspirin,Plavix and statin. Dysphagia, he has PEG tube. Swallow evaluation DVT prophylaxis: SCD Chronic kidney disease. Nephrology following cardiomyopathy status post AICD placement Disposition. Patient will need placement. History Interval history: Left sided weakness, leaking around PEG tube Hospitalist Physical - Physical exam Narrative exam: Gen. appearance: not in acute distress HEENT: Normocephalic atraumatic Neck: supple, no JVD Lungs: Clear to auscultation bilaterally, no crackles or wheezes Heart: S1-S2 regular, no murmurs, rubs or gallop Abdomen:soft, non-tender, PEG.non-distended, normal bowel sounds Extremity: no edema, no clubbing or cyanosis Neuro : Awake,alert,oriented,left hemiparesis Skin: no rashes - Constitutional Vitals: Temp Pulse Resp BP Pulse Ox 97.7 F 69 20 115/82 99 11/22/16 07:00 11/22/16 07:00 11/22/16 08:08 11/22/16 07:00 11/22/16 07:00 General appearance: Present: no acute distress, well-nourished Results - Labs CBC & Chem 7: 11/20/16 00:37 11/21/16 05:18 Labs: Laboratory Last Values WBC 6.4 K/mm3 (4.5-11.0) 11/20/16 00:37 RBC 4.56 M/mm3 (3.65-5.03) 11/20/16 00:37 Hgb 12.0 gm/dl (11.8-15.2) 11/20/16 00:37 Hct 37.6 % (35.5-45.6) 11/20/16 00:37 MCV 83 fl (84-94) L 11/20/16 00:37 MCH 26 pg (28-32) L 11/20/16 00:37 MCHC 32 % (32-34) 11/20/16 00:37 RDW 14.3 % (13.2-15.2) 11/20/16 00:37 Plt Count 272 K/mm3 (140-440) 11/20/16 00:37 Lymph % (Auto) 25.3 % (13.4-35.0) 11/18/16 10:42 [place] % (Auto) 8.1 % (0.0-7.3) H 11/18/16 10:42 Eos % (Auto) 6.2 % (0.0-4.3) H 11/18/16 10:42 Baso % (Auto) 1.0 % (0.0-1.8) 11/18/16 10:42 Lymph # 1.7 K/mm3 (1.2-5.4) 11/18/16 10:42 [place] # 0.5 K/mm3 (0.0-0.8) 11/18/16 10:42 Eos # 0.4 K/mm3 (0.0-0.4) 11/18/16 10:42 Baso # 0.1 K/mm3 (0.0-0.1) 11/18/16 10:42 Seg Neutrophils % 59.4 % (40.0-70.0) 11/18/16 10:42 Seg Neutrophils # 3.9 K/mm3 (1.8-7.7) 11/18/16 10:42 PT 12.8 Sec. (12.2-14.9) 11/18/16 10:42 INR 0.97 (0.87-1.13) 11/18/16 10:42 APTT 25.3 Sec. (24.2-36.6) 11/18/16 10:42 Thrombin Time 16.9 Sec. (15.1-19.6) 11/18/16 10:42 Sodium 138 mmol/L (137-145) 11/21/16 05:18 Potassium 4.3 mmol/L (3.6-5.0) 11/21/16 05:18 Chloride 100.4 mmol/L (98-107) 11/21/16 05:18 Carbon Dioxide 24 mmol/L (22-30) 11/21/16 05:18 Anion Gap 18 mmol/L 11/21/16 05:18 BUN 23 mg/dL (9-20) H 11/21/16 05:18 Creatinine 2.0 mg/dL (0.8-1.5) H 11/21/16 05:18 Estimated GFR 42 ml/min 11/21/16 05:18 BUN/Creatinine Ratio 11.50 % 11/21/16 05:18 Glucose 91 mg/dL (75-100) 11/21/16 05:18 POC Glucose 70 (70-105) 11/21/16 22:32 Calcium 9.6 mg/dL (8.4-10.2) 11/21/16 05:18 Total Bilirubin 0.5 mg/dL (0.1-1.2) 11/20/16 00:37 Direct Bilirubin < 0.2 mg/dL (0-0.2) 11/18/16 10:42 AST 8 units/L (5-40) 11/20/16 00:37 ALT 6 units/L (7-56) L 11/20/16 00:37 Alkaline Phosphatase 58 units/L (35-129) 11/20/16 00:37 Total Protein 5.8 g/dL (6.3-8.2) L 11/20/16 00:37 Albumin 3.4 g/dL (3.9-5) L 11/20/16 00:37 Albumin/Globulin Ratio 1.4 % 11/20/16 00:37 Lipase 29 units/L (13-60) 11/18/16 10:42 Urine Color Yellow (Yellow) 11/22/16 07:55 Urine Turbidity Clear (Clear) 11/22/16 07:55 Urine pH 6.0 (5.0-7.0) 11/22/16 07:55 Ur Specific [place] 1.009 (1.003-1.030) 11/22/16 07:55 Urine Protein 100 mg/dl mg/dL (Negative) 11/22/16 07:55 Urine Glucose (UA) Neg mg/dL (Negative) 11/22/16 07:55 Urine Ketones Tr mg/dL (Negative) 11/22/16 07:55 Urine Blood Neg (Negative) 11/22/16 07:55 Urine Nitrite Neg (Negative) 11/22/16 07:55 Urine Bilirubin Neg (Negative) 11/22/16 07:55 Urine Urobilinogen < 2.0 mg/dL (<2.0) 11/22/16 07:55 Ur Leukocyte Esterase Neg (Negative) 11/22/16 07:55 Urine WBC (Auto) 1.0 /HPF (0.0-6.0) 11/22/16 07:55 Urine RBC (Auto) < 1.0 /HPF (0.0-6.0) 11/22/16 07:55 U Epithel Cells (Auto) < 1.0 /HPF (0-13.0) 11/22/16 07:55 Urine Creatinine 95.4 mg/dL (0.1-20.0) H 11/22/16 07:55 Urine Total Protein 64 mg/dL (5-11.8) H 11/22/16 07:55
[2016-11-22] MEDS: ZOCOR PO SCH (21:45)
--- NOTE | 2016-11-23 08:12 | Vascular Lab Report ---
CAROTID DUPLEX STUDY: RIGHT PSVEDV CCA PROX:7722 CCA DIST:5422 ICA PROX:5515 ICA MID:4422 ICA DIST:4220 ECA: 90 VERT: 34 20 LEFT PSVEDV CCA PROX:7927 CCA DIST:7729 ICA PROX:7031 ICA MID:5027 ICA DIST:3719 ECA: 65 VERT: 33 7 REASON FOR EXAM: Stroke. COMMENTS ON THE RIGHT: Doppler frequency analysis is consistent with 16 to 49 percent diameter reduction of the internal carotid artery. Minimal amount of plaque is seen. The common carotid artery is patent. The external carotid artery is patent. The vertebral artery has antegrade flow. COMMENTS ON THE LEFT: Doppler frequency analysis is consistent with 16 to 49 percent diameter reduction of the internal carotid artery. Minimal amount of plaque is seen. The common carotid artery is patent. The external carotid artery is patent. The vertebral artery has antegrade flow. IMPRESSION: Less than 50% diameter reduction in the internal carotid arteries bilaterally. Consider repeat carotid artery duplex in 12 months.
[2016-11-23] MEDS: BABY ASPIRIN FEEDTUBE SCH (10:00)
--- NOTE | 2016-11-23 10:12 | Discharge Summary ---
Providers - Providers Date of Admission: 11/18/16 12:07 Date of discharge: 11/23/16 Attending physician: ADRIAN ESPINO 11/19/16 Consult to Physician [CONS] Routine Consulting Provider: ALMAZ ROBERSON Reason For Exam: cva Place consult to:: rehab Notified:: y Phone number called:: [phone] Was contact made?: No Time called:: 08:29 Comment:: put on dr ta Consult to Physician [CONS] Routine Consulting Provider: INESSA ZAVALA Reason For Exam: CVA Place consult to:: [id number] Notified:: arleth Phone number called:: [phone] Was contact made?: No Time called:: 08:27 Comment:: lef message 11/19/16 08:03 Occupational Therapy Evaluate and Treat [CONS] Routine Comment: Reason For Exam: Neuro deficits Physical Therapy Evaluation and Treat [CONS] Routine Comment: Reason For Exam: Neuro deficits 11/19/16 08:34 Consult to Physician [CONS] Routine Consulting Provider: JOELLE NUÑEZ Reason For Exam: Peg site leakage Place consult to:: gastro Notified:: office Phone number called:: [phone] Was contact made?: Yes If yes, spoke with:: amanda Time called:: 12:30 11/19/16 08:35 Consult to Physician [CONS] Routine Consulting Provider: ROBERT MUÑOZ Reason For Exam: CKD Place consult to:: shantel Notified:: office Phone number called:: [phone] Was contact made?: Yes If yes, spoke with:: jade Time called:: 15:33 11/19/16 10:06 Consult to Dietitian/Nutrition [CONS] Stat Physician Instructions: Reason For Exam: to Initiate G-tube feeding duong diabetic Reason for Consult: G tube feeding 11/21/16 11:38 Speech Therapy Evaluation and Treat [CONS] Routine Reason For Exam: pt has PEG, but wants to try food 11/22/16 07:00 Consult to Physician [CONS] Routine Consulting Provider: EHSAN AGGARWAL Reason For Exam: left side weaker, prev strokes Place consult to:: Dr. Aggarwal Notified:: Vandana Phone number called:: [phone] Was contact made?: No Time called:: 10:28 Comment:: left Message Primary care physician: TREATMENT COUNSELOR Hospitalization Condition: Good Hospital course: Patient is 56 yo with coronary artery disease, CABG, multiple strokes with residual weakness, dysphagia, PEG tube. He presented with more weakness left side and leaking from PEG tube. CT head was unremarkable. He was given Aspirin, Plavix and admitted. PEG tube was evaluated by GI and found to be missing cap, this was replaced and leaking stopped. MRI not done because of AICD in place. He was evaluated by Neurologist. Left sided weakness resolved quickly, he was diagnosed with TIA. Case management was involved and he was discharged to SNF on 11/22/16. Total time spent on discharge, 35 mins Disposition: DC/TX INPT REHAB FACILITY - Discharge Diagnoses (1) TIA (transient ischemic attack) Status: Acute Qualifiers: Transient cerebral ischemia type: T (2) CKD (chronic kidney disease) stage 3, GFR 30-59 ml/min Status: Chronic (3) History of CVA with residual deficit Status: Chronic (4) Type II diabetes mellitus Status: Chronic Qualifiers: Diabetes mellitus complication status: with hyperglycemia Diabetes mellitus complication detail: D Diabetic retinopathy severity: D Proliferative retinopathy type: P Diabetes mellitus macular edema: D Diabetes mellitus fci insulin use: with fci use Laterality: L Chronic kidney disease stage: C Qualified Code(s): E11.65 - Type 2 diabetes mellitus with hyperglycemia; Z79.4 - medical terminologist (current) use of insulin (5) Cardiomyopathy Status: Chronic (6) AICD (automatic cardioverter/defibrillator) present Status: Chronic (7) Hyperlipidemia Status: Chronic Qualifiers: Hyperlipidemia type: mixed hyperlipidemia Qualified Code(s): E78.2 - Mixed hyperlipidemia (8) Hypertension Status: Chronic Qualifiers: Hypertension type: essential hypertension Qualified Code(s): I10 - Essential (primary) hypertension Core Measure Documentation - Palliative Care Palliative Care/ Comfort Measures: Not Applicable - Core Measures Any of the following diagnoses?: none Exam - Constitutional Vitals: Temp Pulse Resp BP Pulse Ox 98.5 F 75 21 131/77 95 11/23/16 06:00 11/23/16 06:00 11/23/16 06:00 11/23/16 06:00 11/23/16 06:00 Plan Activity: advance as tolerated Diet: other (Mechanical soft, renal diet. Continue tube feeding) Additional Instructions: 1.To be seen by Physician at SNF in 3-5 days. 2.Follow up with Dr. Muñoz, Nephrology in 1 week. 3.Check BMP in 1 week. 4.Diet- mechanical soft and tube feeding. To be re-evaluated in 1-2 weeks by Physician at [facility] Follow up with: [facility] [Provider Group] - 7 Days PRIMARY CARE, [Primary Care Provider] - 3-5 Days Prescriptions: Carvedilol [Coreg] 6.25 mg FEEDTUBE BID #60 tablet oxyCODONE /ACETAMINOPHEN [Percocet 5/325 mg] 1 tab PO Q6HR PRN #20 tablet PRN Reason: Pain
[2016-11-23] MEDS: ZESTRIL PO SCH (10:41)
[2016-11-23] MEDS: COREG FEEDTUBE SCH (10:41)
[2016-11-23] MEDS: PLAVIX FEEDTUBE SCH (10:41)
[2016-11-23] MEDS: PEPCID PO SCH (10:41)
[2016-11-23 10:43] VITALS: BP 129/95
--- NOTE | 2016-11-23 11:15 | Progress Note ---
Assessment and Plan Chronic kidney disease in a patient who has known history of renal failure creatinine has been stable even 3 years out he was seen in the office in 2013 and has not been to our office since then Patient does appear to have a 4 cm cyst in the kidney seen on CT scan made aware to keep the appointment for follow-up Patient has been thoroughly counseled and educated about the nature and severity of his renal dysfunction He did appear to be prerenal to some degree Low-grade proteinuria protein creatinine ratio suggestive off 700 mg protein Creatinine is currently stable at 2 Patient was advised to make an appointment for follow-up in the office blood pressure is well-controlled Noncompliance addressed and educated Subjective Principal diagnosis: left sided weakness Interval history: Seen today for follow-up no acute problems no complaints of any chest pain pressure able to drink fluid Events of 24 hours vitals labs intake output medications were reviewed Objective - Vital Signs Vital signs: Vital Signs - 12hr 11/23/16 11/23/16 11/23/16 00:00 03:46 06:00 Temperature 98.1 F 98.5 F Pulse Rate 81 Pulse Rate [ 74 75 Right] Respiratory 22 21 Rate Blood Pressure 114/72 131/77 [Right Arm] O2 Sat by Pulse 98 95 Oximetry 11/23/16 08:00 Temperature 98.7 F Pulse Rate Pulse Rate [ 73 Right] Respiratory 18 Rate Blood Pressure 129/95 [Right Arm] O2 Sat by Pulse 100 Oximetry - General Appearance General appearance: appears stated age EENT: mucous membranes moist (no pharyngeal erythema) Neck: no JVD (supple) Respiratory: Present: Clear to Ascultation (no crackles rales wheezes) Cardiology: regular (S1 and S2 normal no S3-S4) Gastrointestinal: normal (soft nontender PEG tube in place) Integumentary: no rash Neurologic: other (alert awake follows commands) - Lab 11/20/16 00:37 11/21/16 05:18 Most recent lab results Calcium 9.6 mg/dL (8.4-10.2) 11/21/16 05:18 Urine Creatinine 95.4 mg/dL (0.1-20.0) H 11/22/16 07:55 Urine Total Protein 64 mg/dL (5-11.8) H 11/22/16 07:55
--- NOTE | 2016-11-23 13:33 | Fluoroscopy Report ---
Modified barium swallow: History: Dysphagia. Findings: There is no anatomic obstruction noted to be passage of liquids, semisolid and solid food through the cervical esophagus. No aspiration. Additional findings would be provided by speech therapist. Impression: Findings at detailed above.
--- NOTE | 2016-11-30 08:38 | Query- General ---
Dear Date:_11/30/16 Dredging Inspector/CDS:Iron Moise/[place] Phone#:_[phone] Exercise your independent professional judgment when responding to this query. Questions asked do not imply a particular answer is desired or expected. We greatly appreciate your clarification on this issue. Clinical Documentation States: 56 Y/O male admitted on 11/18/16 with history of CABGX2, Afib, DM, Pacemaker, multiple strokes in the past presents to the ED with complaints of new neurologic Deficit and leaking from the PEG tube. GI Consult 11/21: Patient gives irregular information regarding his pain and leaking of the PEG. He is reporting at this time, the PEG was leaking from the end and one of the "Caps" were missing. He denies leaking from around site. GI Consult 11/22: Medical records reviewed and it is unclear as to initiation of PEG tube (not seen in medical records) Patient denies leaking at site, nursing has confirmed this. Site benign with no difficulty with feeding. Subjective: Patient is receiving feeding now, no leaking from tube. Clinical Findings Show (include reference to source document): Given the above clinical scenario can you please provide an appropriate diagnosis based on your knowledge of the patient: PHYSICIAN RESPONSE: [ x ] Leaking PEG tube [ ] No leak from PEG tube [ ] Other [ ] Unable to determine Present on Admission: [x ] Yes (Y) [ ] Clinically undeterminable (W) [ ]No(N) Please also document response in your Progress Notes and/or Discharge Summary and indicate if the condition was present on admission. MTDD
== END 2016-11-23 16:21 | DRG 919 ==
LOC: ED 10:19 → 4A 12:07 → UNDODISIN 11-19 15:15
PROVIDERS: ADMIT Internal Medicine; ATTEND Internal Medicine
DX: T85.638A Leakage of other specified internal prosthetic devices, implants and grafts, initial encounter (principal); I50.23 Acute on chronic systolic (congestive) heart failure; N17.9 Acute kidney failure, unspecified; I13.0 Hypertensive heart and chronic kidney disease with heart failure and stage 1 through stage 4 chronic kidney disease, or unspecified chronic kidney disease; I69.354 Hemiplegia and hemiparesis following cerebral infarction affecting left non-dominant side; G45.9 Transient cerebral ischemic attack, unspecified; E44.1 Mild protein-calorie malnutrition; R47.1 Dysarthria and anarthria; E11.65 Type 2 diabetes mellitus with hyperglycemia; E11.3519 Type 2 diabetes mellitus with proliferative diabetic retinopathy with macular edema, unspecified eye; I25.10 Atherosclerotic heart disease of native coronary artery without angina pectoris; E78.5 Hyperlipidemia, unspecified; K21.9 Gastro-esophageal reflux disease without esophagitis; M62.81 Muscle weakness (generalized); N18.3 Chronic kidney disease, stage 3 (moderate); E11.22 Type 2 diabetes mellitus with diabetic chronic kidney disease; Z79.4 Long term (current) use of insulin; Z95.0 Presence of cardiac pacemaker; Z95.1 Presence of aortocoronary bypass graft; Z88.0 Allergy status to penicillin; I69.398 Other sequelae of cerebral infarction; Z91.14 Patient's other noncompliance with medication regimen; I69.392 Facial weakness following cerebral infarction; Z79.82 Long term (current) use of aspirin; Z79.01 Long term (current) use of anticoagulants; Z68.27 Body mass index [BMI] 27.0-27.9, adult
CPT/HCPCS: 36415; 70450; 74176; 74230; 76770; 80048; 80053; 80074; 81001; 82570; 82962; 83690; 84156; 85025; 85027; 85610; 85670; 85730; 90686; 93005; 93010; 93306; 93880; G8978-GP; G8979-GP; G8987-GO; G8988-GO; G8989-GO; G8996-GN; G8997-GN; J1815; J2270; J7030